=== PATIENT | male | born 1960 | race Caucasian/White ===

== ENCOUNTER 2018-05-19 06:24 | Observation (INO) ==
[2018-05-19] MEDS ORDERED: Bupivacaine/Epinephrine 0.5% Inj 50 ML Vial ONE (07:11)
[2018-05-19] MEDS ORDERED: fentaNYL Citrate Inj 100 MCG/2 ML Ampul ONE ×2 (08:18→12:12)
[2018-05-19] MEDS: ceFAZolin 2 GM Premix Inj 2 GM/50 ML PIGGYBACK IV.SIG ONE ×2 (09:20→18:23)
[2018-05-19] MEDS: Bupivacaine/Epinephrine 0.5% Inj 50 ML Vial ONE ×2 (10:52→18:22)
[2018-05-19] MEDS: Thrombin Topical Soln 5,000 UNIT Vial TOPICAL ONE ×2 (10:53→18:23)
[2018-05-19] MEDS ORDERED: Phenylephrine/NS 1000 MCG/10ML Syringe IV.PUSH ONE (12:00)
[2018-05-19] MEDS ORDERED: Glycopyrrolate Inj 1 MG/5 ML Syringe IV.PUSH ONE (12:00)
[2018-05-19] MEDS ORDERED: Neostigmine Inj 5 MG/5 ML Syringe IV.PUSH ONE (12:00)
[2018-05-19] MEDS ORDERED: Lidocaine PF 1% Inj 5 ML Syringe INFILTRATN ONE (12:00)
[2018-05-19] MEDS ORDERED: Morphine Inj 4 MG/ML Vial ONE (12:12)
[2018-05-19] MEDS ORDERED: Bisacodyl 10 MG Supp RECTAL PRN (12:12)
[2018-05-19] MEDS ORDERED: *morphine SULFATE 10 MG/ML PERIprocedure ONLY ONE ×2 (12:35→13:39)
--- NOTE | 2018-05-19 13:02 | XR ---
EXAM DATE: 05/19/2018 12:58 PM EDT AGE/SEX: 58 years / Male INDICATIONS: Herniated disk CLINICAL DATA: This is the patient's initial encounter. Patient reports that signs and symptoms have been present for 1 day and indicates a pain score of Nonresponsive. MEDICAL/SURGICAL HISTORY: . Herniated disk None. COMPARISON: No prior exams available for comparison. FINDINGS: Lateral intraoperative fluoroscopic views of the lower lumbar spine demonstrate localization probe pr ojecting posterior to the L4-5 intervertebral disc space on image 1 and posterior to the L3-4 articul ar facet joint on image 2. CONCLUSION: Localization as above. Electronically signed by: Stew Carrion MD 05/19/2018 1:01 PM EDT
--- NOTE | 2018-05-19 13:03 | P.OP ---
- Preoperative Diagnosis (1) Lumbar spinal stenosis - Postoperative Diagnosis (1) Lumbar spinal stenosis Date of procedure: 05/19/18 Procedure: Left L3-4, L4-5 hemilaminectomy, mesiofacetectomy, foraminotomy, microsurgical resection of the disk Surgeon: Torey Huff MD National Facilities Manager: Isabel Nguyen Pathology: none sent Operation and Findings: INDICATIONS FOR THE SURGICAL PROCEDURE Mr Tim is a 58 year-old male who presented with intractable mechanical back pain and clinical evidence of left L4 and L5 lower extremity radiculopathy. He was found to have significant lumbar spinal stenosis with significant mass effect on the neural structures which correlated with the clinical symptoms. The patient has failed maximum nonsurgical management including multiple modalities of conservative treatment as well as pain management interventions by an interventional pain specialist. A surgical decompression was indicated as a last resort. The [id number] details of the procedure, indications, alternatives, risks and potential complications were fully discussed with the patient. The patient fully understood. All the questions were answered. No guarantees were given. The patient voiced requesting the procedure and provided informed consents. The patient was offered the alternative of delaying the procedure and continuing with nonsurgical management. DETAILS OF THE SURGICAL PROCEDURE After the induction of general anesthesia, endotracheal intubation was performed. A Hedrick catheter, bilateral ALETHA hose and sequential compression devices were placed and kept throughout the procedure. The patient was positioned prone on a Benito table over a Joao frame. All pressure points were carefully padded with eggcrate mattress. The eyes were tapped shut after ointment was applied by the anesthesiologist to prevent corneal abrasion. A Marilia hugger was placed over the exposed lower body to maintain control of the core body temperature. The lower lumbar region was prepped and draped in the usual sterile fashion. A spinal needle was placed for localization and an x- ray performed with a C-arm. A skin incision was made in the midline over the spinous processes L3, L4, L5 with a #10 blade. Small subcutaneous bleeders were controlled with a bipolar and the dissection was carried out through the lumbar fascia exposing the spinous processes. A subperiostial dissection was performed with a Leslie elevator and a Bovie over the L3, L4, L5 spinous process lamina and facets. A microdiscectomy self-retaining retractor was placed on the incision and an x- ray was obtained with an instrument placed underneath the lamina of L4. At this point in the procedure the operating microscope was draped in the usual sterile fashion and brought to the field. The rest of the surgical procedure was performed using microsurgical dissection technique with exception of the closure. Once the level was confirmed, a decompressive laminectomy was performed at L3-4 , and L4-5 on the left side using the TPS drill with an 4mm drill bit. A medial facetectomy was performed and the superior free border of the ligamentum flavum was dissected with a ligament dissector and removed with a thin footplate 2 mm Kerrison. The medial facetectomy was done and the L4, and L5 nerve root were identified and followed towards its exit in the foramen. Epidural veins located laterally to the dural sac were coagulated with a bipolar and incised with microscissors. Gentle medial retraction of the dural sac allowed inspection of the disc space. The patient had severe facet arthropathy with hypertrhopy of the joint facets and ligamentum flavum resulting in mass effect over the dural sac and nerve roots. In addition, there was a broad-based disc protusions at L3- L4, and L4- L5, contributing to the stenosis. The annulus fibrosus of the disc L3-4, and L4-5 were coagulated with the bipolar and incised with an 11 blade. The protuding discs were carefully dissected from the surrounding tissue and removed with pituitary forceps. Then , a microdiscectomy was carried out in the standard fashion using straight and up-biting pituitary forceps. A good decompression of the dural sac and nerve root was achieved. The exit of the nerve root was inspected for residual disc fragments and hemostasis was secured with the bipolar. The incision was irrigated with a large amount of saline solution. A Valsalva maneuver failed to show any cerebrospinal fluid leak or bleeding. The decompression was assessed again and found to be satisfactory. Vancomycin powder was applied to the wound to prevent infection The incision was then closed in layers. The fascia was closed with 0 Vicryl sutures in an interrupted fashion. The superficial fascia was closed with 0 Vicryl sutures. The fascia was infiltrated with 0.5% Marcaine with epinephrine 1:100,000 dilution. The subcutaneous tissue was irrigated then closed with 0 Vicryl and 3 -0 Vicryl. The skin was closed with 4-0 running subcuticular Vicryl. A sterile dressing was applied. At the end of the procedure, the sponge, needle and instrument counts were all correct. Estimated blood loss was less than 100cc. No blood transfusion was given. No intraoperative complications occurred. The patient received prophylactic antibiotics. The patient was then extubated and transferred to the recovery room in stable condition.
[2018-05-19] MEDS ORDERED: Dextrose 50% in Water 50 ML Vial IV.PUSH PRN ×2 (13:05→13:07)
[2018-05-19] MEDS ORDERED: INSULIN DEGLUDEC SQ SCH (14:15)
[2018-05-19] MEDS ORDERED: Insulin NovoLOG Aspart Correctional Sugar Inj SQ ONE (14:51)
[2018-05-19] MEDS: ceFAZolin 2 GM Premix Inj 2 GM/50 ML PIGGYBACK IV.SIG SCH (16:50)
--- NOTE | 2018-05-19 17:58 | ECG ---
Date Performed: 05/19/2018 Time Performed: 07:13:58 PTAGE: 58 years EKG: Sinus rhythm NORMAL ECG Since the PREVIOUS TRACING , no significant change noted PREVIOUS TRACIN10/05/2014 10.27.30 DOCTOR: Rohan Abraham Interpretating Date/Time 05/19/2018 17:56:56
[2018-05-19] MEDS: Insulin NovoLOG Aspart Correctional Sugar Inj SQ SCH (18:00)
[2018-05-19] MEDS: Senna/Docusate Sodium 8.6/50 MG Tablet PO SCH (20:36)
[2018-05-20] MEDS: ceFAZolin 2 GM Premix Inj 2 GM/50 ML PIGGYBACK IV.SIG SCH ×2 (00:50→09:06)
[2018-05-20] MEDS: Insulin NovoLOG Aspart Correctional Sugar Inj SQ SCH ×4 (00:51→13:47)
[2018-05-20] MEDS ORDERED: amLODIPine 10 MG Tablet PO SCH (09:00)
[2018-05-20] MEDS ORDERED: Sertraline 100 MG Tablet PO SCH (09:00)
[2018-05-20] MEDS ORDERED: JARDIANCE 25 MG PO SCH (09:00)
[2018-05-20] MEDS ORDERED: Pantoprazole Sodium 20 MG DR Tablet PO SCH (09:00)
[2018-05-20] MEDS ORDERED: VALSARTAN 80 MG PO SCH (09:00)
[2018-05-20] MEDS ORDERED: PT OWN MED: TRADJENTA (LINAGLIPTIN) 5MG PO DAILY PO SCH (09:00)
[2018-05-20] MEDS: Senna/Docusate Sodium 8.6/50 MG Tablet PO SCH (09:01)
--- NOTE | 2018-05-20 09:57 | P.DS ---
Date of admission: 05/19/18 12:12 Primary care physician: Nathalia Cordon MD Brief History from admission: Mr Tim is a 58 year-old male who presented with intractable mechanical back pain and clinical evidence of left L4 and L5 lower extremity radiculopathy. He was found to have significant lumbar spinal stenosis with significant mass effect on the neural structures which correlated with the clinical symptoms. The patient has failed maximum nonsurgical management including multiple modalities of conservative treatment as well as pain management interventions by an interventional pain specialist. A surgical decompression was indicated as a last resort. DS: Medications - Discharge Medications Prescriptions: hydrocodone-acetaminophen 1 tab PO Q4H PRN #15 tab PRN Reason: Pain DS: Summary Hospital Course: Mr. Tim underwent a Left L3-4, L4-5 hemilaminectomy, mesiofacetectomy, foraminotomy, microsurgical resection of the disk on 05/19/18 for Lumbar spinal stenosis. His surgery went well without complications. He will be discharged home in stable conditions. - Time Spent with Patient Total time spent providing and/or coordinating discharge services: - Quality: VTE Deep Vein Thrombosis/Pulmonary Embolism Present on Admission: No Exam Vital signs: Vital Signs 05/19/18 12:06 05/19/18 12:15 05/19/18 12:30 Temperature 98.0 F Pulse Rate 82 78 72 Respiratory Rate 16 16 16 Blood Pressure 134/70 139/75 130/70 Pulse Oximetry 97 98 95 05/19/18 12:45 05/19/18 13:00 05/19/18 14:00 Temperature Pulse Rate 72 74 68 Respiratory Rate 16 16 16 Blood Pressure 119/63 124/66 116/60 Pulse Oximetry 95 95 97 05/19/18 15:00 05/19/18 16:00 05/19/18 18:00 Temperature Pulse Rate 70 70 68 Respiratory Rate 16 16 16 Blood Pressure 104/59 L 108/60 121/70 Pulse Oximetry 98 97 97 05/19/18 20:00 05/20/18 00:00 05/20/18 02:30 Temperature 97.3 F L 98.7 F Pulse Rate 21 L 66 Respiratory Rate 21 20 15 Blood Pressure 117/75 108/65 Pulse Oximetry 98 96 05/20/18 04:00 05/20/18 08:00 Temperature 97.9 F 98.7 F Pulse Rate 78 67 Respiratory Rate 19 16 Blood Pressure 141/93 H 146/80 H Pulse Oximetry 93 L 96 Intake & Output 05/19/18 05/20/18 05/20/18 18:59 06:59 18:59 Intake Total 2500 / 2500 950 / 950 Output Total 250 / 250 Balance 2250 / 2250 950 / 950 Weight 88 kg 88 kg Intake: IV 100 / 100 50 / 50 Ancef 2 GM Premix Inj 2 gm In 100 / 100 50 / 50 50 ml @ 100 mls/hr IV.SIG Q8H FRANKY Rx#:[id number] Oral 900 / 900 Anesthesia Amount 2400 / 2400 Output: Estimated Blood Loss 100 / 100 Urine Amount (Catheter) 150 / 150 Indwelling Urethral Catheter 150 / 150 Other: # Voids 3 Date of Last Bowel Movement 05/19/18 Weight On Admission 88 kg Results Procedures completed during hospitalization: Left L3-4, L4-5 hemilaminectomy, mesiofacetectomy, foraminotomy, microsurgical resection of the disk Labs on day of discharge: Labs from last 24 hours 05/20/18 05/20/18 05/19/18 08:15 06:03 23:24 POC Glucose 165 H 162 H 139 H Nasal Screen MRSA (PCR) 05/19/18 05/19/18 05/19/18 17:51 14:54 12:13 POC Glucose 210 H 208 H 139 H Nasal Screen MRSA (PCR) 05/19/18 07:00 POC Glucose Nasal Screen MRSA (PCR) Not detected - Impressions ITS Impressions Lumbar Spine X-Ray 05/19/18 00:00 CONCLUSION: Localization as above. Discharge Plan - Discharge Disposition Patient Disposition: 01 Discharge Home - Discharge Condition Condition: Good - Discharge Order Discharge Orders: Discharge Order (Routine); Ordered 05/20/18 Ordered By: Jenae Griffiths - Physicians Team Primary Care Provider: Nathalia Cordon Attending Provider: Torey Huff - Rxs /Orders / Referrals /Forms Prescriptions: New hydrocodone-acetaminophen 10-325 mg Tablet 1 tab PO Q4H PRN (Reason: Pain) Qty: 15 RF: 0 Continue amlodipine 10 mg Tablet 10 mg PO DAILY empagliflozin [Jardiance] 25 mg Tablet 25 mg PO DAILY insulin aspart U-100 [Novolog Flexpen U-100 Insulin] 100 unit/mL Insulin Pen 7 unit SUB-Q TID insulin degludec [Tresiba FlexTouch U-100] 100 unit/mL (3 mL) Insulin Pen 36 unit SUB-Q DAILY linagliptin [Tradjenta] 5 mg Tablet 5 mg PO DAILY omeprazole 20 mg Capsule,Delayed Release(Dr/Ec) 20 mg PO DAILY sertraline 100 mg Tablet 200 mg PO DAILY valsartan 80 mg Tablet 80 mg PO DAILY Referrals: Nathalia Cordon MD [Primary Care Provider] - See Instructions - Discharge Instructions Patient Printed Instructions: Laminectomy (DC)
[2018-05-20 12:13] VITALS: BP 152/74; PULSE 71; RESP 18; TEMP 98.6; O2SAT 95
== END 2018-05-20 14:14 | disposition home or self-care (01) ==
LOC: HSDI 06:24 → N06 06:24 → HSDC 06:24 → N06 18:39
PROVIDERS: ADMIT Neurological Surgery; ATTEND Neurological Surgery

== ENCOUNTER 2018-06-06 18:14 | Inpatient (IN) ==
[2018-06-06] MEDS ORDERED: Sod Chloride 0.9% Inj 2,000 ML IV.SIG ONE (18:57)
[2018-06-06] MEDS ORDERED: Sod Chloride 0.9% Inj 1,000 ML IV.SIG ONE (18:57)
[2018-06-06 19:23] LABS: VBG Base Excess -26.7 mmol/L (-2-2); VBG Blood Gas Oxygen Content 14.8 Vol % (9.0-17.0); VBG PCO2 18 mmHG (44-48); VBG PH 6.91 (7.360-7.400); VBG PO2 46 mmHG (35-40)
[2018-06-06] MEDS ORDERED: Potassium Chlor 40 mEq Premix 40 MEQ/100 ML PIGGYBACK IV.SIG PRN ×2 (19:32)
[2018-06-06] MEDS ORDERED: Potassium Chlor 20 mEq Premix 20 MEQ/100 ML PIGGYBACK IV.SIG PRN ×3 (19:32)
[2018-06-06 19:45] LABS: Baso % (Auto) 0.3 % (0.0-2.0); Hematocrit 48.8 % (39.0-51.0); Hemoglobin 15.2 gm/dL (13.0-17.0); Lymph # (Auto) 0.3 th/mm3 (1.0-4.8); Lymph % (Auto) 2.4 % (9.0-44.0); Mean Corpuscular HGB Conc 31.2 % (32.0-36.0); Mean Corpuscular Hemoglobin 32.9 pg (27.0-34.0); Mean Corpuscular Volume 105.4 fL (80.0-100.0); Mono # (Auto) 0.6 th/mm3 (0.0-0.9); Mono % (Auto) 4.2 % (0.0-8.0); Neut # (Auto) 12.7 th/mm3 (1.8-7.7); Neut % (Auto) 93.1 % (16.0-70.0); Platelet Count 230 th/mm3 (150-450); Red Blood Count 4.63 mil/mm3 (4.50-5.90); Red Cell Distribution Width 14.6 % (11.6-17.2); White Blood Count 13.7 th/mm3 (4.0-11.0)
[2018-06-06 20:36] LABS: Lymphocytes 1 % (9-44); Metamyelocytes 1 % (0-1); Monocytes 5 % (0-8); Myelocytes 2 % (0-0)
[2018-06-06 20:37] LABS: Platelet Estimate Normal (Normal); Platelet Morphology Normal (Normal); Toxic Vacuolation Present
[2018-06-06] MEDS: Sod Chloride 0.9% Inj 1,000 ML IV.CONT SCH (20:53)
[2018-06-06] MEDS: Insulin Regular (For Infusion) 100 UNIT in Sodium Chlor 0.9% Inj 99 ML IV.CONT PRN (20:53)
[2018-06-06 20:55] LABS: Alkaline Phosphatase 197 U/L (45-117); Beta Hydroxybutyric Acid 12.93 mmol/L (0.00-0.39); Creatine Kinase 655 U/L (39-308); Total Protein 7.4 g/dL (6.4-8.2)
[2018-06-06 20:57] LABS: Alanine Aminotransferase 47 U/L (12-78); Albumin 3.4 g/dL (3.4-5.0); Anion Gap 29 meq/L (5-15); Aspartate Aminotransferase 48 U/L (15-37); Blood Urea Nitrogen 65 mg/dL (7-18); Calcium 8.8 mg/dL (8.5-10.1); Chloride 83 meq/L (98-107)
[2018-06-06 20:58] LABS: Glomerular Filtration Rate 30 mL/min (>89)
[2018-06-06 21:08] LABS: Glucose,Random 526 mg/dL (74-106); Sodium 117 meq/L (136-145)
--- NOTE | 2018-06-06 21:14 | P.HPCC ---
History of Present Illness Primary Care Physician: Nathalia Cordon MD Chief Complaint: Altered mental status History of Present Illness: 58-year-old male with a medical history significant for diabetes mellitus who recently underwent decompression surgery for lumbar spine on 05/19 and was subsequently discharged on 05/[address] Huff. He underwent a follow-up as outpatient with Dr. Huff's office on 06/05. He reportedly had stopped taking his insulin 2 days back and he developed worsening mental status since yesterday and was brought to the ER by his today where he was noted to be confused and disoriented and appeared dehydrated. His fingerstick glucose was 500s, ABG done in the ER revealed severe metabolic acidosis. BMP was still pending when I evaluated the patient. He had received IV insulin and was to be started on an insulin drip at the time of my evaluation. He had also received 2 L normal saline bolus and was getting his third liter IV fluid. Patient was awake and alert however could not tell me the date month or year. He could not tell me that he was in the hospital though he was following commands appropriately. He was slightly tachypneic however did not appear to be in any acute distress. ER and diagnosed patient with diabetic ketoacidosis earlier and has instituted DKA protocol. Inpatient Certification: I certify that the inpatient services were ordered in accordance with Medicare regulations governing the order. This includes certification that hospital inpatient services are reasonable and necessary and in the case of services not specified as inpatient-only under 42 CFR 419.22(n), that they are appropriately provided as inpatient services in accordance to with the 2-midnight benchmark under 43 CFR 412.3(e) Estimated Total Length of Stay (Days): 5 Plans for Post Hospital Care: Not yet determined Review of Systems All other systems reviewed negative except as stated in HPI, unobtainable due to mental status PMFSH - History History Provided By: Patient, Family Member - Medical History Medical History: Medical History (Last Reviewed 06/06/18 @ 19:03 by [email or web address]) Back pain Diabetes GERD (gastroesophageal reflux disease) Hypertension Tear of biceps muscle - Surgical History Surgical History: Surgical History (Last Updated 06/06/18 @ 19:03 by [email or web address]) Previous back surgery History of tonsillectomy and adenoidectomy History of total replacement of right hip Hx of cataract surgery - Tobacco History Second Hand Smoke Exposure: No Tobacco Use In Past 30 Days: No Smoking Status: Former smoker - Alcohol History How Often Do You Have a Drink Containing Alcohol: 4 or more times a week - Substance Use History Substance History: No History of Abuse - Travel History Recent Travel in the [place] Within the Last 8 Weeks: No Recent Travel Out of the Country Within the Last 8 Weeks: No - Immunization History Tetanus Immunization: Unsure Hx Influenza Vaccine This Season: No Medications and Allergies Active Medications: Active Medications Potassium Chloride (Kcl 20 Meq Premix Inj) 20 meq in 100 mls @ 100 mls/hr IV.SIG Q1H PRN PRN Reason: for K+ 4.5 to 5 Potassium Chloride (Kcl 20 Meq Premix Inj) 20 meq in 100 mls @ 50 mls/hr IV.SIG Q2H PRN PRN Reason: for K+ 4.5 to 5 Potassium Chloride (Kcl 20 Meq Premix Inj) 20 meq in 100 mls @ 100 mls/hr IV.SIG Q1H PRN PRN Reason: for K+ 3.5 to 4.4 Potassium Chloride (Kcl 20 Meq Premix Inj) 20 meq in 100 mls @ 50 mls/hr IV.SIG Q2H PRN PRN Reason: for Initial K+ ONLY < 3.5 Potassium Chloride (Kcl 40 Meq Premix Inj) 40 meq in 100 mls @ 100 mls/hr IV.SIG Q1H PRN PRN Reason: for Initial K+ ONLY < 3.5 Potassium Chloride (Kcl 20 Meq Premix Inj) 20 meq in 100 mls @ 50 mls/hr IV.SIG Q2H PRN PRN Reason: for Subsequent K+ < 3.5 Potassium Chloride (Kcl 40 Meq Premix Inj) 40 meq in 100 mls @ 50 mls/hr IV.SIG Q2H PRN PRN Reason: for Subsequent K+ < 3.5 Sodium Phosphate 15 mmol/ (Sodium Chloride) 105 mls @ 25 mls/hr IV.SIG UNSCH PRN PRN Reason: for Phosphate Level < 1.0 Dextrose/Sodium Chloride (D5w/Normal Saline Inj) 1,000 mls @ 200 mls/hr IV.CONT .Q5H FRANKY Potassium Chloride (Kcl 20 Meq Premix Inj) 20 meq in 100 mls @ 50 mls/hr IV.SIG Q2H PRN PRN Reason: for K+ 3.5 to 4.4 Sodium Chloride (Ns Inj) 1,000 mls @ 250 mls/hr IV.CONT .Q4H FRANKY Insulin Human Regular 100 unit (/ Sodium Chloride) 100 mls @ 10 mls/hr IV.CONT TITRATE PRN; Protocol PRN Reason: See protocol Sodium Bicarbonate (Sodium Bicarbonate 8.4% Inj) 100 meq IV.PUSH UNSCH PRN PRN Reason: for pH less than 6.9 Sodium Bicarbonate (Sodium Bicarbonate 8.4% Inj) 50 meq IV.PUSH UNSCH PRN PRN Reason: for pH 6.9 to 7.0 Last Admin: 06/06/18 20:27 Dose: 50 meq Allergies Allergy/AdvReac Type Severity Reaction Status Date / Time metformin Allergy Severe Abdominal Verified 05/19/18 07:07 Pain prednisone Allergy Severe Rash Verified 05/19/18 07:07 diclofenac Allergy Intermediate Swelling Verified 05/19/18 07:07 lisinopril Allergy Mild DRY COUGH Verified 05/19/18 07:07 Home Medications Medication Instructions Recorded Confirmed Type amlodipine 10 mg PO DAILY 05/18/18 05/19/18 History empagliflozin [Jardiance] 25 mg PO DAILY 05/18/18 05/19/18 History insulin aspart U-100 [Novolog 7 unit SUB-Q TID 05/18/18 05/19/18 History Flexpen U-100 Insulin] insulin degludec [Tresiba 36 unit SUB-Q DAILY 05/18/18 05/19/18 History FlexTouch U-100] linagliptin [Tradjenta] 5 mg PO DAILY 05/18/18 05/19/18 History omeprazole 20 mg PO DAILY 05/18/18 05/19/18 History sertraline 200 mg PO DAILY 05/18/18 05/19/18 History valsartan 80 mg PO DAILY 05/18/18 05/19/18 History Results - Labs CBC & Chem 7: 06/06/18 19:30 06/06/18 19:30 Labs: Short CBC 06/06/18 Range/Units 19:30 WBC 13.7 H (4.0-11.0) th/mm3 Hgb 15.2 (13.0-17.0) gm/dL Hct 48.8 (39.0-51.0) % Plt Count 230 (150-450) th/mm3 Exam Vital signs: Vital Signs 06/06/18 18:19 06/06/18 18:57 06/06/18 18:58 Temperature 98.7 F Pulse Rate 76 78 Respiratory Rate 42 H 28 H Blood Pressure 120/61 137/72 Pulse Oximetry 95 99 100 06/06/18 19:59 Temperature Pulse Rate 87 Respiratory Rate 22 Blood Pressure 136/66 Pulse Oximetry 100 Intake & Output 06/06/18 06/06/18 06/07/18 06:59 18:59 06:59 Weight 97.522 kg Narrative: HEENT/Neuro: No pallor or icterus, tongue dry, JANUARY, Awake alert, disoriented/ confused, nonfocal grossly, moving all 4 extremities Neck: No JVD Chest/pulmonary: CTA bilaterally Cardiovascular: S1-S2 regular no gallop or murmur GI/abdomen: Soft, nontender, bowel sounds present Extremities: Warm bilaterally, no edema Caprini VTE Risk Assessment Caprini VTE Risk Assessment: Moderate/High Risk (score >= 2) Caprini Risk Assessment Model: Point Value = 1 Point Value = 2 Point Value = 3 Point Value = 5 Age 41-60 Minor surgery BMI > 25 kg/m2 Swollen legs Varicose veins or History of unexplained or recurrent spontaneous Oral contraceptives or hormone replacement Sepsis (< 1 month) Serious lung disease, including pneumonia (< 1 month) Abnormal pulmonary function Acute myocardial infarction Congestive heart failure (< 1 month) History of inflammatory bowel disease Medical patient at bed rest Age 61-74 Arthroscopic surgery Major open surgery (> 45 min) Laparoscopic surgery (> 45 min) Malignancy Confined to bed (> 72 hours) Immobilizing plaster cast Central venous access Age >= 75 History of VTE Family history of VTE Factor V Leiden Prothrombin [id number] Lupus anticoagulant Anticardiolipin antibodies Elevated serum homocysteine Heparin-induced thrombocytopenia Other congenital or acquired thrombophilia Stroke (< 1 month) Elective arthroplasty Hip, pelvis, or leg fracture Acute spinal cord injury (< 1 month) Prophylaxis Regimen: Total Risk Factor Score Risk Level Prophylaxis Regimen 0-1 Low Early ambulation 2 Moderate Order ONE of the following: *Sequential Compression Device (SCD) *Heparin 5000 units SQ BID 3-4 Higher Order ONE of the following medications: *Heparin 5000 units SQ TID *Enoxaparin/Lovenox 40 mg SQ daily (WT < 150 kg, CrCl > 30 mL/min) *Enoxaparin/Lovenox 30 mg SQ daily (WT < 150 kg, CrCl > 10-29 mL/min) *Enoxaparin/Lovenox 30 mg SQ BID (WT < 150 kg, CrCl > 30 mL/min) AND/OR *Sequential Compression Device (SCD) 5 or more Highest Order ONE of the following medications: *Heparin 5000 units SQ TID (Preferred with Epidurals) *Enoxaparin/Lovenox 40 mg SQ daily (WT < 150 kg, CrCl > 30 mL/min) *Enoxaparin/Lovenox 30 mg SQ daily (WT < 150 kg, CrCl > 10-29 mL/min) *Enoxaparin/Lovenox 30 mg SQ BID (WT < 150 kg, CrCl > 30 mL/min) AND *Sequential Compression Device (SCD) Assessment and Plan - Assessment and Plan Plan: 58-year-old male with: Encephalopathy Dehydration Uncontrolled diabetes mellitus Metabolic acidosis most likely DKA (chemistries pending) Recent back surgery Plan: Neuro: Follow neuro status. Avoid sedatives and narcotics. Most likely altered mental status secondary to DKA. Will obtain head CT without contrast. Cardiovascular: IV hydration, watch for hypotension. Will use labetalol as needed for hypertension. Resume p.o. antihypertensives in a.m if no hypotension. Pulmonary: Supplemental O2 as needed. Chest x-ray appears clear with no obvious infiltrates. Bronchodilators as needed. GI/liver: N.p.o. for now. Zofran as needed for nausea vomiting. Renal/: IV hydration, strict intake output, monitor and replete electrolytes, follow BUN creatinine. Chemistries still pending at the time of my evaluation. ID: No antibiotics indicated at this time. Endocrine: DKA protocol started in the ER. Still awaiting BMP. Heme: Follow CBC Prophylaxis: PPI/SCDs. Subcu Lovenox starting tomorrow. Condition critical Time spent on critical care excluding procedures 50 minutes
[2018-06-06] MEDS ORDERED: Bisacodyl 10 MG Supp RECTAL PRN (21:15)
[2018-06-06 21:17] LABS: CKMB Percent 3.4 % (0.0-4.0)
[2018-06-06] MEDS ORDERED: Dextrose 50% in Water 50 ML Vial IV.PUSH ONE (21:21)
--- NOTE | 2018-06-06 21:33 | ED ---
HPI General Chief Complaint: Altered Mental Status Stated Complaint: medical Time Seen by Provider: 06/06/18 18:40 Source: patient and family Mode of arrival: wheelchair Limitations: altered mental status History of Present Illness HPI narrative: 58-year-old male the presents to the ED for evaluation of altered mental status. Patient has a history of diabetes and takes insulin. Per significant other patient stopped taking his insulin about 2 days ago possibly. Patient has been becoming more altered since yesterday. Before this patient was normal. Patient did had a surgery about 2 weeks ago for his lower back by Dr. Huff. He has been doing well postop. Patient was actually seen yesterday by the office of Dr. Huff for postop check and her family member they did not find him to be somewhat altered. Unclear as to what happened. Patient denies any chest pain. He does state being somewhat short of breath. He denies any urinary or bowel movement issues. Most of the history is obtained through the significant other as patient himself cannot give much history. Patient does appear to be altered and confused and is hard to get a history from him. She does appear to smell of acetone. Related Data Home Medications Medication Instructions Recorded Confirmed amlodipine 10 mg PO DAILY 05/18/18 05/19/18 empagliflozin [Jardiance] 25 mg PO DAILY 05/18/18 05/19/18 insulin aspart U-100 [Novolog 7 unit SUB-Q TID 05/18/18 05/19/18 Flexpen U-100 Insulin] insulin degludec [Tresiba 36 unit SUB-Q DAILY 05/18/18 05/19/18 FlexTouch U-100] linagliptin [Tradjenta] 5 mg PO DAILY 05/18/18 05/19/18 omeprazole 20 mg PO DAILY 05/18/18 05/19/18 sertraline 200 mg PO DAILY 05/18/18 05/19/18 valsartan 80 mg PO DAILY 05/18/18 05/19/18 Previous Rx's Medication Instructions Recorded hydrocodone-acetaminophen 1 tab PO Q4H PRN #15 tab 05/19/18 Allergies Allergy/AdvReac Type Severity Reaction Status Date / Time metformin Allergy Severe Abdominal Verified 05/19/18 07:07 Pain prednisone Allergy Severe Rash Verified 05/19/18 07:07 diclofenac Allergy Intermediate Swelling Verified 05/19/18 07:07 lisinopril Allergy Mild DRY COUGH Verified 05/19/18 07:07 Review of Systems ROS: all other systems reviewed are negative [facility] Medical History Medical History Back pain (Acute) Diabetes (Acute) GERD (gastroesophageal reflux disease) (Acute) Hypertension (Acute) Tear of biceps muscle (Acute) Surgical History Surgical History Previous back surgery (Acute) History of tonsillectomy and adenoidectomy (Acute) History of total replacement of right hip (Acute) Hx of cataract surgery (Acute) Social History Social History Substance History: Active Abuse Second Hand Smoke Exposure: No Smoking Status: Former smoker How Often Do You Have a Drink Containing Alcohol: 4 or more times a week Recent Travel in [facility] within the Last 8 Weeks: No Recent Out of Country Travel within the Last 8 Weeks: No Immunization History Tetanus Immunization: Unsure Hx Influenza Vaccine This Season: No Exam Narrative Exam Narrative: GENERAL: Altered and somewhat diaphoretic SKIN: Focused skin assessment warm/dry. HEAD: Atraumatic. Normocephalic. EYES: Pupils equal and round. No scleral icterus. No injection or drainage. ENT: No nasal bleeding or discharge. Mucous membranes pink and moist. Tongue is midline. No uvula deviation. NECK: Trachea midline. No JVD. CARDIOVASCULAR: Regular rate and rhythm. No murmur appreciated. RESPIRATORY: No accessory muscle use. Clear to auscultation. Breath sounds equal bilaterally. GASTROINTESTINAL: Abdomen soft, non-tender, nondistended. Hepatic and splenic margins not palpable. MUSCULOSKELETAL: No obvious deformities. No clubbing. No cyanosis. No edema. Full range of motion of the upper and lower extremities bilaterally. 2+ pulses bilaterally. NEUROLOGICAL: Awake and alert. No obvious cranial nerve deficits. Motor grossly within normal limits. Normal speech. PSYCHIATRIC: Altered mood and affect; insight and judgment minimal Course Reevaluation(s) Reevaluation #1: patient discussed with environmental construction engineer, Dr Silva; patient was seen at the bedside by the environmental construction engineer; once metabolic panel resulted -- environmental construction engineer notified --aware patient had received bolus regular insulin 10 u IV 3 liters bolus NS and insulin infusion started with bgm 431 from 503 -- metabolic panel: sodium 117,potassium 6.0, bicarb <5, ag 29, glucose 526, and bun/cr: 65/2.26 --environmental construction engineer requested in the ED the patient receive additional bolus of regular insulin 10 U IV and 1 amp D50 IV prior to leaving the ED; had already received 1 amp sodium bicarb upon resulting venous pH of 6.9 per protocol. Initial Documented Vital Signs Temperature 98.7 F 06/06/18 18:19 Pulse Rate 76 06/06/18 18:19 Respiratory Rate 42 H 06/06/18 18:19 Blood Pressure 120/61 06/06/18 18:19 Pulse Oximetry 95 06/06/18 18:19 Last Documented Vital Signs Temperature 98.7 F 06/06/18 18:19 Pulse Rate 87 06/06/18 19:59 Respiratory Rate 22 06/06/18 19:59 Blood Pressure 136/66 06/06/18 19:59 Pulse Oximetry 100 06/06/18 19:59 Critical Care Time Critical Care Time: Yes Total Critical Care Time: 35 Attestation: Aggregate critical care time was 35 minutes. Time to perform other separately billable procedures was not included in the critical care time. My time did not include minutes spent treating any other patients simultaneously or on activities that did not directly contribute to the patient's treatment. The services I provided to this patient were to treat and/or prevent clinically significant deterioration that could result in: Arrhythmia, cardiac arrest, I provided critical care services requiring my management, as noted below: Chart data review, documentation time, medication orders and management, vital sign assessments/reviewing monitor data, ordering and reviewing lab tests, ordering and interpreting/reviewing x-rays and diagnostic studies, care of the patient and discussion of the patient with the admitting physicians. Medical Decision Making VIRIDIANA Attestation VIRIDIANA supervised visit: Yes Attestation: I, Dr. Liu, have reviewed the advance practice practitioner's documentation and am in agreement, met with the patient face to face, made the diagnosis, and the medical decision making was done by me. *My assessment and Findings: 58-year-old male with known diabetes insulin- dependent presents to the emergency department in the care of family for altered mentation and rapid breathing. Patient is 2 weeks status post low back surgery by his neurosurgeon Dr. Huff and was seen in the office doing well yesterday and then since last evening family has noted change in patient's mentation and respiratory rate. Blood sugar was noted to be elevated. Patient was brought to the emergency room for further evaluation. Upon patient's arrival patient mildly agitated and altered with blood sugar over 500 in triage with rapid respiratory rate concerning for DKA. Patient was seen in the identified to have hyperglycemia started on IV fluid infusion and regular insulin administration 10 units IV weight based. In view of patient's history and presentation a venous pH was obtained which was identified to be 6.9 consistent with patient being in marked DKA protocol was initiated and environmental construction engineer called. On physical exam patient noted to have mild tachypnea with normal blood pressure and heart rate oral mucosa dry heart sounds clear lung sounds clear to auscultation lower extremities without swelling or Homans. MDM Narrative Medical decision making narrative: 58-year-old male the presents to the ED for evaluation of possible DKA. Patient was properly examined and was found to have signs and symptoms consistent appears to be DKA. Patient does smell somewhat of acetone. Patient's blood sugar was found to be in triage at 500. Labs and imaging were ordered. My attending was made aware of findings. Fluids were started. Patient was started on 2 L and given another one for a top of 3. Patient was given IV insulin and DKA protocols were ordered. Venous blood gas did show what appears to be acidosis. My attending recommends speaking with environmental construction engineer. [employer] Dr. Silva was made aware of findings and agrees to admit the patient. Once blood work and DKA protocol to be continued. Labs and imaging were done and did show what appears to be acute kidney failure with elevated potassium. My attending was made aware of findings and spoke with Dr. Silva who wanted additional medications to be given. This was ordered by her. Case was discussed with the family member who agrees to admission. Medical Screen Exam Complete: Yes Emergency Medical Condition: Yes Differential Diagnosis Differential Diagnosis: DKA versus severe DKA versus acidosis versus the hydration versus kidney failure Medical Records Medical records reviewed: Yes I reviewed the patient's medical records. Lab Data Lab results reviewed: Yes I reviewed the patient's lab results. Lab results narrative: Venous study showed acidosis. acetone elevated. Result diagrams: 06/06/18 19:30 08/18/18 19:30 Lab Results 06/06/18 06/06/18 06/06/18 Range/Units 19:02 19:30 19:30 WBC 13.7 H (4.0-11.0) th/mm3 RBC 4.63 (4.50-5.90) mil/mm3 Hgb 15.2 (13.0-17.0) gm/dL Hct 48.8 (39.0-51.0) % MCV 105.4 H (80.0-100.0) fL MCH 32.9 (27.0-34.0) pg MCHC 31.2 L (32.0-36.0) % RDW 14.6 (11.6-17.2) % Plt Count 230 (150-450) th/mm3 MPV 9.0 (7.0-11.0) fL Prelim Diff (Auto) Slide review pending Neut % (Auto) 93.1 H (16.0-70.0) % Lymph % (Auto) 2.4 L (9.0-44.0) % [place] % (Auto) 4.2 (0.0-8.0) % Eos % (Auto) 0.0 (0.0-4.0) % Baso % (Auto) 0.3 (0.0-2.0) % Neut # (Auto) 12.7 H (1.8-7.7) th/mm3 Lymph # (Auto) 0.3 L (1.0-4.8) th/mm3 [place] # (Auto) 0.6 (0.0-0.9) th/mm3 Eos # (Auto) 0.0 (0.0-0.4) th/mm3 Baso # (Auto) 0.0 (0.0-0.2) th/mm3 WBC Differential Manual diff final Seg Neuts % (Manual) 85 H (16-70) % Band Neuts % (Manual) 6 (0-6) % Lymphocytes % (Manual) 1 L (9-44) % Monocytes % (Manual) 5 (0-8) % Metamyelocytes % (Man) 1 (0-1) % Myelocytes % (Man) 2 H (0-0) % Abs Neuts (Manual) 12.9 H (1.8-7.7) th/mm3 Differential Comment . Toxic Vacuolation Present H (None) Platelet Estimate Normal (Normal) Platelet Morphology Normal (Normal) APTT 45.8 H (24.3-30.1) sec Puncture Site Iv Patient Temperature 98.6 VBG pH 6.91 L* (7.360-7.400) VBG pCO2 18 L* (44-48) mmHG VBG pO2 46 H (35-40) mmHG VBG HCO3 3 L* (22-26) mmol/L VBG O2 Saturation 75 (70-76) % VBG O2 Content 14.8 (9.0-17.0) Vol % VBG Base Excess -26.7 L (-2-2) mmol/L VBG Carboxyhemoglobin 1.0 (0-4) % VBG Methemoglobin 1.3 (0-2) % Hemoglobin 14.2 (12.0-16.0) G/DL O2 Delivery Device Nasal cannula Liter Flow 2.00 L/M Critical Value Yes Sodium (136-145) meq/L Potassium (3.5-5.1) meq/L Chloride (98-107) meq/L Carbon Dioxide (21.0-32.0) meq/L Anion Gap (5-15) meq/L BUN (7-18) mg/dL Creatinine (0.60-1.30) mg/dL Estimated GFR (>89) mL/min POC Glucose (68-110) mg/dl Random Glucose (74-106) mg/dL Lactic Acid (0.4-2.0) mmol/L Calcium (8.5-10.1) mg/dL Prot Corrected Calcium Total Bilirubin (0.2-1.0) mg/dL AST (15-37) U/L ALT (12-78) U/L Alkaline Phosphatase (45-117) U/L Total Creatine Kinase (39-308) U/L CK-MB (CK-2) (0.5-3.6) ng/mL CK-MB (CK-2) % (0.0-4.0) % Troponin I (0.02-0.05) ng/mL Total Protein (6.4-8.2) g/dL Albumin (3.4-5.0) g/dL Beta-Hydroxybutyric Acd (0.00-0.39) mmol/L TSH (0.358-3.740) uIU/mL 06/06/18 06/06/18 06/06/18 Range/Units 19:30 19:35 19:50 WBC (4.0-11.0) th/mm3 RBC (4.50-5.90) mil/mm3 Hgb (13.0-17.0) gm/dL Hct (39.0-51.0) % MCV (80.0-100.0) fL MCH (27.0-34.0) pg MCHC (32.0-36.0) % RDW (11.6-17.2) % Plt Count (150-450) th/mm3 MPV (7.0-11.0) fL Prelim Diff (Auto) Neut % (Auto) (16.0-70.0) % Lymph % (Auto) (9.0-44.0) % [place] % (Auto) (0.0-8.0) % Eos % (Auto) (0.0-4.0) % Baso % (Auto) (0.0-2.0) % Neut # (Auto) (1.8-7.7) th/mm3 Lymph # (Auto) (1.0-4.8) th/mm3 [place] # (Auto) (0.0-0.9) th/mm3 Eos # (Auto) (0.0-0.4) th/mm3 Baso # (Auto) (0.0-0.2) th/mm3 WBC Differential Seg Neuts % (Manual) (16-70) % Band Neuts % (Manual) (0-6) % Lymphocytes % (Manual) (9-44) % Monocytes % (Manual) (0-8) % Metamyelocytes % (Man) (0-1) % Myelocytes % (Man) (0-0) % Abs Neuts (Manual) (1.8-7.7) th/mm3 Differential Comment Toxic Vacuolation (None) Platelet Estimate (Normal) Platelet Morphology (Normal) APTT (24.3-30.1) sec Puncture Site Patient Temperature VBG pH (7.360-7.400) VBG pCO2 (44-48) mmHG VBG pO2 (35-40) mmHG VBG HCO3 (22-26) mmol/L VBG O2 Saturation (70-76) % VBG O2 Content (9.0-17.0) Vol % VBG Base Excess (-2-2) mmol/L VBG Carboxyhemoglobin (0-4) % VBG Methemoglobin (0-2) % Hemoglobin (12.0-16.0) G/DL O2 Delivery Device Liter Flow L/M Critical Value Sodium 117 L* (136-145) meq/L Potassium 6.0 H (3.5-5.1) meq/L Chloride 83 L (98-107) meq/L Carbon Dioxide Less than 5.0 L (21.0-32.0) meq/L Anion Gap 29 H (5-15) meq/L BUN 65 H (7-18) mg/dL Creatinine 2.26 H (0.60-1.30) mg/dL Estimated GFR 30 L (>89) mL/min POC Glucose 503 H* (68-110) mg/dl Random Glucose 526 H* (74-106) mg/dL Lactic Acid 1.5 (0.4-2.0) mmol/L Calcium 8.8 (8.5-10.1) mg/dL Prot Corrected Calcium Total Bilirubin 0.4 (0.2-1.0) mg/dL AST 48 H (15-37) U/L ALT 47 (12-78) U/L Alkaline Phosphatase 197 H (45-117) U/L Total Creatine Kinase 655 H (39-308) U/L CK-MB (CK-2) 22.0 H (0.5-3.6) ng/mL CK-MB (CK-2) % 3.4 (0.0-4.0) % Troponin I Less than 0.02 L (0.02-0.05) ng/mL Total Protein 7.4 (6.4-8.2) g/dL Albumin 3.4 (3.4-5.0) g/dL Beta-Hydroxybutyric Acd 12.93 H (0.00-0.39) mmol/L TSH 2.070 (0.358-3.740) uIU/mL 06/06/18 06/06/18 06/06/18 Range/Units 20:45 20:51 21:32 WBC (4.0-11.0) th/mm3 RBC (4.50-5.90) mil/mm3 Hgb (13.0-17.0) gm/dL Hct (39.0-51.0) % MCV (80.0-100.0) fL MCH (27.0-34.0) pg MCHC (32.0-36.0) % RDW (11.6-17.2) % Plt Count (150-450) th/mm3 MPV (7.0-11.0) fL Prelim Diff (Auto) Neut % (Auto) (16.0-70.0) % Lymph % (Auto) (9.0-44.0) % [place] % (Auto) (0.0-8.0) % Eos % (Auto) (0.0-4.0) % Baso % (Auto) (0.0-2.0) % Neut # (Auto) (1.8-7.7) th/mm3 Lymph # (Auto) (1.0-4.8) th/mm3 [place] # (Auto) (0.0-0.9) th/mm3 Eos # (Auto) (0.0-0.4) th/mm3 Baso # (Auto) (0.0-0.2) th/mm3 WBC Differential Seg Neuts % (Manual) (16-70) % Band Neuts % (Manual) (0-6) % Lymphocytes % (Manual) (9-44) % Monocytes % (Manual) (0-8) % Metamyelocytes % (Man) (0-1) % Myelocytes % (Man) (0-0) % Abs Neuts (Manual) (1.8-7.7) th/mm3 Differential Comment Toxic Vacuolation (None) Platelet Estimate (Normal) Platelet Morphology (Normal) APTT (24.3-30.1) sec Puncture Site Patient Temperature VBG pH (7.360-7.400) VBG pCO2 (44-48) mmHG VBG pO2 (35-40) mmHG VBG HCO3 (22-26) mmol/L VBG O2 Saturation (70-76) % VBG O2 Content (9.0-17.0) Vol % VBG Base Excess (-2-2) mmol/L VBG Carboxyhemoglobin (0-4) % VBG Methemoglobin (0-2) % Hemoglobin (12.0-16.0) G/DL O2 Delivery Device Liter Flow L/M Critical Value Sodium Cancelled (136-145) meq/L Potassium Cancelled (3.5-5.1) meq/L Chloride Cancelled (98-107) meq/L Carbon Dioxide Cancelled (21.0-32.0) meq/L Anion Gap Cancelled (5-15) meq/L BUN Cancelled (7-18) mg/dL Creatinine Cancelled (0.60-1.30) mg/dL Estimated GFR Cancelled (>89) mL/min POC Glucose 452 H* 455 H* (68-110) mg/dl Random Glucose Cancelled (74-106) mg/dL Lactic Acid (0.4-2.0) mmol/L Calcium Cancelled (8.5-10.1) mg/dL Prot Corrected Calcium Cancelled Total Bilirubin Cancelled (0.2-1.0) mg/dL AST Cancelled (15-37) U/L ALT Cancelled (12-78) U/L Alkaline Phosphatase Cancelled (45-117) U/L Total Creatine Kinase (39-308) U/L CK-MB (CK-2) (0.5-3.6) ng/mL CK-MB (CK-2) % (0.0-4.0) % Troponin I (0.02-0.05) ng/mL Total Protein Cancelled (6.4-8.2) g/dL Albumin Cancelled (3.4-5.0) g/dL Beta-Hydroxybutyric Acd (0.00-0.39) mmol/L TSH (0.358-3.740) uIU/mL 06/06/18 Range/Units 22:34 WBC (4.0-11.0) th/mm3 RBC (4.50-5.90) mil/mm3 Hgb (13.0-17.0) gm/dL Hct (39.0-51.0) % MCV (80.0-100.0) fL MCH (27.0-34.0) pg MCHC (32.0-36.0) % RDW (11.6-17.2) % Plt Count (150-450) th/mm3 MPV (7.0-11.0) fL Prelim Diff (Auto) Neut % (Auto) (16.0-70.0) % Lymph % (Auto) (9.0-44.0) % [place] % (Auto) (0.0-8.0) % Eos % (Auto) (0.0-4.0) % Baso % (Auto) (0.0-2.0) % Neut # (Auto) (1.8-7.7) th/mm3 Lymph # (Auto) (1.0-4.8) th/mm3 [place] # (Auto) (0.0-0.9) th/mm3 Eos # (Auto) (0.0-0.4) th/mm3 Baso # (Auto) (0.0-0.2) th/mm3 WBC Differential Seg Neuts % (Manual) (16-70) % Band Neuts % (Manual) (0-6) % Lymphocytes % (Manual) (9-44) % Monocytes % (Manual) (0-8) % Metamyelocytes % (Man) (0-1) % Myelocytes % (Man) (0-0) % Abs Neuts (Manual) (1.8-7.7) th/mm3 Differential Comment Toxic Vacuolation (None) Platelet Estimate (Normal) Platelet Morphology (Normal) APTT (24.3-30.1) sec Puncture Site Patient Temperature VBG pH (7.360-7.400) VBG pCO2 (44-48) mmHG VBG pO2 (35-40) mmHG VBG HCO3 (22-26) mmol/L VBG O2 Saturation (70-76) % VBG O2 Content (9.0-17.0) Vol % VBG Base Excess (-2-2) mmol/L VBG Carboxyhemoglobin (0-4) % VBG Methemoglobin (0-2) % Hemoglobin (12.0-16.0) G/DL O2 Delivery Device Liter Flow L/M Critical Value Sodium (136-145) meq/L Potassium (3.5-5.1) meq/L Chloride (98-107) meq/L Carbon Dioxide (21.0-32.0) meq/L Anion Gap (5-15) meq/L BUN (7-18) mg/dL Creatinine (0.60-1.30) mg/dL Estimated GFR (>89) mL/min POC Glucose 446 H (68-110) mg/dl Random Glucose (74-106) mg/dL Lactic Acid (0.4-2.0) mmol/L Calcium (8.5-10.1) mg/dL Prot Corrected Calcium Total Bilirubin (0.2-1.0) mg/dL AST (15-37) U/L ALT (12-78) U/L Alkaline Phosphatase (45-117) U/L Total Creatine Kinase (39-308) U/L CK-MB (CK-2) (0.5-3.6) ng/mL CK-MB (CK-2) % (0.0-4.0) % Troponin I (0.02-0.05) ng/mL Total Protein (6.4-8.2) g/dL Albumin (3.4-5.0) g/dL Beta-Hydroxybutyric Acd (0.00-0.39) mmol/L TSH (0.358-3.740) uIU/mL Imaging Data Radiologist's impression: Chest X-Ray 06/06/18 18:57 CONCLUSION: The lungs are clear. Head CT 06/06/18 18:57 CONCLUSION: 1. Negative noncontrast CT brain. . Discharge Plan Discharge Disposition Patient Disposition: 30 Still Patient Discharge Details Diagnosis: DKA (diabetic ketoacidoses), Altered mental status Physicians Team ED Provider: Amanda Liu ED Midlevel Provider: Uriel Abbasi Primary Care Provider: Nathalia Cordon Attending Provider: Craig Silva ED Status: Admitted Patient
--- NOTE | 2018-06-06 21:44 | XR ---
EXAM DATE: 06/06/2018 7:46 PM EDT AGE/SEX: 58 years / Male INDICATIONS: Shortness of breath. Confusion and not feeling well. CLINICAL DATA: This is the patient's initial encounter. Patient reports that signs and symptoms have been present for 3 days and indicates a pain score of 0/10. MEDICAL/SURGICAL HISTORY: None. . Back surgery. Hip replacement COMPARISON: No prior exams available for comparison. FINDINGS: A single AP view of the chest demonstrates the lungs to be symmetrically aerated without evidence of mass, infiltrate or effusion. The cardiomediastinal contours are unremarkable. Osseous structures a re intact. CONCLUSION: The lungs are clear. Electronically signed by: Ayaz Ibarra MD 06/06/2018 9:42 PM EDT
--- NOTE | 2018-06-06 22:15 | CT ---
EXAM DATE: 06/06/2018 10:07 PM EDT AGE/SEX: 58 years / Male INDICATIONS: Altered mental status; patient in DKA. CLINICAL DATA: This is the patient's initial encounter. Patient reports that signs and symptoms have been present for 1 day and indicates a pain score of Nonresponsive. MEDICAL/SURGICAL HISTORY: Diabetes. . Unable to obtain. RADIATION DOSE: 61.34 CTDI (mGy) COMPARISON: No prior exams available for comparison. TECHNIQUE: CT of the head without contrast. Using automated exposure control and adjustment of the mA and/or kV according to patient size, radiation dose was kept as low as reasonably achievable to ob tain optimal diagnostic quality images. DICOM format image data is available electronically for revi ew and comparison. FINDINGS: Cerebrum: The ventricles are normal for age. No evidence of midline shift, mass lesion, hemorrhage or acute infarction. No extraaxial fluid collections are seen. Posterior Fossa: The cerebellum and brainstem are intact. The 4th ventricle is midline. The cerebe llopontine angle is unremarkable. Extracranial: The visualized portion of the orbits is intact. Skull: The calvaria is intact. No evidence of skull fracture. CONCLUSION: 1. Negative noncontrast CT brain. . Electronically signed by: Ayaz Ibarra MD 06/06/2018 10:14 PM EDT
[2018-06-06 23:19] LABS: Calcium 7.6 mg/dL (8.5-10.1); Carbon Dioxide 6.4 meq/L (21.0-32.0); Potassium 4.3 meq/L (3.5-5.1)
[2018-06-07] MEDS: Sod Chloride 0.9% Inj 1,000 ML IV.CONT SCH ×5 (00:39→20:23)
[2018-06-07] MEDS: Potassium Chlor 20 mEq Premix 20 MEQ/100 ML PIGGYBACK IV.SIG PRN ×4 (00:40→20:23)
[2018-06-07 01:31] LABS: Amorphous Sediment,Urine Occasional /hpf; Bacteria,Urine Rare /hpf; Bilirubin,Urine Negative (Negative); Clarity,Urine Turbid (Clear); Color,Urine Yellow (Yellw/Straw); Glucose,Urine (UA) 500 or Greater mg/dL (Negative); Hyaline Casts,Urine 89 /lpf (0-3); Leukocyte Esterase,Urine Negative (Negative); Mucus,Urine Few /lpf (Occasional); Nitrite,Urine Negative (Negative); Specific Gravity,Urine 1.014 (1.002-1.035)
[2018-06-07] MEDS: Dextrose 5%/NaCl 0.9% Inj 1,000 ML IV.CONT SCH ×7 (02:12→22:25)
[2018-06-07] MEDS: Insulin Regular (For Infusion) 100 UNIT in Sodium Chlor 0.9% Inj 99 ML IV.CONT PRN (03:35)
[2018-06-07] MEDS ORDERED: Chlorhexidine Gluconate 2% 1 Pack (2 Cloths) TOPICAL SCH (04:00)
[2018-06-07] MEDS ORDERED: Chlorhexidine Gluconate 2% 1 Pack (2 Cloths) TOPICAL PRN (04:00)
[2018-06-07] MEDS: Pantoprazole Inj 40 MG Vial IV.PUSH SCH (08:00)
[2018-06-07 08:01] LABS: Calcium 8.1 mg/dL (8.5-10.1); Carbon Dioxide 8.6 meq/L (21.0-32.0); Magnesium 2.5 mg/dL (1.5-2.5); Phosphorus 0.8 mg/dL (2.5-4.9)
[2018-06-07] MEDS: Enoxaparin Inj 30 MG/0.3 ML Syringe SQ SCH (08:01)
[2018-06-07] MEDS: Senna/Docusate Sodium 8.6/50 MG Tablet PO SCH ×2 (08:01→22:25)
[2018-06-07 08:09] LABS: Beta Hydroxybutyric Acid 7.52 mmol/L (0.00-0.39)
[2018-06-07] MEDS ORDERED: Haloperidol Inj 5 MG/ML Ampul IV.PUSH PRN (10:38)
[2018-06-07] MEDS ORDERED: LORazepam 1 MG Tablet PO PRN (10:38)
[2018-06-07] MEDS: Sodium Phosphate Inj 15 MMOL in Sodium Chlor 0.9% Inj 100 ML IV.SIG PRN (10:41)
--- NOTE | 2018-06-07 10:56 | P.PNCC ---
Subjective Subjective Remarks/Hospital Course: 58-year-old male with a medical history significant for diabetes mellitus who recently underwent decompression surgery for lumbar spine on 05/19 and was subsequently discharged on 05/[address] Huff. He underwent a follow-up as outpatient with Dr. Huff's office on 06/05. He reportedly had stopped taking his insulin 2 days back and he developed worsening mental status since yesterday and was brought to the ER by his today where he was noted to be confused and disoriented and appeared dehydrated. His fingerstick glucose was 500s, ABG done in the ER revealed severe metabolic acidosis. BMP was still pending when I evaluated the patient. He had received IV insulin and was to be started on an insulin drip at the time of my evaluation. He had also received 2 L normal saline bolus and was getting his third liter IV fluid. Patient was awake and alert however could not tell me the date month or year. He could not tell me that he was in the hospital though he was following commands appropriately. He was slightly tachypneic however did not appear to be in any acute distress. ER and diagnosed patient with diabetic ketoacidosis earlier and has instituted DKA protocol. SUBJECTIVE: 06/07: Quite confused. Knows name and date of . No EtOH history. Site of L3/4 and L4/5 hemilaminectomy with erythema but no drainage. Phosphorus being replaced. Objective Vital Signs / I&O: Vital Signs 06/06/18 18:19 06/06/18 18:57 06/06/18 18:58 Temperature 98.7 F Pulse Rate 76 78 Respiratory Rate 42 H 28 H Blood Pressure 120/61 137/72 Pulse Oximetry 95 99 100 06/06/18 19:59 06/06/18 22:00 06/06/18 23:00 Temperature 92.4 F L Pulse Rate 87 80 79 Respiratory Rate 22 25 H Blood Pressure 136/66 110/63 Pulse Oximetry 100 97 06/07/18 00:00 06/07/18 01:00 06/07/18 02:00 Temperature 95.0 F L Pulse Rate 82 82 102 H Respiratory Rate 26 H Blood Pressure 143/85 H Pulse Oximetry 99 98 06/07/18 03:00 06/07/18 04:00 06/07/18 05:00 Temperature 99.4 F Pulse Rate 106 H 104 H 108 H Respiratory Rate 33 H Blood Pressure 162/76 H Pulse Oximetry 98 06/07/18 06:00 06/07/18 07:00 Temperature 99.0 F Pulse Rate 112 H 101 H Respiratory Rate 27 H Blood Pressure 163/71 H Pulse Oximetry 97 Intake & Output 06/06/18 06/07/18 06/07/18 18:59 06:59 18:59 Intake Total 1200 / 1200 1000 / 1000 Balance 1200 / 1200 1000 / 1000 Weight 97.522 kg 91.3 kg Intake: IV 1200 / 1200 1000 / 1000 D5W/Normal Saline Inj 1,000 ML 1000 / 1000 @ 200 mls/hr IV.CONT .Q5H FRANKY Rx#:[id number] NovoLIN R (IV Infusion) 100 100 / 100 UNIT In NS Inj 99 ML @ 10 UNITS /HR 10 mls/hr IV.CONT TITRATE PRN Rx#:[id number] NS Inj 1,000 ML @ 250 mls/hr IV 1000 / 1000 .CONT .Q4H FRANKY Rx#:[id number] KCl 20 mEq Premix Inj 20 meq In 100 / 100 100 ml @ 50 mls/hr IV.SIG Q2H PRN Rx#:[id number] Other: Weight On Admission 91.3 kg Result Diagrams: 06/06/18 19:30 06/07/18 06:53 Imaging: ITS Impressions Chest X-Ray 06/06/18 18:57 CONCLUSION: The lungs are clear. Head CT 06/06/18 18:57 CONCLUSION: 1. Negative noncontrast CT brain. . Objective Remarks: GENERAL: 58-year-old male quite confused resting in bed on nasal cannula SKIN: Warm and dry. HEAD: Atraumatic. Normocephalic. EYES: Pupils equal and round. No scleral icterus. No injection or drainage. ENT: No nasal bleeding or discharge. Mucous membranes pink and moist. NECK: Trachea midline. No JVD. CARDIOVASCULAR: Regular rate and rhythm. S1, S2 no S4. Without murmur RESPIRATORY: No accessory muscle use. Clear to auscultation. Breath sounds equal bilaterally. GASTROINTESTINAL: Abdomen soft, non-tender, slightly protuberant. Hypoactive bowel sounds appreciated MUSCULOSKELETAL: Extremities without clubbing, cyanosis, or edema. Incision site lumbar region approximately 6 cm with slight erythema surrounding. Not painful to palpation. No pus. NEUROLOGICAL: Awake and alert. No obvious cranial nerve deficits. Motor grossly within normal limits. Five out of 5 muscle strength in the arms and legs. Garbled speech. Assessment and Plan - Assessment and Plan Plan: Neuro/Psych: Acute toxic metabolic encephalopathy likely secondary to EtOH use Depression Brain 06/06 revealed no acute intracranial findings Home medication of hydrocodone/acetaminophen 10/325 1 tab every 4 hours as needed pain Okay to resume sertraline 100 mg daily for depression Acetaminophen 650 p.o. every 6 hours as needed fever CV: Hypertension Home medications are amlodipine 10 mg daily. Patient is also on valsartan 80 mg daily. This is held due to recall As needed labetalol, Nitropaste ordered Resp: Nasal cannula to maintain saturations greater than equal 92% Incentive spirometry every hour while awake Albuterol/ipratropium aerosols every 6 hours while awake with albuterol aerosols every 2 hours. Dyspnea GI: Currently n.p.o. status. Speech therapy for swallow evaluation Pantoprazole for GI prophylaxis. On omeprazole 20 mg daily at home. Docusate sodium/senna 1 tablet twice daily for bowel regimen : The catheter was replaced due to severe agitation and accurate I's and O's in a diabetic ketoacidosis patient Endo: DKA diabetes mellitus uncontrolled Currently on insulin drip which is on hold due to MBS at 150. Will start on D5 normal saline Holding insulin degludec since units daily and aspart U100 7 units 3 times daily and empglizapin 25 mg daily Patient is on linagliptin 5 mg daily? TSH 2. Renal: Heme: Macrocytosis ID: Monitor for signs of hematology infection. Blood cultures 2 06/06 no growth. UA negative MSK: 05/19 left L3/4 and L4/5 hemilaminectomy/mesial facetectomy/foraminotomy by Dr. Huff MRI lumbar spine rule out infectious/abscess FEN: Access -Utilize peripheral IV. Central line if indicated Prophylaxis- -GI -Pantoprazole - SCD/heparin subcu Level 3 follow-up 58-year-old male with: Encephalopathy Dehydration Uncontrolled diabetes mellitus Metabolic acidosis most likely DKA (chemistries pending) Recent back surgery Plan: Neuro: Follow neuro status. Avoid sedatives and narcotics. Most likely altered mental status secondary to DKA. Will obtain head CT without contrast. Cardiovascular: IV hydration, watch for hypotension. Will use labetalol as needed for hypertension. Resume p.o. antihypertensives in a.m if no hypotension. Pulmonary: Supplemental O2 as needed. Chest x-ray appears clear with no obvious infiltrates. Bronchodilators as needed. GI/liver: N.p.o. for now. Zofran as needed for nausea vomiting. Renal/: IV hydration, strict intake output, monitor and replete electrolytes, follow BUN creatinine. Chemistries still pending at the time of my evaluation. ID: No antibiotics indicated at this time. Endocrine: DKA protocol started in the ER. Still awaiting BMP. Heme: Follow CBC Prophylaxis: PPI/SCDs. Subcu Lovenox starting tomorrow. Condition critical Time spent on critical care excluding procedures 50 minutes
[2018-06-07] MEDS: Multivitamin Inj 10 ML, Thiamine Inj 100 MG, Folic Acid Inj 1 MG in Sodium Chlor 0.9% I... IV.SIG SCH (12:02)
[2018-06-07 12:59] LABS: Hemoglobin 13.2 gm/dL (13.0-17.0); Mean Corpuscular HGB Conc 33.9 % (32.0-36.0); Mean Corpuscular Hemoglobin 33.4 pg (27.0-34.0); Mean Corpuscular Volume 98.5 fL (80.0-100.0); Mean Platelet Volume 8.7 fL (7.0-11.0); Platelet Count 126 th/mm3 (150-450); Red Blood Count 3.95 mil/mm3 (4.50-5.90); White Blood Count 8.5 th/mm3 (4.0-11.0)
--- NOTE | 2018-06-07 13:12 | XR ---
EXAM DATE: 06/07/2018 1:05 PM EDT AGE/SEX: 58 years / Male INDICATIONS: MRI clearance, concern for foreign body in abdomen. CLINICAL DATA: This is the patient's initial encounter. Patient reports that signs and symptoms have been present for 1 day and indicates a pain score of Nonresponsive. MEDICAL/SURGICAL HISTORY: Non-responsive. . Hip replacement, right. COMPARISON: [facility], CT ABDOMEN AND PELVIS W/O CONTRAST, 02/13/2017. . FINDINGS: 2 AP views of the abdomen demonstrates no concerning metallic radiopaque foreign body. There is a pu nctate density overlying the left upper quadrant is of uncertain etiology but likely not significant. There is nonobstructive bowel gas pattern and no organomegaly is present. Right total hip arthroplas ty hardware is present. EKG lines overlie the patient and pulse oximeter lead is on the patient's rig ht index finger. CONCLUSION: No concerning radiopaque foreign body is present that would preclude MRI. Electronically signed by: Gerardo Russo MD 06/07/2018 1:11 PM EDT
[2018-06-07 13:28] LABS: Lymphocytes 2 % (9-44); Monocytes 5 % (0-8); Platelet Morphology Normal (Normal)
[2018-06-07 13:29] LABS: RBC Morphology Normal (Normal)
--- NOTE | 2018-06-07 14:22 | ECG ---
Date Performed: 06/06/2018 Time Performed: 19:00:37 PTAGE: 58 years EKG: Sinus rhythm NORMAL ECG Since PREVIOUS TRACING , no significant change noted PREVIOUS TRACIN05/19/2018 07.13 DOCTOR: Gurjit Vega Interpretating Date/Time 06/07/2018 14:21:20
[2018-06-07 15:03] LABS: Albumin 2.7 g/dL (3.4-5.0); Beta Hydroxybutyric Acid 3.51 mmol/L (0.00-0.39); Calcium 8.1 mg/dL (8.5-10.1); Carbon Dioxide 12.6 meq/L (21.0-32.0); Chol/HDL Ratio 5.93 Ratio; HDL Cholesterol 40.3 mg/dL (40.0-60.0); Potassium 3.6 meq/L (3.5-5.1); Total Protein 5.9 g/dL (6.4-8.2)
[2018-06-07 16:13] LABS: Calcium 7.9 mg/dL (8.5-10.1); Carbon Dioxide 12.8 meq/L (21.0-32.0); Magnesium 2.6 mg/dL (1.5-2.5); Phosphorus 1.5 mg/dL (2.5-4.9); Potassium 3.6 meq/L (3.5-5.1)
[2018-06-07] MEDS: Labetalol HCl Inj 100 MG/20 ML Vial IV.PUSH PRN ×2 (18:10→22:59)
[2018-06-08] MEDS: Labetalol HCl Inj 100 MG/20 ML Vial IV.PUSH PRN ×2 (01:03→06:53)
[2018-06-08] MEDS: Insulin Regular (For Infusion) 100 UNIT in Sodium Chlor 0.9% Inj 99 ML IV.CONT PRN (01:03)
[2018-06-08] MEDS: niCARdipine Inj 25 MG in Sodium Chlor 0.9% Inj 240 ML IV.CONT PRN ×3 (02:16→06:51)
[2018-06-08 04:54] LABS: Hemoglobin 14.3 gm/dL (13.0-17.0); Mean Corpuscular HGB Conc 33.9 % (32.0-36.0); Mean Corpuscular Hemoglobin 32.7 pg (27.0-34.0); Mean Corpuscular Volume 96.3 fL (80.0-100.0); Mean Platelet Volume 8.9 fL (7.0-11.0); Platelet Count 100 th/mm3 (150-450); Red Blood Count 4.36 mil/mm3 (4.50-5.90); Red Cell Distribution Width 14.2 % (11.6-17.2); White Blood Count 3.3 th/mm3 (4.0-11.0)
[2018-06-08 05:07] LABS: Beta Hydroxybutyric Acid 0.35 mmol/L (0.00-0.39); Calcium 8.5 mg/dL (8.5-10.1); Carbon Dioxide 19.1 meq/L (21.0-32.0); Magnesium 2.4 mg/dL (1.5-2.5); Phosphorus 0.5 mg/dL (2.5-4.9)
[2018-06-08] MEDS: Dextrose 5%/NaCl 0.9% Inj 1,000 ML IV.CONT SCH ×4 (05:11→22:08)
[2018-06-08] MEDS: Potassium Chlor 20 mEq Premix 20 MEQ/100 ML PIGGYBACK IV.SIG PRN ×5 (06:11→23:16)
[2018-06-08] MEDS: Sodium Phosphate Inj 15 MMOL in Sodium Chlor 0.9% Inj 100 ML IV.SIG PRN ×2 (06:11→13:53)
[2018-06-08] MEDS: Senna/Docusate Sodium 8.6/50 MG Tablet PO SCH ×2 (08:59→21:25)
[2018-06-08] MEDS: Sertraline 100 MG Tablet PO SCH (08:59)
[2018-06-08] MEDS: amLODIPine 10 MG Tablet PO SCH (08:59)
[2018-06-08] MEDS ORDERED: VALSARTAN 80 MG PO SCH (09:00)
[2018-06-08 09:01] LABS: ABG Base Excess -7.9 mmol/L (-2-2); ABG PCO2 20 mmHg (38-42); ABG PO2 66 mmHg (61-120)
[2018-06-08] MEDS ORDERED: Vancomycin Inj 1,750 MG in Sodium Chlor 0.9% Inj 500 ML IV.SIG STA (09:05)
[2018-06-08] MEDS ORDERED: Vancomycin Consult Pharmacy OTHER ONE (09:05)
[2018-06-08] MEDS ORDERED: Midazolam Inj 5 MG/ML 1 ML Vial IV.PUSH STA (09:07)
[2018-06-08] MEDS ORDERED: Midazolam Inj 5 MG/ML 1 ML Vial ONE (09:15)
[2018-06-08] MEDS: Midazolam 50 MG/50 ML Inj 50 MG/50 ML BAG IV.CONT PRN ×4 (10:00→23:15)
--- NOTE | 2018-06-08 10:52 | XR ---
EXAM DATE: 06/08/2018 10:44 AM EDT AGE/SEX: 58 years / Male INDICATIONS: Post intubation CLINICAL DATA: This is the patient's initial encounter. Patient reports that signs and symptoms have been present for 4 - 6 days and indicates a pain score of Nonresponsive. MEDICAL/SURGICAL HISTORY: None. . back surgery, hip replacement. COMPARISON: C, CHEST 1V SINGLE AP, 06/06/2018. . FINDINGS: ETT approximately 2.5 cm above the leticia. NGT in the stomach. Lungs are hypoaerated which accentuate interstitial markings. There is subtle left lung base airspace disease. Cardiomediastinal contours a re within normal limits. Bony thorax is intact. CONCLUSION: 1. ETT in good position. NGT in the stomach. 2. Low lung volumes with minimal left lung base atelectasis. Electronically signed by: Tobi Story MD 06/08/2018 10:51 AM EDT
[2018-06-08] MEDS ORDERED: Gadobutrol PF 10 MMOL/10 ML Vial (for RAD) IV.SIG ONE (11:54)
--- NOTE | 2018-06-08 12:13 | MR ---
EXAM DATE: 06/08/2018 12:03 PM EDT AGE/SEX: 58 years / Male INDICATIONS: Abscess. CLINICAL DATA: This is the patient's initial encounter. Patient reports that signs and symptoms have been present for 2 days and indicates a pain score of Nonresponsive. MEDICAL/SURGICAL HISTORY: Diabetes mellitus type II. Hypertension. Gastroesophageal reflux di sease. Fusion, lumbar. Tonsillectomy. Right hip replacement. COMPARISON: [facility], MR CERVICAL SPINE W/O CONTRAST, 10/23/2017. . TECHNIQUE: Multiplanar, multisequence MRI examination of the cervical spine was performed without an d with 9 ml Gadavist (gadobutrol) contrast as a single exam dose. FINDINGS: There is an NG tube in place. There does appear to be increased signal seen in the posterior nasophar ynx, oropharynx and hypopharynx and prevertebral regions. A focal fluid collection is not seen. Vertebrae: Normal vertebral body height. Homogeneous marrow signal. Alignment: Normal. Cord: Normal configuration and signal. Post Fossa: The cerebellar tonsils are normal in position. Post Contrast: No abnormal areas of enhancement are seen. C2-C3: The thecal sac has a normal configuration. There is no evidence of disc herniation or spinal canal stenosis. The neural foramina are patent bilaterally. There is left facet hypertrophy. C3-C4: The thecal sac has a normal configuration. There is no evidence of disc herniation or spinal canal stenosis. The neural foramina are patent bilaterally. There is bilateral facet hypertrophy. C4-C5: The thecal sac has a normal configuration. There is no evidence of disc herniation or spinal canal stenosis. The neural foramina are patent bilaterally. There is facet hypertrophy being worse on the left. C5-C6: The disc demonstrates decreased height. There is mild diffuse disc bulge and osteophytic ridg ing. There is mild narrowing of the thecal sac. There is a thin layer CSF seen around the cord. There is uncovertebral and facet hypertrophy leading to bilateral neural foraminal narrowing.. C6-C7: There is minimal disc bulge without significant stenosis. There is uncovertebral hypertrophy. There is narrowing of the neural foramina bilaterally. C7-T1: No epidural impressions seen. CONCLUSION: 1. Degenerative change at the C5-C6 and C6-C7 levels as described above. 2. Increased signal suggesting edema in the posterior soft tissues of the nasopharynx, oropharynx an d hypopharynx without focal fluid collection. Electronically signed by: Gerardo Smith MD 06/08/2018 12:12 PM EDT
--- NOTE | 2018-06-08 12:13 | MR ---
EXAM DATE: 06/08/2018 11:58 AM EDT AGE/SEX: 58 years / Male INDICATIONS: Altered mental status. CLINICAL DATA: This is the patient's initial encounter. Patient reports that signs and symptoms have been present for 2 days and indicates a pain score of Nonresponsive. MEDICAL/SURGICAL HISTORY: Hypertension. Diabetes mellitus type II. Fusion, lumbar. Tonsillect josselin. Right hip replacement. COMPARISON: [facility] [place], CT HEAD W/O CONTRAST, 06/06/2018. . TECHNIQUE: Multiplanar, multisequence examination of the brain was performed without and with 9 ml Ga davist (gadobutrol) contrast as a single exam dose. FINDINGS: There is mild thickening and enhancement of the dura, more pronounced in the left frontotemporal nehemias on and the falx than elsewhere. There is no nodular character to the pleural thickening and no signif icant abnormal leptomeningeal contrast enhancement is identified. The brain is elsewhere symmetric and unremarkable. No evidence of parenchymal mass or hemorrhage. Not olga to suggest acute infarction. The brainstem and posterior fossa structures are normal. Ventricles are symmetric and normal. The extracranial structures are benign in intact. CONCLUSION: 1. Mild degree of dural thickening and enhancement consistent with pachymeningitis, nonspecific. 2. No acute or focal parenchymal brain abnormalities. Electronically signed by: Gerardo Guerrero MD 06/08/2018 12:12 PM EDT
--- NOTE | 2018-06-08 12:15 | MR ---
EXAM DATE: 06/08/2018 12:04 PM EDT AGE/SEX: 58 years / Male INDICATIONS: Abscess. CLINICAL DATA: This is the patient's initial encounter. Patient reports that signs and symptoms have been present for 2 days and indicates a pain score of Nonresponsive. MEDICAL/SURGICAL HISTORY: Diabetes mellitus type II. Hypertension. Gastroesophageal reflux di sease. Fusion, lumbar. Tonsillectomy. Right hip replacement. COMPARISON: No prior exams available for comparison. TECHNIQUE: Multiplanar, multisequence MRI of the thoracic spine was performed without and with 9 ml Gadavist (gadobutrol) contrast as a single exam dose. FINDINGS: There are small bilateral pleural effusions. Vertebrae: Normal vertebral body height. Homogeneous marrow signal. Alignment: Normal. Cord: Normal position and configuration. Post Contrast: No abnormal areas of enhancement are seen in the cord, dural or paraspinal regions. T1-T2: The thecal sac has a normal diameter. No evidence of disc bulge or protrusion. T2-T3: The thecal sac has a normal diameter. No evidence of disc bulge or protrusion. T3-T4: The thecal sac has a normal diameter. No evidence of disc bulge or protrusion. T4-T5: The thecal sac has a normal diameter. No evidence of disc bulge or protrusion. T5-T6: The thecal sac has a normal diameter. No evidence of disc bulge or protrusion. T6-T7: The thecal sac has a normal diameter. No evidence of disc bulge or protrusion. T7-T8: The thecal sac has a normal diameter. No evidence of disc bulge or protrusion. T8-T9: The thecal sac has a normal diameter. No evidence of disc bulge or protrusion. T9-T10: The thecal sac has a normal diameter. No evidence of disc bulge or protrusion. T10-T11: The thecal sac has a normal diameter. No evidence of disc bulge or protrusion. T11-T12: The thecal sac has a normal diameter. No evidence of disc bulge or protrusion. T12-L1: The thecal sac has a normal diameter. No evidence of disc bulge or protrusion. CONCLUSION: Negative thoracic spine MRI examination. Electronically signed by: Gerardo Smith MD 06/08/2018 12:14 PM EDT
[2018-06-08] MEDS: Acetaminophen 325 MG Tablet PO PRN (13:30)
[2018-06-08 13:42] LABS: ABG Base Excess -8.5 mmol/L (-2-2); ABG PCO2 23 mmHg (38-42); ABG PO2 483 mmHg (61-120)
[2018-06-08] MEDS: Multivitamin Inj 10 ML, Thiamine Inj 100 MG, Folic Acid Inj 1 MG in Sodium Chlor 0.9% I... IV.SIG SCH (13:51)
[2018-06-08] MEDS: Enoxaparin Inj 30 MG/0.3 ML Syringe SQ SCH (13:56)
[2018-06-08] MEDS: Pantoprazole Inj 40 MG Vial IV.PUSH SCH (13:56)
[2018-06-08 14:49] LABS: Hemoglobin A1c 9.8 % (4.3-6.0)
--- NOTE | 2018-06-08 15:09 | MR ---
EXAM DATE: 06/08/2018 12:07 PM EDT AGE/SEX: 58 years / Male INDICATIONS: Abscess. CLINICAL DATA: This is the patient's initial encounter. Patient reports that signs and symptoms have been present for 2 days and indicates a pain score of Nonresponsive. MEDICAL/SURGICAL HISTORY: Hypertension. Diabetes mellitus type II. Gastroesophageal reflux di sease. Fusion, lumbar. Tonsillectomy. Right hip replacement. COMPARISON: [facility], MR LUMBAR SPINE W/O CONTRAST, 03/30/2018. . TECHNIQUE: Multiplanar, multisequence MRI examination of the lumbar spine was performed without and with 9 ml Gadavist (gadobutrol) contrast as a single exam dose. FINDINGS: There has been interval left-sided L4-5 laminotomy with discectomy.. There is serpiginous fluid signa l tracking from the left epidural space through the laminotomy site and out nearly to the skin surfac e along the operative approach. The surrounding soft tissues are notable for moderate edema signal an d enhancement. There is moderate hemicircumferential epidural enhancement. There is no significant ca nal compromise. The remainder of the lumbar spine is stable and nonacute in appearance. CONCLUSION: Minimal left sided epidural fluid and minimal fluid along the operative tract in the left paramedian back at the L4-5 level with moderate surrounding soft tissue edema and enhancement. Electronically signed by: Gerardo Guerrero MD 06/08/2018 3:08 PM EDT
[2018-06-08 17:09] LABS: Calcium 8.2 mg/dL (8.5-10.1); Carbon Dioxide 17.2 meq/L (21.0-32.0)
[2018-06-08 17:11] LABS: Beta Hydroxybutyric Acid 0.25 mmol/L (0.00-0.39); Phosphorus 0.5 mg/dL (2.5-4.9)
--- NOTE | 2018-06-08 17:11 | P.CONNS ---
History of Present Illness Service: Neurosurgery Consult date: 06/08/18 Reason for Consult: Possible wound infection Primary Care Provider: Nathalia Cordon MD Family Provider: Nathalia Cordon MD Chief Complaint: possible wound infection History of Present Illness: 58 yo M s/p Lt L4-[address] Huff admitted to MICU for DKA and sepsis. Patient was last seen by the neurosurgery service on 06/05 and noted to not have any issues with good healing wound. Patient then presented confused to Ed, noted to have glucose of 500 and septic. Patient currently intubated 2/ 2 respiratory failure and on pressors. at bedside does not that patient without any drainage from incision and has been healing well PMFSH - History History Provided By: Patient - Medical History Medical History: Medical History (Last Reviewed 06/08/18 @ 08:54 by Margaret Ramirez, [employer]) Back pain Diabetes GERD (gastroesophageal reflux disease) Hypertension Tear of biceps muscle - Surgical History Surgical History: Surgical History (Last Reviewed 06/07/18 @ 11:46 by Michelle Haro) Previous back surgery History of tonsillectomy and adenoidectomy History of total replacement of right hip Hx of cataract surgery - Tobacco History Second Hand Smoke Exposure: No Tobacco Use In Past 30 Days: No Smoking Status: Former smoker - Alcohol History How Often Do You Have a Drink Containing Alcohol: 4 or more times a week - Substance Use History Substance History: Active Abuse - Travel History Recent Travel in the [place] Within the Last 8 Weeks: No Recent Travel Out of the Country Within the Last 8 Weeks: No - Immunization History Tetanus Immunization: Unsure Hx Influenza Vaccine This Season: No Medications and Allergies Active Medications: Active Medications Acetaminophen (Tylenol) 650 mg PO Q6H PRN PRN Reason: PAIN 1-10 AND/OR FEVER >101F Al Hydroxide/Mg Hydroxide (Milk Of Magnesia Liq) 30 ml PO Q12H PRN PRN Reason: Mild Constipation Albuterol (Albuterol Neb (Prn)) 2.5 mg NEB Q2HR NEB PRN PRN Reason: DYSPNEA Albuterol (Duoneb Neb ([facility])) 1 ampul NEB Q6HR WHILE AWAKE NEB [facility] Last Admin: 06/08/18 13:23 Dose: 1 ampul Amlodipine Besylate (Norvasc) 10 mg PO DAILY [facility] Last Admin: 06/08/18 08:59 Dose: Not Given Bisacodyl (Dulcolax Supp) 10 mg RECTAL DAILY PRN PRN Reason: SEVERE CONSITIPATION Chlorhexidine Gluconate (Chlorhexidine 2% Cloth) 3 pack TOPICAL DAILY@0400 PRN PRN Reason: Extra cloth needed Stop: 06/12/18 03:59 Chlorhexidine Gluconate (Peridex 0.12% Oral Kit) 15 ml OROPHARYNG BID@0800, 2000 [facility] Enoxaparin Sodium (Lovenox Inj) 30 mg SQ Q24H [facility] Last Admin: 06/08/18 13:56 Dose: 30 mg Flumazenil (Romazecon Inj) 0.2 mg IV.PUSH Q1M PRN PRN Reason: OVERSEDATION Haloperidol Lactate (Haldol Inj) 1 mg IV.PUSH Q15M PRN PRN Reason: for severe agitation Potassium Chloride (Kcl 20 Meq Premix Inj) 20 meq in 100 mls @ 100 mls/hr IV.SIG Q1H PRN PRN Reason: for K+ 4.5 to 5 Potassium Chloride (Kcl 40 Meq Premix Inj) 40 meq in 100 mls @ 100 mls/hr IV.SIG Q1H PRN PRN Reason: for Initial K+ ONLY < 3.5 Potassium Chloride (Kcl 20 Meq Premix Inj) 20 meq in 100 mls @ 50 mls/hr IV.SIG Q2H PRN PRN Reason: for Subsequent K+ < 3.5 Last Admin: 06/08/18 14:00 Dose: 50 mls/hr Potassium Chloride (Kcl 40 Meq Premix Inj) 40 meq in 100 mls @ 50 mls/hr IV.SIG Q2H PRN PRN Reason: for Subsequent K+ < 3.5 Sodium Phosphate 15 mmol/ (Sodium Chloride) 105 mls @ 25 mls/hr IV.SIG UNSCH PRN PRN Reason: for Phosphate Level < 1.0 Last Admin: 06/08/18 13:53 Dose: 25 mls/hr Potassium Chloride (Kcl 20 Meq Premix Inj) 20 meq in 100 mls @ 50 mls/hr IV.SIG Q2H PRN PRN Reason: for K+ 3.5 to 4.4 Last Admin: 06/07/18 20:23 Dose: 50 mls/hr Sodium Chloride (Ns Inj) 1,000 mls @ 250 mls/hr IV.CONT .Q4H [facility] Last Admin: 06/07/18 20:23 Dose: 250 mls/hr Insulin Human Regular 100 unit (/ Sodium Chloride) 100 mls @ 10 mls/hr IV.CONT TITRATE PRN; Protocol PRN Reason: See protocol Last Admin: 06/08/18 01:03 Dose: 10.5 units/hr, 10.5 mls/hr Multivitamins 10 ml/ Thiamine HCl 100 mg/ Folic Acid 1 mg/Sodium Chloride 511.2 mls @ 125 mls/hr IV.SIG Q24H [facility] Stop: 06/09/18 15:06 Last Admin: 06/08/18 13:51 Dose: 125 mls/hr Dextrose/Sodium Chloride (D5w/Normal Saline Inj) 1,000 mls @ 200 mls/hr IV.CONT .Q5H [facility] Last Admin: 06/08/18 05:11 Dose: 200 mls/hr Nicardipine HCl 25 mg/ Sodium (Chloride) 250 mls @ 50 mls/hr IV.CONT TITRATE PRN; Protocol PRN Reason: Per Protocol Last Titration: 06/08/18 09:04 Dose: 10 mg/hr, 100 mls/hr Cefepime HCl 2,000 mg/ Sodium (Chloride) 100 mls @ 200 mls/hr IV.SIG Q8H [facility] Last Admin: 06/08/18 17:01 Dose: 200 mls/hr Metronidazole/Sodium Chloride (Flagyl 500 Mg Inj) 100 mls @ 100 mls/hr IV.SIG Q6H [facility] Last Admin: 06/08/18 17:00 Dose: 100 mls/hr Midazolam HCl (Versed Inj) 50 mg in 50 mls @ 2 mls/hr IV.CONT TITRATE PRN; Protocol PRN Reason: Per Protocol Last Admin: 06/08/18 14:04 Dose: 2 mg/hr, 2 mls/hr Sodium Chloride (Ns Inj) 1,000 mls @ 100 mls/hr IV.CONT .Q10H [facility] Labetalol HCl (Trandate Inj) 10 mg IV.PUSH Q1H PRN PRN Reason: Sbp>160, Dbp>90, Hr>65 Last Admin: 06/08/18 06:53 Dose: 10 mg Lactulose (Lactulose Liq) 30 ml PO DAILY PRN PRN Reason: SEVERE CONSITIPATION Lorazepam (Ativan) 1 mg PO Q4H PRN PRN Reason: for CIWA 8-10 Lorazepam (Ativan) 2 mg PO Q2H PRN PRN Reason: for CIWA 11-14 Last Admin: 06/07/18 12:45 Dose: 2 mg Lorazepam (Ativan Inj) 2 mg IV.PUSH Q2H PRN PRN Reason: for CIWA 11-14 Last Admin: 06/08/18 13:57 Dose: 2 mg Lorazepam (Ativan Inj) 2 mg IV.PUSH Q1H PRN PRN Reason: for CIWA 15-20 Last Admin: 06/08/18 01:35 Dose: 2 mg Lorazepam (Ativan Inj) 2 mg IV.PUSH Q15M PRN PRN Reason: for CIWA > 20 Lorazepam (Ativan Inj) 1 mg IV.PUSH Q4H PRN PRN Reason: for CIWA 8-10 Last Admin: 06/07/18 12:37 Dose: 1 mg Nitroglycerin (Nitro-Bid 2% Oint) 2 inch TOPICAL Q6HR PRN PRN Reason: SBP>160, DBP>90 Ondansetron HCl (Zofran Inj) 4 mg IV.PUSH Q6H PRN PRN Reason: NAUSEA OR VOMITING Pantoprazole Sodium (Protonix Inj) 40 mg IV.PUSH DAILY [facility] Last Admin: 06/08/18 13:56 Dose: 40 mg Senna/Docusate Sodium (Tania-Colace) 1 tab PO BID [facility] Last Admin: 06/08/18 08:59 Dose: Not Given Sennosides (Senokot) 17.2 mg PO Q12H PRN PRN Reason: Moderate Constipation Sertraline HCl (Zoloft) 200 mg PO DAILY [facility] Last Admin: 06/08/18 08:59 Dose: Not Given Sodium Bicarbonate (Sodium Bicarbonate 8.4% Inj) 100 meq IV.PUSH UNSCH PRN PRN Reason: for pH less than 6.9 Sodium Bicarbonate (Sodium Bicarbonate 8.4% Inj) 50 meq IV.PUSH UNSCH PRN PRN Reason: for pH 6.9 to 7.0 Sodium Chloride (Ns Flush) 2 ml IV.FLUSH BID [facility] Last Admin: 06/08/18 13:57 Dose: 2 ml Sodium Chloride (Ns Flush) 2 ml IV.FLUSH PRN PRN PRN Reason: FLUSH AFTER USING IV ACCESS Allergies Allergy/AdvReac Type Severity Reaction Status Date / Time metformin Allergy Severe Abdominal Verified 05/19/18 07:07 Pain prednisone Allergy Severe Rash Verified 05/19/18 07:07 diclofenac Allergy Intermediate Swelling Verified 05/19/18 07:07 lisinopril Allergy Mild DRY COUGH Verified 05/19/18 07:07 Home Medications Medication Instructions Recorded Confirmed Type amlodipine 10 mg PO DAILY 05/18/18 05/19/18 History empagliflozin [Jardiance] 25 mg PO DAILY 05/18/18 05/19/18 History insulin aspart U-100 [Novolog 7 unit SUB-Q TID 05/18/18 05/19/18 History Flexpen U-100 Insulin] insulin degludec [Tresiba 36 unit SUB-Q DAILY 05/18/18 05/19/18 History FlexTouch U-100] linagliptin [Tradjenta] 5 mg PO DAILY 05/18/18 05/19/18 History omeprazole 20 mg PO DAILY 05/18/18 05/19/18 History sertraline 200 mg PO DAILY 05/18/18 05/19/18 History valsartan 80 mg PO DAILY 05/18/18 05/19/18 History Exam Vital signs: Vital Signs 06/07/18 18:00 06/07/18 19:00 06/07/18 20:00 Temperature 99.7 F H 100 F H 100 F H Pulse Rate 103 H 93 H 93 H Respiratory Rate 28 H 28 H 28 H Blood Pressure 194/89 H 174/79 H 174/79 H Pulse Oximetry 95 97 97 06/07/18 20:06 06/07/18 22:00 06/08/18 00:00 Temperature 100.5 F H Pulse Rate 93 H 97 H 90 Respiratory Rate 24 28 H Blood Pressure 174/77 H Pulse Oximetry 96 96 06/08/18 02:00 06/08/18 04:00 06/08/18 06:00 Temperature 103.2 F H 101.9 F H Pulse Rate 89 99 H 109 H Respiratory Rate 25 H Blood Pressure 180/78 H Pulse Oximetry 94 L 06/08/18 08:00 06/08/18 08:08 06/08/18 09:00 Temperature 101 F H Pulse Rate 103 H 103 H 107 H Respiratory Rate 30 H Blood Pressure 159/74 H Pulse Oximetry 95 06/08/18 12:37 06/08/18 13:21 06/08/18 16:04 Temperature Pulse Rate 104 H Respiratory Rate 22 23 Blood Pressure Pulse Oximetry 100 100 99 Intake & Output 06/07/18 06/08/18 06/08/18 18:59 06:59 18:59 Intake Total 2716.2 / 2716.2 1600 / 1600 455 / 455 Balance 2716.2 / 2716.2 1600 / 1600 455 / 455 Intake: IV 2716.2 / 2716.2 1600 / 1600 455 / 455 D5W/Normal Saline Inj 1,000 ML 2000 / 2000 1000 / 1000 @ 200 mls/hr IV.CONT .Q5H [facility] Rx#:[id number] NovoLIN R (IV Infusion) 100 100 / 100 UNIT In NS Inj 99 ML @ 10 UNITS /HR 10 mls/hr IV.CONT TITRATE PRN Rx#:[id number] Versed Inj 50 mg In 50 ml @ 2 50 / 50 MG/HR 2 mls/hr IV.CONT TITRATE PRN Rx#:[id number] Cardene Inj 25 MG In NS Inj 240 500 / 500 ML @ 5 MG/HR 50 mls/hr IV.CONT TITRATE PRN Rx#:[id number] Maxipime Inj 2,000 MG In NS Inj 100 / 100 100 ML @ 200 mls/hr IV.SIG Q8H [facility] Rx#:[id number] MVI-12 Inj 10 ML Thiamine Inj 511.2 / 511.2 100 MG Folvite Inj 1 MG In NS Inj 500 ML @ 125 mls/hr IV.SIG Q24H [facility] Rx#:[id number] KCl 20 mEq Premix Inj 20 meq In 100 / 100 200 / 200 100 ml @ 50 mls/hr IV.SIG Q2H PRN Rx#:[id number] Sodium Phosphate Inj 15 MMOL In 105 / 105 105 / 105 NS Inj 100 ML @ 25 mls/hr IV. SIG UNSCH PRN Rx#:[id number] Other: Date of Last Bowel Movement 06/08/18 06/08/18 Narrative: E2 PERRL intubated does not follow commands localizes in the UEs w/ds in the lower extremities appears to have full, symmetrical strength Incision: without erythema or discharge. closed, area of granulation tissue over wound Results - Laboratory Findings CBC and BMP: 06/08/18 03:50 06/08/18 03:50 Abnormal lab findings: Abnormal Labs 06/06/18 06/06/18 06/06/18 19:02 19:30 19:30 WBC 13.7 H RBC MCV 105.4 H MCHC 31.2 L Plt Count Neut % (Auto) 93.1 H Lymph % (Auto) 2.4 L Neut # (Auto) 12.7 H Lymph # (Auto) 0.3 L Seg Neuts % (Manual) 85 H Lymphocytes % (Manual) 1 L Myelocytes % (Man) 2 H Abs Neuts (Manual) 12.9 H Toxic Vacuolation Present H Platelet Estimate APTT 45.8 H ABG pH ABG pCO2 ABG pO2 ABG HCO3 ABG O2 Content ABG Base Excess VBG pH 6.91 L* VBG pCO2 18 L* VBG pO2 46 H VBG HCO3 3 L* VBG Base Excess -26.7 L Sodium Potassium Chloride Carbon Dioxide Anion Gap BUN Creatinine Estimated GFR POC Glucose Random Glucose Hemoglobin A1c Calcium Phosphorus Magnesium AST Alkaline Phosphatase Total Creatine Kinase CK-MB (CK-2) Troponin I Total Protein Albumin Triglycerides Cholesterol LDL Cholesterol, Calc Lipase Beta-Hydroxybutyric Acd Urine Clarity Urine Protein Urine Occult Blood Urine WBC Urine WBC Clumps Amorphous Sediment Urine Bacteria Urine Mucus 06/06/18 06/06/18 06/06/18 19:30 19:35 20:51 WBC RBC MCV MCHC Plt Count Neut % (Auto) Lymph % (Auto) Neut # (Auto) Lymph # (Auto) Seg Neuts % (Manual) Lymphocytes % (Manual) Myelocytes % (Man) Abs Neuts (Manual) Toxic Vacuolation Platelet Estimate APTT ABG pH ABG pCO2 ABG pO2 ABG HCO3 ABG O2 Content ABG Base Excess VBG pH VBG pCO2 VBG pO2 VBG HCO3 VBG Base Excess Sodium 117 L* Potassium 6.0 H Chloride 83 L Carbon Dioxide Less than 5.0 L Anion Gap 29 H BUN 65 H Creatinine 2.26 H Estimated GFR 30 L POC Glucose 503 H* 452 H* Random Glucose 526 H* Hemoglobin A1c Calcium Phosphorus Magnesium AST 48 H Alkaline Phosphatase 197 H Total Creatine Kinase 655 H CK-MB (CK-2) 22.0 H Troponin I Less than 0.02 L Total Protein Albumin Triglycerides Cholesterol LDL Cholesterol, Calc Lipase Beta-Hydroxybutyric Acd 12.93 H Urine Clarity Urine Protein Urine Occult Blood Urine WBC Urine WBC Clumps Amorphous Sediment Urine Bacteria Urine Mucus 06/06/18 06/06/18 06/06/18 21:32 22:30 22:34 WBC RBC MCV MCHC Plt Count Neut % (Auto) Lymph % (Auto) Neut # (Auto) Lymph # (Auto) Seg Neuts % (Manual) Lymphocytes % (Manual) Myelocytes % (Man) Abs Neuts (Manual) Toxic Vacuolation Platelet Estimate APTT ABG pH ABG pCO2 ABG pO2 ABG HCO3 ABG O2 Content ABG Base Excess VBG pH VBG pCO2 VBG pO2 VBG HCO3 VBG Base Excess Sodium 125 L Potassium Chloride 94 L D Carbon Dioxide 6.4 L Anion Gap 25 H BUN 62 H Creatinine 1.87 H Estimated GFR 37 L POC Glucose 455 H* 446 H Random Glucose 429 H Hemoglobin A1c Calcium 7.6 L D Phosphorus Magnesium AST Alkaline Phosphatase Total Creatine Kinase CK-MB (CK-2) Troponin I Total Protein Albumin Triglycerides Cholesterol LDL Cholesterol, Calc Lipase Beta-Hydroxybutyric Acd Urine Clarity Urine Protein Urine Occult Blood Urine WBC Urine WBC Clumps Amorphous Sediment Urine Bacteria Urine Mucus 06/06/18 06/06/18 06/07/18 23:41 23:50 00:36 WBC RBC MCV MCHC Plt Count Neut % (Auto) Lymph % (Auto) Neut # (Auto) Lymph # (Auto) Seg Neuts % (Manual) Lymphocytes % (Manual) Myelocytes % (Man) Abs Neuts (Manual) Toxic Vacuolation Platelet Estimate APTT ABG pH ABG pCO2 ABG pO2 ABG HCO3 ABG O2 Content ABG Base Excess VBG pH VBG pCO2 VBG pO2 VBG HCO3 VBG Base Excess Sodium Potassium Chloride Carbon Dioxide Anion Gap BUN Creatinine Estimated GFR POC Glucose 394 H 348 H Random Glucose Hemoglobin A1c Calcium Phosphorus Magnesium AST Alkaline Phosphatase Total Creatine Kinase CK-MB (CK-2) Troponin I Total Protein Albumin Triglycerides Cholesterol LDL Cholesterol, Calc Lipase Beta-Hydroxybutyric Acd Urine Clarity Turbid H Urine Protein 100 H Urine Occult Blood Large H Urine WBC 13 H Urine WBC Clumps Few H Amorphous Sediment Occasional H Urine Bacteria Rare H Urine Mucus Few H 06/07/18 06/07/18 06/07/18 01:26 02:11 03:33 WBC RBC MCV MCHC Plt Count Neut % (Auto) Lymph % (Auto) Neut # (Auto) Lymph # (Auto) Seg Neuts % (Manual) Lymphocytes % (Manual) Myelocytes % (Man) Abs Neuts (Manual) Toxic Vacuolation Platelet Estimate APTT ABG pH ABG pCO2 ABG pO2 ABG HCO3 ABG O2 Content ABG Base Excess VBG pH VBG pCO2 VBG pO2 VBG HCO3 VBG Base Excess Sodium Potassium Chloride Carbon Dioxide Anion Gap BUN Creatinine Estimated GFR POC Glucose 252 H 182 H 164 H Random Glucose Hemoglobin A1c Calcium Phosphorus Magnesium AST Alkaline Phosphatase Total Creatine Kinase CK-MB (CK-2) Troponin I Total Protein Albumin Triglycerides Cholesterol LDL Cholesterol, Calc Lipase Beta-Hydroxybutyric Acd Urine Clarity Urine Protein Urine Occult Blood Urine WBC Urine WBC Clumps Amorphous Sediment Urine Bacteria Urine Mucus 06/07/18 06/07/18 06/07/18 04:20 04:44 05:42 WBC RBC MCV MCHC Plt Count Neut % (Auto) Lymph % (Auto) Neut # (Auto) Lymph # (Auto) Seg Neuts % (Manual) Lymphocytes % (Manual) Myelocytes % (Man) Abs Neuts (Manual) Toxic Vacuolation Platelet Estimate APTT ABG pH ABG pCO2 ABG pO2 ABG HCO3 ABG O2 Content ABG Base Excess VBG pH VBG pCO2 VBG pO2 VBG HCO3 VBG Base Excess Sodium Potassium Chloride Carbon Dioxide Anion Gap BUN Creatinine Estimated GFR POC Glucose 142 H 140 H 147 H Random Glucose Hemoglobin A1c Calcium Phosphorus Magnesium AST Alkaline Phosphatase Total Creatine Kinase CK-MB (CK-2) Troponin I Total Protein Albumin Triglycerides Cholesterol LDL Cholesterol, Calc Lipase Beta-Hydroxybutyric Acd Urine Clarity Urine Protein Urine Occult Blood Urine WBC Urine WBC Clumps Amorphous Sediment Urine Bacteria Urine Mucus 06/07/18 06/07/18 06/07/18 06:08 06:43 06:53 WBC RBC MCV MCHC Plt Count Neut % (Auto) Lymph % (Auto) Neut # (Auto) Lymph # (Auto) Seg Neuts % (Manual) Lymphocytes % (Manual) Myelocytes % (Man) Abs Neuts (Manual) Toxic Vacuolation Platelet Estimate APTT ABG pH ABG pCO2 ABG pO2 ABG HCO3 ABG O2 Content ABG Base Excess VBG pH VBG pCO2 VBG pO2 VBG HCO3 VBG Base Excess Sodium 133 L Potassium Chloride Carbon Dioxide 8.6 L Anion Gap 19 H BUN 57 H Creatinine 1.55 H Estimated GFR 46 L POC Glucose 177 H 181 H Random Glucose 186 H D Hemoglobin A1c Calcium 8.1 L Phosphorus 0.8 L Magnesium AST Alkaline Phosphatase Total Creatine Kinase CK-MB (CK-2) Troponin I Total Protein Albumin Triglycerides Cholesterol LDL Cholesterol, Calc Lipase Beta-Hydroxybutyric Acd 7.52 H D Urine Clarity Urine Protein Urine Occult Blood Urine WBC Urine WBC Clumps Amorphous Sediment Urine Bacteria Urine Mucus 06/07/18 06/07/18 06/07/18 07:58 08:47 09:31 WBC RBC MCV MCHC Plt Count Neut % (Auto) Lymph % (Auto) Neut # (Auto) Lymph # (Auto) Seg Neuts % (Manual) Lymphocytes % (Manual) Myelocytes % (Man) Abs Neuts (Manual) Toxic Vacuolation Platelet Estimate APTT ABG pH ABG pCO2 ABG pO2 ABG HCO3 ABG O2 Content ABG Base Excess VBG pH VBG pCO2 VBG pO2 VBG HCO3 VBG Base Excess Sodium Potassium Chloride Carbon Dioxide Anion Gap BUN Creatinine Estimated GFR POC Glucose 243 H 148 H 118 H Random Glucose Hemoglobin A1c Calcium Phosphorus Magnesium AST Alkaline Phosphatase Total Creatine Kinase CK-MB (CK-2) Troponin I Total Protein Albumin Triglycerides Cholesterol LDL Cholesterol, Calc Lipase Beta-Hydroxybutyric Acd Urine Clarity Urine Protein Urine Occult Blood Urine WBC Urine WBC Clumps Amorphous Sediment Urine Bacteria Urine Mucus 06/07/18 06/07/18 06/07/18 10:00 10:34 10:59 WBC RBC MCV MCHC Plt Count Neut % (Auto) Lymph % (Auto) Neut # (Auto) Lymph # (Auto) Seg Neuts % (Manual) Lymphocytes % (Manual) Myelocytes % (Man) Abs Neuts (Manual) Toxic Vacuolation Platelet Estimate APTT ABG pH ABG pCO2 ABG pO2 ABG HCO3 ABG O2 Content ABG Base Excess VBG pH VBG pCO2 VBG pO2 VBG HCO3 VBG Base Excess Sodium Potassium Chloride Carbon Dioxide Anion Gap BUN Creatinine Estimated GFR POC Glucose 113 H 145 H 165 H Random Glucose Hemoglobin A1c Calcium Phosphorus Magnesium AST Alkaline Phosphatase Total Creatine Kinase CK-MB (CK-2) Troponin I Total Protein Albumin Triglycerides Cholesterol LDL Cholesterol, Calc Lipase Beta-Hydroxybutyric Acd Urine Clarity Urine Protein Urine Occult Blood Urine WBC Urine WBC Clumps Amorphous Sediment Urine Bacteria Urine Mucus 06/07/18 06/07/18 06/07/18 12:05 12:06 13:16 WBC RBC 3.95 L MCV MCHC Plt Count 126 L D Neut % (Auto) Lymph % (Auto) Neut # (Auto) Lymph # (Auto) Seg Neuts % (Manual) 90 H Lymphocytes % (Manual) 2 L Myelocytes % (Man) Abs Neuts (Manual) 7.9 H Toxic Vacuolation Platelet Estimate Low L APTT ABG pH ABG pCO2 ABG pO2 ABG HCO3 ABG O2 Content ABG Base Excess VBG pH VBG pCO2 VBG pO2 VBG HCO3 VBG Base Excess Sodium Potassium Chloride 110 H Carbon Dioxide 12.6 L Anion Gap 16 H BUN 46 H Creatinine Estimated GFR 56 L POC Glucose 163 H Random Glucose 142 H Hemoglobin A1c Calcium 8.1 L Phosphorus Magnesium AST 47 H Alkaline Phosphatase 132 H Total Creatine Kinase CK-MB (CK-2) Troponin I Total Protein 5.9 L D Albumin 2.7 L D Triglycerides 202 H Cholesterol 239 H LDL Cholesterol, Calc 158 H Lipase 550 H Beta-Hydroxybutyric Acd 3.51 H D Urine Clarity Urine Protein Urine Occult Blood Urine WBC Urine WBC Clumps Amorphous Sediment Urine Bacteria Urine Mucus 06/07/18 06/07/18 06/07/18 13:16 13:50 14:34 WBC RBC MCV MCHC Plt Count Neut % (Auto) Lymph % (Auto) Neut # (Auto) Lymph # (Auto) Seg Neuts % (Manual) Lymphocytes % (Manual) Myelocytes % (Man) Abs Neuts (Manual) Toxic Vacuolation Platelet Estimate APTT ABG pH ABG pCO2 ABG pO2 ABG HCO3 ABG O2 Content ABG Base Excess VBG pH VBG pCO2 VBG pO2 VBG HCO3 VBG Base Excess Sodium Potassium Chloride Carbon Dioxide Anion Gap BUN Creatinine Estimated GFR POC Glucose 142 H 139 H Random Glucose Hemoglobin A1c 9.8 H Calcium Phosphorus Magnesium AST Alkaline Phosphatase Total Creatine Kinase CK-MB (CK-2) Troponin I Total Protein Albumin Triglycerides Cholesterol LDL Cholesterol, Calc Lipase Beta-Hydroxybutyric Acd Urine Clarity Urine Protein Urine Occult Blood Urine WBC Urine WBC Clumps Amorphous Sediment Urine Bacteria Urine Mucus 06/07/18 06/07/18 06/07/18 15:00 15:35 16:00 WBC RBC MCV MCHC Plt Count Neut % (Auto) Lymph % (Auto) Neut # (Auto) Lymph # (Auto) Seg Neuts % (Manual) Lymphocytes % (Manual) Myelocytes % (Man) Abs Neuts (Manual) Toxic Vacuolation Platelet Estimate APTT ABG pH ABG pCO2 ABG pO2 ABG HCO3 ABG O2 Content ABG Base Excess VBG pH VBG pCO2 VBG pO2 VBG HCO3 VBG Base Excess Sodium Potassium Chloride 111 H Carbon Dioxide 12.8 L Anion Gap BUN 44 H Creatinine Estimated GFR 59 L POC Glucose 164 H 194 H Random Glucose 193 H Hemoglobin A1c Calcium 7.9 L Phosphorus 1.5 L Magnesium 2.6 H AST Alkaline Phosphatase Total Creatine Kinase CK-MB (CK-2) Troponin I Total Protein Albumin Triglycerides Cholesterol LDL Cholesterol, Calc Lipase Beta-Hydroxybutyric Acd Urine Clarity Urine Protein Urine Occult Blood Urine WBC Urine WBC Clumps Amorphous Sediment Urine Bacteria Urine Mucus 06/07/18 06/07/18 06/07/18 17:05 18:09 19:13 WBC RBC MCV MCHC Plt Count Neut % (Auto) Lymph % (Auto) Neut # (Auto) Lymph # (Auto) Seg Neuts % (Manual) Lymphocytes % (Manual) Myelocytes % (Man) Abs Neuts (Manual) Toxic Vacuolation Platelet Estimate APTT ABG pH ABG pCO2 ABG pO2 ABG HCO3 ABG O2 Content ABG Base Excess VBG pH VBG pCO2 VBG pO2 VBG HCO3 VBG Base Excess Sodium Potassium Chloride Carbon Dioxide Anion Gap BUN Creatinine Estimated GFR POC Glucose 248 H 249 H 261 H Random Glucose Hemoglobin A1c Calcium Phosphorus Magnesium AST Alkaline Phosphatase Total Creatine Kinase CK-MB (CK-2) Troponin I Total Protein Albumin Triglycerides Cholesterol LDL Cholesterol, Calc Lipase Beta-Hydroxybutyric Acd Urine Clarity Urine Protein Urine Occult Blood Urine WBC Urine WBC Clumps Amorphous Sediment Urine Bacteria Urine Mucus 06/07/18 06/07/18 06/07/18 20:17 21:05 22:20 WBC RBC MCV MCHC Plt Count Neut % (Auto) Lymph % (Auto) Neut # (Auto) Lymph # (Auto) Seg Neuts % (Manual) Lymphocytes % (Manual) Myelocytes % (Man) Abs Neuts (Manual) Toxic Vacuolation Platelet Estimate APTT ABG pH ABG pCO2 ABG pO2 ABG HCO3 ABG O2 Content ABG Base Excess VBG pH VBG pCO2 VBG pO2 VBG HCO3 VBG Base Excess Sodium Potassium Chloride Carbon Dioxide Anion Gap BUN Creatinine Estimated GFR POC Glucose 291 H 224 H 228 H Random Glucose Hemoglobin A1c Calcium Phosphorus Magnesium AST Alkaline Phosphatase Total Creatine Kinase CK-MB (CK-2) Troponin I Total Protein Albumin Triglycerides Cholesterol LDL Cholesterol, Calc Lipase Beta-Hydroxybutyric Acd Urine Clarity Urine Protein Urine Occult Blood Urine WBC Urine WBC Clumps Amorphous Sediment Urine Bacteria Urine Mucus 06/07/18 06/07/18 06/08/18 22:57 23:43 01:09 WBC RBC MCV MCHC Plt Count Neut % (Auto) Lymph % (Auto) Neut # (Auto) Lymph # (Auto) Seg Neuts % (Manual) Lymphocytes % (Manual) Myelocytes % (Man) Abs Neuts (Manual) Toxic Vacuolation Platelet Estimate APTT ABG pH ABG pCO2 ABG pO2 ABG HCO3 ABG O2 Content ABG Base Excess VBG pH VBG pCO2 VBG pO2 VBG HCO3 VBG Base Excess Sodium Potassium Chloride Carbon Dioxide Anion Gap BUN Creatinine Estimated GFR POC Glucose 213 H 214 H 195 H Random Glucose Hemoglobin A1c Calcium Phosphorus Magnesium AST Alkaline Phosphatase Total Creatine Kinase CK-MB (CK-2) Troponin I Total Protein Albumin Triglycerides Cholesterol LDL Cholesterol, Calc Lipase Beta-Hydroxybutyric Acd Urine Clarity Urine Protein Urine Occult Blood Urine WBC Urine WBC Clumps Amorphous Sediment Urine Bacteria Urine Mucus 06/08/18 06/08/18 06/08/18 01:56 02:53 03:48 WBC RBC MCV MCHC Plt Count Neut % (Auto) Lymph % (Auto) Neut # (Auto) Lymph # (Auto) Seg Neuts % (Manual) Lymphocytes % (Manual) Myelocytes % (Man) Abs Neuts (Manual) Toxic Vacuolation Platelet Estimate APTT ABG pH ABG pCO2 ABG pO2 ABG HCO3 ABG O2 Content ABG Base Excess VBG pH VBG pCO2 VBG pO2 VBG HCO3 VBG Base Excess Sodium Potassium Chloride Carbon Dioxide Anion Gap BUN Creatinine Estimated GFR POC Glucose 177 H 181 H 173 H Random Glucose Hemoglobin A1c Calcium Phosphorus Magnesium AST Alkaline Phosphatase Total Creatine Kinase CK-MB (CK-2) Troponin I Total Protein Albumin Triglycerides Cholesterol LDL Cholesterol, Calc Lipase Beta-Hydroxybutyric Acd Urine Clarity Urine Protein Urine Occult Blood Urine WBC Urine WBC Clumps Amorphous Sediment Urine Bacteria Urine Mucus 06/08/18 06/08/18 06/08/18 03:50 03:50 05:13 WBC 3.3 L D RBC 4.36 L MCV MCHC Plt Count 100 L Neut % (Auto) Lymph % (Auto) Neut # (Auto) Lymph # (Auto) Seg Neuts % (Manual) Lymphocytes % (Manual) Myelocytes % (Man) Abs Neuts (Manual) Toxic Vacuolation Platelet Estimate APTT ABG pH ABG pCO2 ABG pO2 ABG HCO3 ABG O2 Content ABG Base Excess VBG pH VBG pCO2 VBG pO2 VBG HCO3 VBG Base Excess Sodium Potassium 3.0 L Chloride 119 H D Carbon Dioxide 19.1 L Anion Gap BUN 28 H Creatinine Estimated GFR 74 L POC Glucose 166 H Random Glucose 173 H Hemoglobin A1c Calcium Phosphorus 0.5 L D Magnesium AST Alkaline Phosphatase Total Creatine Kinase CK-MB (CK-2) Troponin I Total Protein Albumin Triglycerides Cholesterol LDL Cholesterol, Calc Lipase Beta-Hydroxybutyric Acd Urine Clarity Urine Protein Urine Occult Blood Urine WBC Urine WBC Clumps Amorphous Sediment Urine Bacteria Urine Mucus 06/08/18 06/08/18 06/08/18 06:19 06:49 08:13 WBC RBC MCV MCHC Plt Count Neut % (Auto) Lymph % (Auto) Neut # (Auto) Lymph # (Auto) Seg Neuts % (Manual) Lymphocytes % (Manual) Myelocytes % (Man) Abs Neuts (Manual) Toxic Vacuolation Platelet Estimate APTT ABG pH ABG pCO2 ABG pO2 ABG HCO3 ABG O2 Content ABG Base Excess VBG pH VBG pCO2 VBG pO2 VBG HCO3 VBG Base Excess Sodium Potassium Chloride Carbon Dioxide Anion Gap BUN Creatinine Estimated GFR POC Glucose 235 H 250 H 248 H Random Glucose Hemoglobin A1c Calcium Phosphorus Magnesium AST Alkaline Phosphatase Total Creatine Kinase CK-MB (CK-2) Troponin I Total Protein Albumin Triglycerides Cholesterol LDL Cholesterol, Calc Lipase Beta-Hydroxybutyric Acd Urine Clarity Urine Protein Urine Occult Blood Urine WBC Urine WBC Clumps Amorphous Sediment Urine Bacteria Urine Mucus 06/08/18 06/08/18 06/08/18 08:27 10:02 13:18 WBC RBC MCV MCHC Plt Count Neut % (Auto) Lymph % (Auto) Neut # (Auto) Lymph # (Auto) Seg Neuts % (Manual) Lymphocytes % (Manual) Myelocytes % (Man) Abs Neuts (Manual) Toxic Vacuolation Platelet Estimate APTT ABG pH 7.48 H 7.43 H ABG pCO2 20 L* 23 L* ABG pO2 483 H ABG HCO3 15 L* 15 L* ABG O2 Content 20.9 H 21.1 H ABG Base Excess -7.9 L -8.5 L VBG pH VBG pCO2 VBG pO2 VBG HCO3 VBG Base Excess Sodium Potassium Chloride Carbon Dioxide Anion Gap BUN Creatinine Estimated GFR POC Glucose 173 H Random Glucose Hemoglobin A1c Calcium Phosphorus Magnesium AST Alkaline Phosphatase Total Creatine Kinase CK-MB (CK-2) Troponin I Total Protein Albumin Triglycerides Cholesterol LDL Cholesterol, Calc Lipase Beta-Hydroxybutyric Acd Urine Clarity Urine Protein Urine Occult Blood Urine WBC Urine WBC Clumps Amorphous Sediment Urine Bacteria Urine Mucus 06/08/18 06/08/18 06/08/18 13:31 14:19 15:09 WBC RBC MCV MCHC Plt Count Neut % (Auto) Lymph % (Auto) Neut # (Auto) Lymph # (Auto) Seg Neuts % (Manual) Lymphocytes % (Manual) Myelocytes % (Man) Abs Neuts (Manual) Toxic Vacuolation Platelet Estimate APTT ABG pH ABG pCO2 ABG pO2 ABG HCO3 ABG O2 Content ABG Base Excess VBG pH VBG pCO2 VBG pO2 VBG HCO3 VBG Base Excess Sodium Potassium Chloride Carbon Dioxide Anion Gap BUN Creatinine Estimated GFR POC Glucose 217 H 214 H 174 H Random Glucose Hemoglobin A1c Calcium Phosphorus Magnesium AST Alkaline Phosphatase Total Creatine Kinase CK-MB (CK-2) Troponin I Total Protein Albumin Triglycerides Cholesterol LDL Cholesterol, Calc Lipase Beta-Hydroxybutyric Acd Urine Clarity Urine Protein Urine Occult Blood Urine WBC Urine WBC Clumps Amorphous Sediment Urine Bacteria Urine Mucus 06/08/18 16:45 WBC RBC MCV MCHC Plt Count Neut % (Auto) Lymph % (Auto) Neut # (Auto) Lymph # (Auto) Seg Neuts % (Manual) Lymphocytes % (Manual) Myelocytes % (Man) Abs Neuts (Manual) Toxic Vacuolation Platelet Estimate APTT ABG pH ABG pCO2 ABG pO2 ABG HCO3 ABG O2 Content ABG Base Excess VBG pH VBG pCO2 VBG pO2 VBG HCO3 VBG Base Excess Sodium Potassium Chloride Carbon Dioxide Anion Gap BUN Creatinine Estimated GFR POC Glucose 131 H Random Glucose Hemoglobin A1c Calcium Phosphorus Magnesium AST Alkaline Phosphatase Total Creatine Kinase CK-MB (CK-2) Troponin I Total Protein Albumin Triglycerides Cholesterol LDL Cholesterol, Calc Lipase Beta-Hydroxybutyric Acd Urine Clarity Urine Protein Urine Occult Blood Urine WBC Urine WBC Clumps Amorphous Sediment Urine Bacteria Urine Mucus Assessment and Plan - Plan Imaging: MRI lumbar spine demonstrates post operative changes s/p left L4-5 laminectomy. Without any significant fluid collection. Surgical bed with some enhancement MRI brain: pachymeningeal enhancement A/P: 58 yo M s/p left L4-5 laminectomy admitted for sepsis and DKA. MRI lumbar spine does show some enhancement but without any significant fluid collection and wound appears mostly healed. Therefore, no surgical intervention at this time. -continue with medical management, will defer surgical intervention at this time -recommend aggressive wound care of back: frequent turns, no pressure on incision, daily cleaning -Dural thickening/enhancement could be suggestive of either meningitis but also can occur in the setting of CSF leak s/p surgery. Agree with obtaining CSF to r /o meningitis. Recommend needle placement away from the previous incision -will continue to follow
[2018-06-08 17:13] LABS: Potassium 2.6 meq/L (3.5-5.1)
--- NOTE | 2018-06-08 19:37 | P.PNCC ---
Subjective Subjective Remarks/Hospital Course: 58-year-old male with a medical history significant for diabetes mellitus who recently underwent decompression surgery for lumbar spine on 05/19 and was subsequently discharged on 05/[address] Huff. He underwent a follow-up as outpatient with Dr. Huff's office on 06/05. He reportedly had stopped taking his insulin 2 days back and he developed worsening mental status since yesterday and was brought to the ER by his today where he was noted to be confused and disoriented and appeared dehydrated. His fingerstick glucose was 500s, ABG done in the ER revealed severe metabolic acidosis. BMP was still pending when I evaluated the patient. He had received IV insulin and was to be started on an insulin drip at the time of my evaluation. He had also received 2 L normal saline bolus and was getting his third liter IV fluid. Patient was awake and alert however could not tell me the date month or year. He could not tell me that he was in the hospital though he was following commands appropriately. He was slightly tachypneic however did not appear to be in any acute distress. ER and diagnosed patient with diabetic ketoacidosis earlier and has instituted DKA protocol. SUBJECTIVE: 06/07: Quite confused. Knows name and date of . No EtOH history. Site of L3/4 and L4/5 hemilaminectomy with erythema but no drainage. Phosphorus being replaced. 06/08: obtunded this AM. febrile to 104F. leukopenic. lumbar incision has opened a bit at the skin edges. some erythema. ?mild fluctuance. no purulence noted. ABG demonstrates compensated metabolic acidosis, but no longer in DKA- now in severe sepsis and acidotic from tissue hypoperfusion. emergently intubated for rapidly declining mental status as well as worsening respiratory failure (see separate procedure note for details). emergent MRI brain/total spine demonstrates pachymeningitis of the brain, no evidence of spinal abscess. started on vanc/cefepime/flagyl. cultures sent. increased ivf given persistent acidosis. hyperglycemia remains an ongoing problem and remains on insulin drip. discussed with on-call neurosurgeon who will eval for Dr. Huff and make additional recommendations. Discussed with IR team and patient has just received prophylactic lovenox, but will plan on IR guided LP away from lumbar incisional site for CSF for culture and cell count. Objective Vital Signs / I&O: Vital Signs 06/07/18 20:00 06/07/18 20:06 06/07/18 22:00 Temperature 37.7 C H Pulse Rate 93 H 93 H 97 H Respiratory Rate 28 H 24 Blood Pressure 174/79 H Pulse Oximetry 97 96 06/08/18 00:00 06/08/18 02:00 06/08/18 04:00 Temperature 38.1 C H 39.6 C H Pulse Rate 90 89 99 H Respiratory Rate 28 H 25 H Blood Pressure 174/77 H 180/78 H Pulse Oximetry 96 94 L 06/08/18 06:00 06/08/18 08:00 06/08/18 08:08 Temperature 38.8 C H 38.3 C H Pulse Rate 109 H 103 H 103 H Respiratory Rate 30 H Blood Pressure 159/74 H Pulse Oximetry 95 06/08/18 09:00 06/08/18 12:37 06/08/18 13:21 Temperature Pulse Rate 107 H 104 H Respiratory Rate 22 Blood Pressure Pulse Oximetry 100 100 06/08/18 16:04 Temperature Pulse Rate Respiratory Rate 23 Blood Pressure Pulse Oximetry 99 Intake & Output 06/08/18 06/08/18 06/09/18 06:59 18:59 06:59 Intake Total 1600 / 1600 505 / 505 Balance 1600 / 1600 505 / 505 Intake: IV 1600 / 1600 505 / 505 D5W/Normal Saline Inj 1,000 ML 1000 / 1000 @ 200 mls/hr IV.CONT .Q5H [facility] Rx#:[id number] Versed Inj 50 mg In 50 ml @ 2 100 / 100 MG/HR 2 mls/hr IV.CONT TITRATE PRN Rx#:[id number] Cardene Inj 25 MG In NS Inj 240 500 / 500 ML @ 5 MG/HR 50 mls/hr IV.CONT TITRATE PRN Rx#:[id number] Maxipime Inj 2,000 MG In NS Inj 100 / 100 100 ML @ 200 mls/hr IV.SIG Q8H [facility] Rx#:[id number] KCl 20 mEq Premix Inj 20 meq In 100 / 100 200 / 200 100 ml @ 50 mls/hr IV.SIG Q2H [facility] Rx#:[id number] Sodium Phosphate Inj 15 MMOL In 105 / 105 NS Inj 100 ML @ 25 mls/hr IV. SIG UNSCH PRN Rx#:[id number] Other: Date of Last Bowel Movement 06/08/18 06/08/18 Result Diagrams: 06/08/18 03:50 06/08/18 16:00 Objective Remarks: GENERAL: 58-year-old male obtuned and in distress. SKIN: Warm and dry. HEAD: Atraumatic. Normocephalic. EYES: Pupils equal and round. No scleral icterus. No injection or drainage. ENT: No nasal bleeding or discharge. Mucous membranes pink and moist. NECK: Trachea midline. No JVD. CARDIOVASCULAR: tachycardic rate, regular rhythm. sinus. on nicardipine to keep sbp < 180. RESPIRATORY: tachypneic. in distress. labored. using accessory muscles. GASTROINTESTINAL: Abdomen soft, non-tender, slightly protuberant. MUSCULOSKELETAL: Extremities without clubbing, cyanosis, or edema. Incision site lumbar region approximately 6 cm with slight erythema surrounding. Not painful to palpation. No purulence. NEUROLOGICAL: obtunded. RASS -4. moves all extremities spontaneously. Assessment and Plan - Assessment and Plan Plan: Assessment: 58yM s/p recent lumbar laminectomy now with DKA and septic shock with new multiorgan failure and respiratory failure. now on life-support and critically ill. will continue broad spectrum abx to cover [employer]IST[employer] infection empirically. discussed with and patient does not use excessive etoh, and metabolic encephalopathy may have been secondary to FI[employer] ASSISTANT infection instead of etoh withdraw. Neuro/Psych: Acute metabolic encephalopathy Possible acute meningitis Depression CT Brain 06/06 revealed no acute intracranial findings Home medication of hydrocodone/acetaminophen 10/325 1 tab every 4 hours as needed pain Okay to resume sertraline 100 mg daily for depression Acetaminophen 650 p.o. every 6 hours as needed fever abx as below frequent neuro checks versed drip for goal RASS -2. avoid long-acting sedatives d/c CIWA protocol. CV: Hypertension Septic shock watch closely for hypotension acidosis is worsening suggestive of tissue hypoperfusion. will add additional ivf. Home medications are amlodipine 10 mg daily. Patient is also on valsartan 80 mg daily. This is held due to recall As needed labetalol, Nitropaste ordered on nicardipine to keep sbp < 180. may need norepinephrine as shock develops. Resp: Acute hypoxic and hypercarbic respiratory failure likely secondary to sepsis and worsening metabolic acidosis cannot rule out healthcare associated pneumonia at this time: f/u sputum culture broad spectrum abx vent bundle hob elevated nebs wean fio2 for goal spo2 > 90% no weaning of mechanical ventilation until neuro exam improves. GI: Currently n.p.o. status. place OG tube hold off on starting tube feeds in the setting of new shock. Pantoprazole for GI prophylaxis. On omeprazole 20 mg daily at home. Docusate sodium/senna 1 tablet twice daily for bowel regimen : The catheter was replaced due to severe agitation and accurate I's and O's in a diabetic ketoacidosis patient Endo: DKA diabetes mellitus uncontrolled continue insulin drip. although gap has closed, need to continue drip in the setting of worsening shock Heme: Macrocytosis ID: Septic Shock Possible Meningitis Vancomycin with pharmacy dosing Cefepime 2gm iv q8h flagyl 500mg iv q6h sputum, blood, urine cultures IR to obtain CSF (away from lumbar incisional region). currently holding this due to recent lovenox. MSK: 05/19 left L3/4 and L4/5 hemilaminectomy/mesial facetectomy/foraminotomy by Dr. Huff reconsult neurosurgery. FEN: Hypokalemia ICU electrolyte protocol Access -Utilize peripheral IV. Central line if indicated Prophylaxis- -GI -Pantoprazole - SCD/heparin subcu Critical care time: 55 minutes, exclusive of separately billable procedures.
--- NOTE | 2018-06-08 19:38 | P.PCN ---
Date of procedure: 06/08/18 Procedure: Endotracheal Intubation Diagnosis: Severe sepsis Indications: Severe sepsis with acute hypoxic hypercarbic respiratory failure Consent: Emergent Anesthesia: Versed 10 mg IV, rocuronium 100 mill grams IV Description of the Procedure: The patient was positioned in the sniffing position. Pre-oxygenation was performed using a [id number]. Anesthesia was induced via rapid sequence. A [place] #2 was used for laryngoscopy and a Grade I view was obtained. There were significant amount of tenacious secretions at and above the larynx and the hypopharynx. A 8.5 cuffed endotracheal tube was inserted atraumatically through the vocal cords. Confirmation of correct endotracheal tube placement was made by equal and bilateral breath sounds and colorimetric CO2 detection. The endotracheal tube was secured at 23.5 cm at the teeth. There were no immediate complications noted. The patient remained hemodynamically stable throughout the procedure. A chest x-ray has been ordered. I personally performed the procedure.
[2018-06-08] MEDS: Sod Chloride 0.9% Inj 1,000 ML IV.CONT SCH ×4 (22:05→22:08)
[2018-06-08] MEDS: Oral Hygiene Kit OROPHARYNG SCH ×2 (22:06→22:08)
[2018-06-08] MEDS: Chlorhexidine 0.12% Oral Kit 15 ML UDC OROPHARYNG SCH (22:07)
[2018-06-09] MEDS ORDERED: Sodium Phosphate Inj 30 MMOL in Sodium Chlor 0.9% Inj 250 ML IV.SIG PRN (00:35)
[2018-06-09] MEDS ORDERED: Potassium Phosphate 500 MG Soluble Tablet PO PRN ×2 (00:35)
[2018-06-09] MEDS ORDERED: Potassium Chloride 25 MEQ Effervescent Tablet PO PRN (00:35)
[2018-06-09] MEDS ORDERED: Magnesium Oxide 400 MG Tablet PO PRN (00:35)
[2018-06-09] MEDS ORDERED: Magnesium Sulfate Inj 4 GM in Sodium Chlor 0.9% Inj 92 ML IV.SIG PRN (00:35)
[2018-06-09] MEDS ORDERED: Potassium Chlor 20 mEq Premix 20 MEQ/100 ML PIGGYBACK IV.SIG PRN (00:35)
[2018-06-09] MEDS ORDERED: Magnesium Sulfate Inj 2 GM in Sodium Chlor 0.9% Inj 96 ML IV.SIG PRN (00:35)
[2018-06-09] MEDS ORDERED: Potassium Chlor 40 mEq Premix 40 MEQ/100 ML PIGGYBACK IV.SIG PRN (00:35)
[2018-06-09] MEDS: Acetaminophen 325 MG Tablet PO PRN ×2 (00:53→08:03)
[2018-06-09] MEDS: Potassium Chlor 20 mEq Premix 20 MEQ/100 ML PIGGYBACK IV.SIG PRN ×3 (01:45→08:30)
[2018-06-09] MEDS: Dextrose 5%/NaCl 0.9% Inj 1,000 ML IV.CONT SCH ×6 (01:56→23:13)
[2018-06-09] MEDS: Sod Chloride 0.9% Inj 1,000 ML IV.CONT SCH ×10 (01:57→23:13)
[2018-06-09] MEDS: Oral Hygiene Kit OROPHARYNG SCH ×5 (01:58→23:13)
[2018-06-09] MEDS: Potassium Phosphate Inj 30 MMOL in Sodium Chlor 0.9% Inj 250 ML IV.SIG PRN (04:21)
[2018-06-09] MEDS: Midazolam 50 MG/50 ML Inj 50 MG/50 ML BAG IV.CONT PRN ×4 (04:29→21:33)
[2018-06-09 05:42] LABS: Hematocrit 41.3 % (39.0-51.0); Mean Corpuscular HGB Conc 33.9 % (32.0-36.0); Mean Corpuscular Hemoglobin 32.7 pg (27.0-34.0); Mean Corpuscular Volume 96.6 fL (80.0-100.0); Platelet Count 119 th/mm3 (150-450); Red Blood Count 4.27 mil/mm3 (4.50-5.90); Red Cell Distribution Width 14.5 % (11.6-17.2); White Blood Count 6.9 th/mm3 (4.0-11.0)
[2018-06-09] MEDS: Labetalol HCl Inj 100 MG/20 ML Vial IV.PUSH PRN ×3 (05:45→21:31)
[2018-06-09 05:57] LABS: Calcium 8.2 mg/dL (8.5-10.1); Carbon Dioxide 17.7 meq/L (21.0-32.0); Phosphorus 0.4 mg/dL (2.5-4.9)
[2018-06-09 05:59] LABS: Potassium 2.7 meq/L (3.5-5.1)
[2018-06-09 06:08] LABS: Activated Partial Thrombo Time 30.8 sec (24.3-30.1); INR 1.1 Ratio; Prothrombin Time 10.9 sec (9.8-11.6)
[2018-06-09 07:08] LABS: Bacteria,Urine Rare /hpf; Bilirubin,Urine Negative (Negative); Clarity,Urine Clear (Clear); Color,Urine Yellow (Yellw/Straw); Glucose,Urine (UA) 500 or Greater mg/dL (Negative); Hyaline Casts,Urine 1 /lpf (0-3); Leukocyte Esterase,Urine Trace (Negative); Mucus,Urine Few /lpf (Occasional); Nitrite,Urine Negative (Negative)
[2018-06-09] MEDS: fentaNYL 10 mcg/mL Premix Drip 2,500 MCG/250 ML BAG IV.SIG PRN ×2 (07:59→16:34)
[2018-06-09] MEDS: amLODIPine 10 MG Tablet PO SCH (08:03)
[2018-06-09] MEDS: Sertraline 100 MG Tablet PO SCH (08:03)
[2018-06-09] MEDS: Chlorhexidine 0.12% Oral Kit 15 ML UDC OROPHARYNG SCH ×2 (08:04→21:32)
[2018-06-09] MEDS: Senna/Docusate Sodium 8.6/50 MG Tablet PO SCH ×2 (08:05→21:33)
[2018-06-09] MEDS: Pantoprazole Inj 40 MG Vial IV.PUSH SCH (08:05)
--- NOTE | 2018-06-09 10:19 | P.PNCC ---
Subjective Subjective Remarks/Hospital Course: 58-year-old male with a medical history significant for diabetes mellitus who recently underwent decompression surgery for lumbar spine on 05/19 and was subsequently discharged on 05/[address] Huff. He underwent a follow-up as outpatient with Dr. Huff's office on 06/05. He reportedly had stopped taking his insulin 2 days back and he developed worsening mental status since yesterday and was brought to the ER by his today where he was noted to be confused and disoriented and appeared dehydrated. His fingerstick glucose was 500s, ABG done in the ER revealed severe metabolic acidosis. BMP was still pending when I evaluated the patient. He had received IV insulin and was to be started on an insulin drip at the time of my evaluation. He had also received 2 L normal saline bolus and was getting his third liter IV fluid. Patient was awake and alert however could not tell me the date month or year. He could not tell me that he was in the hospital though he was following commands appropriately. He was slightly tachypneic however did not appear to be in any acute distress. ER and diagnosed patient with diabetic ketoacidosis earlier and has instituted DKA protocol. SUBJECTIVE: 06/07: Quite confused. Knows name and date of . No EtOH history. Site of L3/4 and L4/5 hemilaminectomy with erythema but no drainage. Phosphorus being replaced. 06/08: obtunded this AM. febrile to 104F. leukopenic. lumbar incision has opened a bit at the skin edges. some erythema. ?mild fluctuance. no purulence noted. ABG demonstrates compensated metabolic acidosis, but no longer in DKA- now in severe sepsis and acidotic from tissue hypoperfusion. emergently intubated for rapidly declining mental status as well as worsening respiratory failure (see separate procedure note for details). emergent MRI brain/total spine demonstrates pachymeningitis of the brain, no evidence of spinal abscess. started on vanc/cefepime/flagyl. cultures sent. increased ivf given persistent acidosis. hyperglycemia remains an ongoing problem and remains on insulin drip. discussed with on-call neurosurgeon who will eval for Dr. Huff and make additional recommendations. Discussed with IR team and patient has just received prophylactic lovenox, but will plan on IR guided LP away from lumbar incisional site for CSF for culture and cell count. 06/09: remains intubated and encephalopathic. remains febrile as well. wbc improving and leukopenia resolving. plan for LP today. electrolyte disturbances remain including severe hypokalemia and hypophosphatemia despite aggressive replacement: unable to replace K fast enough through PIV, and will require central venous access. cultures pending. Objective Vital Signs / I&O: Vital Signs 06/08/18 12:37 06/08/18 13:21 06/08/18 16:00 Temperature 38.7 C H Pulse Rate 104 H 98 H Respiratory Rate 22 22 Blood Pressure 131/69 Pulse Oximetry 100 100 06/08/18 16:04 06/08/18 19:50 06/08/18 19:57 Temperature Pulse Rate 92 H Respiratory Rate 23 23 23 Blood Pressure Pulse Oximetry 99 100 06/08/18 20:00 06/09/18 00:00 06/09/18 00:10 Temperature 37.8 C H 38.4 C H Pulse Rate 91 H 86 Respiratory Rate 22 Blood Pressure 147/78 H 141/78 H Pulse Oximetry 95 100 06/09/18 02:45 06/09/18 04:00 06/09/18 04:21 Temperature 38.1 C H Pulse Rate 81 Respiratory Rate 22 22 Blood Pressure 149/85 H Pulse Oximetry 100 100 06/09/18 08:00 06/09/18 08:13 06/09/18 08:14 Temperature 38.0 C H Pulse Rate 91 H 93 H Respiratory Rate 25 H 23 25 H Blood Pressure 186/97 H Pulse Oximetry 100 99 06/09/18 09:00 Temperature Pulse Rate 81 Respiratory Rate Blood Pressure Pulse Oximetry Intake & Output 06/08/18 06/09/18 06/09/18 18:59 06:59 18:59 Intake Total 1865 / 1865 3461.2 / 3461.2 1050 / 1050 Output Total 3500 / 3500 3700 / 3700 Balance -1635 / -1635 -238.8 / -238.8 1050 / 1050 Intake: IV 1805 / 1805 3411.2 / 3411.2 1050 / 1050 D5W/Normal Saline Inj 1,000 ML 1000 / 1000 1000 / 1000 1000 / 1000 @ 200 mls/hr IV.CONT .Q5H [facility] Rx#:[id number] Versed Inj 50 mg In 50 ml @ 2 100 / 100 100 / 100 50 / 50 MG/HR 2 mls/hr IV.CONT TITRATE PRN Rx#:[id number] NS Inj 1,000 ML @ 250 mls/hr IV 1000 / 1000 .CONT .Q4H [facility] Rx#:[id number] Maxipime Inj 2,000 MG In NS Inj 200 / 200 100 / 100 100 ML @ 200 mls/hr IV.SIG Q8H [facility] Rx#:[id number] MVI-12 Inj 10 ML Thiamine Inj 511.2 / 511.2 100 MG Folvite Inj 1 MG In NS Inj 500 ML @ 125 mls/hr IV.SIG Q24H [facility] Rx#:[id number] KCl 20 mEq Premix Inj 20 meq In 300 / 300 400 / 400 100 ml @ 50 mls/hr IV.SIG Q2H PRN Rx#:[id number] Sodium Phosphate Inj 15 MMOL In 105 / 105 100 / 100 NS Inj 100 ML @ 25 mls/hr IV. SIG UNSCH PRN Rx#:[id number] Flagyl 500 MG Inj 100 ML @ 100 100 / 100 200 / 200 mls/hr IV.SIG Q6H [facility] Rx#: [id number] Tube Irrigant 60 / 60 50 / 50 Output: Urine 1850 / 1850 Urine Amount (Catheter) 3500 / 3500 1850 / 1850 Indwelling Urethral Catheter 3500 / 3500 1850 / 1850 Other: Date of Last Bowel Movement 06/08/18 06/08/18 06/08/18 # Bowel Movements 1 3 Result Diagrams: 06/09/18 05:26 06/09/18 05:26 Objective Remarks: GENERAL: 58-year-old male intubated, sedated, encephalopathic SKIN: Warm and dry. HEAD: Atraumatic. Normocephalic. EYES: Pupils equal and round. No scleral icterus. No injection or drainage. ENT: No nasal bleeding or discharge. Mucous membranes pink and moist. NECK: Trachea midline. No JVD. CARDIOVASCULAR: tachycardic rate, regular rhythm. sinus. RESPIRATORY: PRVC, fio2 40%. peep 5. tachypneic. in distress. labored. using accessory muscles. GASTROINTESTINAL: Abdomen soft, non-tender, slightly protuberant. MUSCULOSKELETAL: Extremities without clubbing, cyanosis, or edema. Incision site lumbar region approximately 6 cm with slight erythema surrounding. Not painful to palpation. No purulence. NEUROLOGICAL: obtunded. RASS -4. moves all extremities spontaneously. Assessment and Plan - Assessment and Plan Plan: Assessment: 58yM s/p recent lumbar laminectomy now with DKA and septic shock with new multiorgan failure and respiratory failure. now on life-support and critically ill. will continue broad spectrum abx to cover [employer] GENER[employer] infection empirically. discussed with and patient does not use excessive etoh, and metabolic encephalopathy likely secondary to [employer] GENER[employer] infection instead of etoh withdraw. plan for LP today. aggressive electrolyte replacement. free water deficit developing, but do not want to add parenteral free water with active [employer] injury: will start enteral free water. Neuro/Psych: Acute metabolic encephalopathy Possible acute meningitis Depression CT Brain 06/06 revealed no acute intracranial findings Home medication of hydrocodone/acetaminophen 10/325 1 tab every 4 hours as needed pain Okay to resume sertraline 100 mg daily for depression Acetaminophen 650 p.o. every 6 hours as needed fever abx as below frequent neuro checks transition to propofol for goal RASS -2. add fentanyl drip. avoid long-acting sedatives d/c CIWA protocol. check EEG given persistent encephalopathy. CV: Hypertension Septic shock watch closely for hypotension acidosis is worsening suggestive of tissue hypoperfusion. continue ivf. repeat ABG. Home medications are amlodipine 10 mg daily. Patient is also on valsartan 80 mg daily. This is held due to recall As needed labetalol, Nitropaste ordered on nicardipine to keep sbp < 180. may need norepinephrine as shock develops. Resp: Acute hypoxic and hypercarbic respiratory failure likely secondary to sepsis and worsening metabolic acidosis cannot rule out healthcare associated pneumonia at this time: f/u sputum culture broad spectrum abx vent bundle hob elevated nebs wean fio2 for goal spo2 > 90% no weaning of mechanical ventilation until neuro exam improves. GI: start tube feeds. nutrition consult for goal. Pantoprazole for GI prophylaxis. On omeprazole 20 mg daily at home. Docusate sodium/senna 1 tablet twice daily for bowel regimen : The catheter was replaced due to severe agitation and accurate I's and O's in a diabetic ketoacidosis patient Endo: DKA diabetes mellitus uncontrolled continue insulin drip. although gap has closed, need to continue drip in the setting of worsening shock Heme: Macrocytosis ID: Septic Shock Possible Meningitis Vancomycin with pharmacy dosing Cefepime 2gm iv q8h flagyl 500mg iv q6h sputum, blood, urine cultures IR to obtain CSF (away from lumbar incisional region). plan for today. hold off on acyclovir at this time given clinical course more suggestive of acute bacterial [employer] GENER[employer] infection. MSK: 05/19 left L3/4 and L4/5 hemilaminectomy/mesial facetectomy/foraminotomy by Dr. Huff reconsult neurosurgery. FEN: severe persistent Hypokalemia severe hypophosphatemia Hypernatremia Hyperchloremia Acute combined anion-gap and [id number] metabolic acidosis Free water deficit ICU electrolyte protocol will be forced to place central line due to persistent hypokalemia despite maximum continuous rate of K replacement through piv. add enteral free water flushes 300mL po q4h check ABG trend electrolytes. Access - 06/09 left SC TLC - mcgrath Prophylaxis- -GI -Pantoprazole - SCD/heparin subcu Critical care time: 47 minutes, exclusive of separately billable procedures.
[2018-06-09 10:42] LABS: ABG Base Excess -7.8 mmol/L (-2-2); ABG PCO2 24 mmHg (38-42); ABG PO2 221 mmHG (61-120)
--- NOTE | 2018-06-09 10:42 | P.PCN ---
Date of procedure: 06/09/18 Procedure: Central Line Procedure Note Left subclavian 7 [place] 20 cm triple-lumen catheter Diagnosis: Severe sepsis Indications: Need for central pressure monitoring and aggressive high-dose electrolyte replacement Consent: Obtained from the family Anesthesia: Versed IV, 1% lidocaine locally Description of the Procedure: The patient was placed in the supine, mild- Trendelenburg position. The area was prepped and draped sterilely. A 19g needle was inserted under negative pressure aspiration and dark venous blood was obtained. A guidewire was inserted easily without resistance. A small incision was made using a #11 blade. Using a modified Seldinger technique, the dilator and 7 [place]ish, 20 cm catheter were advanced over the guidewire without resistance. All ports were aspirated and flushed, and had brisk blood return. The line was secured at the skin using a non-suture StatLock device. A Biopatch and Transparent sterile dressing were applied. There were no immediate complications noted. There was minimal EBL. The patient tolerated the procedure well. Ultrasound guidance was not used for this procedure A Chest x-ray has been ordered. I personally performed the procedure.
--- NOTE | 2018-06-09 10:58 | XR ---
EXAM DATE: 06/09/2018 10:41 AM EDT AGE/SEX: 58 years / Male INDICATIONS: Central line placement. CLINICAL DATA: This is the patient's subsequent encounter. Patient reports that signs and symptoms h ave been present for 4 - 6 days and indicates a pain score of Nonresponsive. MEDICAL/SURGICAL HISTORY: None. . Back surgery, hip replacement. COMPARISON: C, CHEST 1V SINGLE AP, 06/08/2018. . FINDINGS: Portable AP view of the chest demonstrates a normal-sized cardiac silhouette. ETT and nasogastric tub e remain present. Left subclavian central line is now present with distal tip in the superior vena ca va. Multiple EKG lines overlie the patient. Lungs are underinflated with subsegmental atelectasis in the lower lung zones. No pneumothorax is visualized. CONCLUSION: 1. Left subclavian central line distal tip in the superior vena cava. No pneumothorax is visualized. 2. Under inflation with bibasilar subsegmental atelectasis. Electronically signed by: Gerardo Russo MD 06/09/2018 10:56 AM EDT
[2018-06-09] MEDS: Multivitamin Inj 10 ML, Thiamine Inj 100 MG, Folic Acid Inj 1 MG in Sodium Chlor 0.9% I... IV.SIG SCH (11:57)
[2018-06-09] MEDS: Potassium Chlor 40 mEq Premix 40 MEQ/100 ML PIGGYBACK IV.SIG PRN (13:11)
--- NOTE | 2018-06-09 15:04 | P.DIET ---
Nutritional Evaluation Type of nutrition evaluation: initial Nutrition consult regarding: Tube Feeding Nutrition screening: [facility] (TFing) Objective - Diagnosis Acute DKA - Objective % IBW: 130 (IBW = 154#) Body Weight Used for Calculations: IBW (70 kg) Energy Needs - Lower Range (kCal/kg): 25 Energy Needs - Upper Range (kCal/kg): 30 Lower Limit kCal/kg (kCals): 1,750 Upper Limit kCal/kg (kCals): 2,100 Lower Limit Protein Factor (Grams per Kg): 1.0 Upper Limit Protein Factor (Grams per Kg): 1.5 Lower Protein Needs (Protein): 70 Upper Protein Needs (Protein): 105 Dietitian Reviewed in Medical Record: Curent medications, Labs, Medical history , Tube feeding Diet Order: NPO Objective Comments: 05/19 decompressive surgery for lumbar spine HgA1c 9.8 Assessment Assessment: Pt intubated and encephalopathic and needs TFing to meet needs. Current order is for Glucerna 1.5 @ 60 mls/hr goal with Nutrisource Fiber packet bid (6 gms soluble fiber). Agree with current TF order. This will meet needs by providing 2160 kcals, 119 gms protein and 1093 mls of free water. Recommendations: Glucerna 1.5 @ 60 mls/hr goal Nutrisource Fiber as ordered. Dietitian to Monitor: Lab values, Intake & Output, Weight change, Medical course
--- NOTE | 2018-06-09 16:19 | IR ---
EXAM DATE: 06/09/2018 4:09 PM EDT AGE/SEX: 58 years / Male INDICATIONS: Patient with altered mental status in need of lumbar puncture. CLINICAL DATA: This is the patient's initial encounter. Patient reports that signs and symptoms have been present for 1 week and indicates a pain score of Nonresponsive. MEDICAL/SURGICAL HISTORY: Diabetes. Gastroesophageal reflux disease. Hypertension. Back pain Tonsillectomy. Right hip replacement, Adenoidectomy, Decompression surgery for lumbar spine COMPARISON: [facility], MR CERVICAL SPINE W & W/O CON, 06/08/2018. . FLUORO TIME (min): 0.8 IMAGE SERIES: 1 ACCESS SITE: L5-S1 LUMBAR PUNCTURE TIME: 1550 hours FLUID: Total volume of 16 cc of clear fluid was removed. Fluid was sent to lab for ordered studies. . . PROCEDURE: 1. Fluoroscopic guided lumbar puncture. The risks, benefits and alternatives to the procedure were explained and verbal and written consent w as obtained. The site was prepped in sterile fashion. Full sterile technique was used, including ca p, mask, sterile gloves and gown and a large sterile sheet. Hand hygiene and 2% chlorhexidine and/or betadine/alcohol prep was utilized per protocol for cutaneous antisepsis. The skin and subcutaneous tissues were infiltrated with local anesthetic solution. With fluoroscopic guidance the lumbar thecal sac was punctured at the level above. Low lumbar punctur e was requested due to concerns for cellulitis and potential infected tract. The fluid described abov e was removed without difficulty. The patient tolerated the procedure well and there were no complications. CONCLUSION: 1. Uncomplicated fluoroscopically guided lumbar puncture. Electronically signed by: Tobi Story MD 06/09/2018 4:18 PM EDT
[2018-06-09 17:50] LABS: Lymphocytes, CSF 99 %; Neutrophils,CSF 1 %
[2018-06-09 17:55] LABS: RBC on Tube 4 50 /mm3
[2018-06-09] MEDS: NUTRISOURCE FIBER G-TUBE SCH (21:33)
[2018-06-09 23:38] LABS: Anion Gap 10 meq/L (5-15); Blood Urea Nitrogen 14 mg/dL (7-18); Calcium 7.9 mg/dL (8.5-10.1); Carbon Dioxide 18.9 meq/L (21.0-32.0); Chloride 130 meq/L (98-107); Glomerular Filtration Rate Greater Than 89 mL/min (>89); Glucose,Random 227 mg/dL (74-106); Phosphorus 0.6 mg/dL (2.5-4.9)
[2018-06-09 23:41] LABS: Sodium 159 meq/L (136-145)
[2018-06-10] MEDS: Dextrose 5%/NaCl 0.45% Inj 1,000 ML IV.CONT SCH ×2 (00:03→05:17)
[2018-06-10] MEDS: Potassium Phosphate Inj 30 MMOL in Sodium Chlor 0.9% Inj 250 ML IV.SIG PRN (00:52)
[2018-06-10] MEDS: Potassium Chlor 40 mEq Premix 40 MEQ/100 ML PIGGYBACK IV.SIG PRN (02:04)
[2018-06-10] MEDS: Midazolam 50 MG/50 ML Inj 50 MG/50 ML BAG IV.CONT PRN (02:07)
[2018-06-10] MEDS: Sod Chloride 0.9% Inj 1,000 ML IV.CONT SCH ×2 (03:08→07:11)
[2018-06-10] MEDS: Oral Hygiene Kit OROPHARYNG SCH ×3 (05:17→16:38)
[2018-06-10] MEDS: fentaNYL 10 mcg/mL Premix Drip 2,500 MCG/250 ML BAG IV.SIG PRN ×2 (05:51→20:49)
[2018-06-10] MEDS ORDERED: Dextrose 50% in Water 50 ML Vial IV.PUSH PRN (08:14)
--- NOTE | 2018-06-10 08:34 | P.PNCC ---
Subjective Subjective Remarks/Hospital Course: 58-year-old male with a medical history significant for diabetes mellitus who recently underwent decompression surgery for lumbar spine on 05/19 and was subsequently discharged on 05/[address] Hfuf. He underwent a follow-up as outpatient with Dr. Huff's office on 06/05. He reportedly had stopped taking his insulin 2 days back and he developed worsening mental status since yesterday and was brought to the ER by his today where he was noted to be confused and disoriented and appeared dehydrated. His fingerstick glucose was 500s, ABG done in the ER revealed severe metabolic acidosis. BMP was still pending when I evaluated the patient. He had received IV insulin and was to be started on an insulin drip at the time of my evaluation. He had also received 2 L normal saline bolus and was getting his third liter IV fluid. Patient was awake and alert however could not tell me the date month or year. He could not tell me that he was in the hospital though he was following commands appropriately. He was slightly tachypneic however did not appear to be in any acute distress. ER and diagnosed patient with diabetic ketoacidosis earlier and has instituted DKA protocol. SUBJECTIVE: 06/07: Quite confused. Knows name and date of . No EtOH history. Site of L3/4 and L4/5 hemilaminectomy with erythema but no drainage. Phosphorus being replaced. 06/08: obtunded this AM. febrile to 104F. leukopenic. lumbar incision has opened a bit at the skin edges. some erythema. ?mild fluctuance. no purulence noted. ABG demonstrates compensated metabolic acidosis, but no longer in DKA- now in severe sepsis and acidotic from tissue hypoperfusion. emergently intubated for rapidly declining mental status as well as worsening respiratory failure (see separate procedure note for details). emergent MRI brain/total spine demonstrates pachymeningitis of the brain, no evidence of spinal abscess. started on vanc/cefepime/flagyl. cultures sent. increased ivf given persistent acidosis. hyperglycemia remains an ongoing problem and remains on insulin drip. discussed with on-call neurosurgeon who will eval for Dr. Huff and make additional recommendations. Discussed with IR team and patient has just received prophylactic lovenox, but will plan on IR guided LP away from lumbar incisional site for CSF for culture and cell count. 06/09: remains intubated and encephalopathic. remains febrile as well. wbc improving and leukopenia resolving. plan for LP today. electrolyte disturbances remain including severe hypokalemia and hypophosphatemia despite aggressive replacement: unable to replace K fast enough through PIV, and will require central venous access. cultures pending. 06/10: remains intubated. LP done yesterday with borderline low glucose (125 when systemic ~250), elevated protein. cultures pending. sodium continues to rise despite enteral free water replacement. Objective Vital Signs / I&O: Vital Signs 06/09/18 09:00 06/09/18 10:00 06/09/18 11:44 Temperature Pulse Rate 81 73 Respiratory Rate 22 Blood Pressure Pulse Oximetry 100 06/09/18 12:00 06/09/18 13:26 06/09/18 14:00 Temperature 36.7 C Pulse Rate 69 64 Respiratory Rate 22 Blood Pressure 123/73 Pulse Oximetry 100 100 06/09/18 16:15 06/09/18 17:00 06/09/18 18:00 Temperature 36.4 C Pulse Rate 66 68 Respiratory Rate 22 22 Blood Pressure 139/78 Pulse Oximetry 100 100 06/09/18 20:00 06/09/18 20:25 06/09/18 20:27 Temperature 36.8 C Pulse Rate 74 75 Respiratory Rate 22 22 22 Blood Pressure 165/89 H Pulse Oximetry 100 100 06/09/18 22:00 06/09/18 23:06 06/10/18 00:00 Temperature 37.1 C Pulse Rate 65 64 Respiratory Rate 22 22 Blood Pressure 138/75 Pulse Oximetry 100 100 06/10/18 01:45 06/10/18 02:00 06/10/18 04:00 Temperature 37.1 C Pulse Rate 65 69 Respiratory Rate 22 22 Blood Pressure 150/86 H Pulse Oximetry 100 100 06/10/18 04:24 06/10/18 06:00 06/10/18 07:50 Temperature Pulse Rate 85 69 Respiratory Rate 22 22 Blood Pressure Pulse Oximetry 100 06/10/18 07:51 Temperature Pulse Rate Respiratory Rate 22 Blood Pressure Pulse Oximetry 100 Intake & Output 06/09/18 06/10/18 06/10/18 18:59 06:59 18:59 Intake Total 5021.2 / 5021.2 3811 / 3811 Output Total 2450 / 2450 2250 / 2250 Balance 2571.2 / 2571.2 1561 / 1561 Weight 88.8 kg Intake: IV 4721.2 / 4721.2 3111 / 3111 D5W/1/2 NS Inj 1,000 ML @ 200 1000 / 1000 mls/hr IV.CONT .Q5H FRANKY Rx#: [id number] D5W/Normal Saline Inj 1,000 ML 3000 / 3000 1261 / 1261 @ 200 mls/hr IV.CONT .Q5H FRANKY Rx#:[id number] Versed Inj 50 mg In 50 ml @ 2 100 / 100 100 / 100 MG/HR 2 mls/hr IV.CONT TITRATE PRN Rx#:[id number] Maxipime Inj 2,000 MG In NS Inj 200 / 200 100 / 100 100 ML @ 200 mls/hr IV.SIG Q8H FRANKY Rx#:[id number] MVI-12 Inj 10 ML Thiamine Inj 511.2 / 511.2 100 MG Folvite Inj 1 MG In NS Inj 500 ML @ 125 mls/hr IV.SIG Q24H FRANKY Rx#:[id number] KCl 20 mEq Premix Inj 20 meq In 100 / 100 100 ml @ 50 mls/hr IV.SIG Q2H PRN Rx#:[id number] KCl 40 mEq Premix Inj 40 meq In 100 / 100 100 / 100 100 ml @ 25 mls/hr IV.SIG UNSCH PRN Rx#:[id number] Potassium Phosphate Inj 30 MMOL 260 / 260 In NS Inj 250 ML @ 42 mls/hr IV.SIG UNSCH PRN Rx#:[id number] fentaNYL 10 mcg/mL Premix Drip 250 / 250 250 / 250 2,500 mcg In 250 ml @ 50 MCG/HR 5 mls/hr IV.SIG TITRATE PRN Rx #:[id number] Flagyl 500 MG Inj 100 ML @ 100 100 / 100 300 / 300 mls/hr IV.SIG Q6H FRANKY Rx#: [id number] Oral 300 / 300 Tube Feeding 100 / 100 Water Bolus Amount 600 / 600 Output: Urine Amount (Catheter) 2450 / 2450 2250 / 2250 Indwelling Urethral Catheter 2450 / 2450 2250 / 2250 Other: Date of Last Bowel Movement 06/09/18 06/09/18 # Bowel Movements 1 Result Diagrams: 06/09/18 05:26 06/09/18 22:33 Objective Remarks: GENERAL: 58-year-old male intubated, sedated, encephalopathic SKIN: Warm and dry. HEAD: Atraumatic. Normocephalic. EYES: Pupils equal and round. No scleral icterus. No injection or drainage. ENT: No nasal bleeding or discharge. Mucous membranes pink and moist. NECK: Trachea midline. No JVD. CARDIOVASCULAR: tachycardic rate, regular rhythm. sinus. RESPIRATORY: PRVC, fio2 40%. peep 5. equal chest rise. GASTROINTESTINAL: Abdomen soft, non-tender, slightly protuberant. MUSCULOSKELETAL: Extremities without clubbing, cyanosis, or edema. Incision site lumbar region approximately 6 cm with slight erythema surrounding. Not painful to palpation. No purulence. NEUROLOGICAL: obtunded. RASS -4. moves all extremities spontaneously. withdraws to pain Assessment and Plan - Assessment and Plan Plan: Assessment: 58yM s/p recent lumbar laminectomy now with DKA and septic shock with new multiorgan failure and respiratory failure. remains critically ill. continue broad spectrum abx and follow culture data. obtain EEG today given persistent encephalopathy. increase free water. continue electrolyte replacement. critically ill without significant improvements in overall clinical status in last 24h. Neuro/Psych: Acute metabolic encephalopathy Possible acute meningitis Depression CT Brain 06/06 revealed no acute intracranial findings Home medication of hydrocodone/acetaminophen 10/325 1 tab every 4 hours as needed pain Okay to resume sertraline 100 mg daily for depression Acetaminophen 650 p.o. every 6 hours as needed fever abx as below frequent neuro checks transition to propofol for goal RASS -2. fentanyl drip. avoid long-acting sedatives d/c CIWA protocol. check EEG given persistent encephalopathy. CV: Hypertension Septic shock- resolving. Home medications are amlodipine 10 mg daily. Patient is also on valsartan 80 mg daily. This is held due to recall As needed labetalol, Nitropaste ordered off nicardipine. Resp: Acute hypoxic and hypercarbic respiratory failure likely secondary to sepsis and worsening metabolic acidosis cannot rule out healthcare associated pneumonia at this time: f/u sputum culture broad spectrum abx vent bundle hob elevated nebs wean fio2 for goal spo2 > 90% no weaning of mechanical ventilation until neuro exam improves. GI: continue tube feeds nutrition consult for goal. Pantoprazole for GI prophylaxis. On omeprazole 20 mg daily at home. Docusate sodium/senna 1 tablet twice daily for bowel regimen : The catheter was replaced due to severe agitation and accurate I's and O's in a diabetic ketoacidosis patient Endo: DKA - resolved diabetes mellitus uncontrolled transition off insulin drip start levemir 10 units SQ daily q4h high dose SSI Heme: Macrocytosis ID: Septic Shock- resolving. Possible Meningitis Possible HCAP pneumonia Vancomycin with pharmacy dosing Cefepime 2gm iv q8h flagyl 500mg iv q6h sputum growing staph and GNRs, speciation to follow blood cultures 06/08 NGTD CSF culture 06/09 NGTD hold off on acyclovir at this time given clinical course more suggestive of acute bacterial HAND [employer] infection. MSK: 05/19 left L3/4 and L4/5 hemilaminectomy/mesial facetectomy/foraminotomy by Dr. Huff reconsulted neurosurgery: non-operative management at this time. FEN: severe persistent Hypokalemia severe hypophosphatemia Hypernatremia- worsening Hyperchloremia Acute [id number]-zwy metabolic acidosis Free water deficit ICU electrolyte protocol continue enteral free water flushes 300mL po q4h d/c NS mivf. start D5w + 40meq NaAcetate at 100cc/hr. trend electrolytes. Access - 06/09 left SC TLC - mcgrath Prophylaxis- -GI -Pantoprazole - SCD/heparin subcu Critical care time: 39 minutes, exclusive of separately billable procedures.
[2018-06-10] MEDS: Chlorhexidine 0.12% Oral Kit 15 ML UDC OROPHARYNG SCH ×2 (08:40→20:51)
[2018-06-10] MEDS: Senna/Docusate Sodium 8.6/50 MG Tablet PO SCH ×2 (08:41→20:46)
[2018-06-10] MEDS: Sertraline 100 MG Tablet PO SCH (08:41)
[2018-06-10] MEDS: amLODIPine 10 MG Tablet PO SCH (08:41)
[2018-06-10] MEDS: Pantoprazole Inj 40 MG Vial IV.PUSH SCH (08:42)
[2018-06-10] MEDS ORDERED: DEXTROSE 5% IV.CONT SCH ×2 (09:00)
[2018-06-10] MEDS ORDERED: WATER IV.CONT SCH ×2 (09:00)
[2018-06-10] MEDS ORDERED: SODIUM ACETATE IV.CONT SCH ×2 (09:00)
[2018-06-10] MEDS ORDERED: Insulin Detemir Inj 1,000 UNIT/10 ML Vial SQ SCH (09:00)
[2018-06-10 09:09] LABS: Hematocrit 35.1 % (39.0-51.0); Hemoglobin 11.9 gm/dL (13.0-17.0); Mean Corpuscular HGB Conc 33.8 % (32.0-36.0); Mean Corpuscular Hemoglobin 32.9 pg (27.0-34.0); Mean Corpuscular Volume 97.4 fL (80.0-100.0); Mean Platelet Volume 10.4 fL (7.0-11.0); Platelet Count 118 th/mm3 (150-450); Red Blood Count 3.61 mil/mm3 (4.50-5.90); Red Cell Distribution Width 14.8 % (11.6-17.2); White Blood Count 10.3 th/mm3 (4.0-11.0)
[2018-06-10 09:11] LABS: Baso % (Auto) 0.2 % (0.0-2.0); Eos # (Auto) 0.4 th/mm3 (0.0-0.4); Eos % (Auto) 3.3 % (0.0-4.0); Hematocrit 36.5 % (39.0-51.0); Hemoglobin 12.2 gm/dL (13.0-17.0); Lymph # (Auto) 0.9 th/mm3 (1.0-4.8); Lymph % (Auto) 8.4 % (9.0-44.0); Mean Corpuscular HGB Conc 33.3 % (32.0-36.0); Mean Corpuscular Hemoglobin 32.5 pg (27.0-34.0); Mean Corpuscular Volume 97.7 fL (80.0-100.0); Mean Platelet Volume 9.7 fL (7.0-11.0); Mono # (Auto) 0.7 th/mm3 (0.0-0.9); Mono % (Auto) 6.9 % (0.0-8.0); Neut # (Auto) 8.8 th/mm3 (1.8-7.7); Neut % (Auto) 81.2 % (16.0-70.0); Platelet Count 119 th/mm3 (150-450); Red Blood Count 3.74 mil/mm3 (4.50-5.90); Red Cell Distribution Width 14.5 % (11.6-17.2); White Blood Count 10.8 th/mm3 (4.0-11.0)
[2018-06-10] MEDS: NUTRISOURCE FIBER G-TUBE SCH (09:25)
[2018-06-10 11:53] LABS: Alanine Aminotransferase 21 U/L (12-78); Albumin 1.9 g/dL (3.4-5.0); Alkaline Phosphatase 101 U/L (45-117); Anion Gap 9 meq/L (5-15); Aspartate Aminotransferase 15 U/L (15-37); Blood Urea Nitrogen 14 mg/dL (7-18); Calcium 7.6 mg/dL (8.5-10.1); Carbon Dioxide 20.1 meq/L (21.0-32.0); Chloride 124 meq/L (98-107); Glomerular Filtration Rate Greater Than 89 mL/min (>89); Glucose,Random 231 mg/dL (74-106); Potassium 3.7 meq/L (3.5-5.1); Sodium 153 meq/L (136-145); Total Protein 5.1 g/dL (6.4-8.2)
[2018-06-10] MEDS: Insulin NovoLIN Regular Correctional Sugar Inj SQ SCH ×3 (12:35→20:54)
[2018-06-10] MEDS: SODIUM ACETATE IV.SIG SCH ×2 (20:46)
[2018-06-10] MEDS: DEXTROSE 5% IV.SIG SCH ×2 (20:46)
[2018-06-10] MEDS: WATER IV.SIG SCH ×2 (20:46)
--- NOTE | 2018-06-10 21:02 | MG ---
cc: Job Ellis MD EEG RECORD NUMBER: [id number] On fentanyl and Diprivan. 1-3 Hz generalized slowing with occasional theta activity occurring paroxysmally 20-60 microvolts. No significant driving with photic stimulation. Mild EEG variability reactivity. Single lead EKG showing sinus rhythm with premature contractions. INTERPRETATION: Moderate encephalopathy, which may be pharmacologically induced. No epileptic activity noted. Clinical correlation. Job Ellis MD MG/ct , 08:47 PM , 08:51 PM
[2018-06-10] MEDS: Propofol 1000 mg/100 ml Inj 1,000 MG/100 ML BOTTLE IV.CONT PRN (23:12)
[2018-06-11] MEDS: Propofol 1000 mg/100 ml Inj 1,000 MG/100 ML BOTTLE IV.CONT PRN (00:39)
[2018-06-11] MEDS: NUTRISOURCE FIBER G-TUBE SCH ×2 (00:40→08:54)
[2018-06-11] MEDS: Insulin NovoLIN Regular Correctional Sugar Inj SQ SCH ×5 (00:43→16:17)
[2018-06-11] MEDS: Oral Hygiene Kit OROPHARYNG SCH ×4 (04:22→16:17)
[2018-06-11 05:27] LABS: Hematocrit 35.6 % (39.0-51.0); Hemoglobin 12.2 gm/dL (13.0-17.0); Mean Corpuscular HGB Conc 34.2 % (32.0-36.0); Mean Corpuscular Hemoglobin 33.4 pg (27.0-34.0); Mean Corpuscular Volume 97.6 fL (80.0-100.0); Mean Platelet Volume 9.6 fL (7.0-11.0); Platelet Count 129 th/mm3 (150-450); Red Blood Count 3.65 mil/mm3 (4.50-5.90); Red Cell Distribution Width 15.2 % (11.6-17.2); White Blood Count 7.9 th/mm3 (4.0-11.0)
[2018-06-11 05:50] LABS: Anion Gap 8 meq/L (5-15); Blood Urea Nitrogen 15 mg/dL (7-18); Calcium 8.1 mg/dL (8.5-10.1); Chloride 116 meq/L (98-107); Glomerular Filtration Rate Greater Than 89 mL/min (>89); Glucose,Random 184 mg/dL (74-106); Phosphorus 2.3 mg/dL (2.5-4.9); Potassium 3.4 meq/L (3.5-5.1); Sodium 148 meq/L (136-145)
[2018-06-11] MEDS: WATER IV.SIG SCH ×2 (06:55)
[2018-06-11] MEDS: DEXTROSE 5% IV.SIG SCH ×2 (06:55)
[2018-06-11] MEDS: SODIUM ACETATE IV.SIG SCH ×2 (06:55)
[2018-06-11] MEDS: Sertraline 100 MG Tablet PO SCH (08:53)
[2018-06-11] MEDS: Insulin Detemir Inj 1,000 UNIT/10 ML Vial SQ SCH (08:53)
[2018-06-11] MEDS: Chlorhexidine 0.12% Oral Kit 15 ML UDC OROPHARYNG SCH (08:53)
[2018-06-11] MEDS: amLODIPine 10 MG Tablet PO SCH (08:53)
[2018-06-11] MEDS: Senna/Docusate Sodium 8.6/50 MG Tablet PO SCH (08:53)
[2018-06-11] MEDS: Pantoprazole Inj 40 MG Vial IV.PUSH SCH (08:54)
[2018-06-11] MEDS: Potassium Chlor 40 mEq Premix 40 MEQ/100 ML PIGGYBACK IV.SIG PRN (10:21)
[2018-06-11 13:45] LABS: ABG Base Excess -1.4 mmol/L (-2-2); ABG PCO2 34 mmHg (38-42); ABG PO2 77 mmHG (61-120)
[2018-06-11] MEDS: Labetalol HCl Inj 100 MG/20 ML Vial IV.PUSH PRN (17:22)
--- NOTE | 2018-06-11 19:38 | P.PNCC ---
Subjective Subjective Remarks/Hospital Course: 58-year-old male with a medical history significant for diabetes mellitus who recently underwent decompression surgery for lumbar spine on 05/19 and was subsequently discharged on 05/[address] Huff. He underwent a follow-up as outpatient with Dr. Huff's office on 06/05. He reportedly had stopped taking his insulin 2 days back and he developed worsening mental status since yesterday and was brought to the ER by his today where he was noted to be confused and disoriented and appeared dehydrated. His fingerstick glucose was 500s, ABG done in the ER revealed severe metabolic acidosis. BMP was still pending when I evaluated the patient. He had received IV insulin and was to be started on an insulin drip at the time of my evaluation. He had also received 2 L normal saline bolus and was getting his third liter IV fluid. Patient was awake and alert however could not tell me the date month or year. He could not tell me that he was in the hospital though he was following commands appropriately. He was slightly tachypneic however did not appear to be in any acute distress. ER and diagnosed patient with diabetic ketoacidosis earlier and has instituted DKA protocol. SUBJECTIVE: 06/07: Quite confused. Knows name and date of . No EtOH history. Site of L3/4 and L4/5 hemilaminectomy with erythema but no drainage. Phosphorus being replaced. 06/08: obtunded this AM. febrile to 104F. leukopenic. lumbar incision has opened a bit at the skin edges. some erythema. ?mild fluctuance. no purulence noted. ABG demonstrates compensated metabolic acidosis, but no longer in DKA- now in severe sepsis and acidotic from tissue hypoperfusion. emergently intubated for rapidly declining mental status as well as worsening respiratory failure (see separate procedure note for details). emergent MRI brain/total spine demonstrates pachymeningitis of the brain, no evidence of spinal abscess. started on vanc/cefepime/flagyl. cultures sent. increased ivf given persistent acidosis. hyperglycemia remains an ongoing problem and remains on insulin drip. discussed with on-call neurosurgeon who will eval for Dr. Huff and make additional recommendations. Discussed with IR team and patient has just received prophylactic lovenox, but will plan on IR guided LP away from lumbar incisional site for CSF for culture and cell count. 06/09: remains intubated and encephalopathic. remains febrile as well. wbc improving and leukopenia resolving. plan for LP today. electrolyte disturbances remain including severe hypokalemia and hypophosphatemia despite aggressive replacement: unable to replace K fast enough through PIV, and will require central venous access. cultures pending. 06/10: remains intubated. LP done yesterday with borderline low glucose (125 when systemic ~250), elevated protein. cultures pending. sodium continues to rise despite enteral free water replacement. 06/11: awake, alert. passed SBT. extubated. CSF cultures NGTD x 48h. Objective Vital Signs / I&O: Vital Signs 06/10/18 20:00 06/10/18 20:23 06/10/18 20:26 Temperature 36.5 C Pulse Rate 69 84 Respiratory Rate 18 18 18 Blood Pressure 142/83 H Pulse Oximetry 100 100 06/10/18 22:00 06/11/18 00:00 06/11/18 00:07 Temperature 36.7 C Pulse Rate 66 66 Respiratory Rate 18 18 Blood Pressure 130/79 Pulse Oximetry 100 100 06/11/18 02:00 06/11/18 04:00 06/11/18 04:27 Temperature 36.6 C Pulse Rate 72 62 Respiratory Rate 18 18 Blood Pressure 131/79 Pulse Oximetry 100 100 06/11/18 06:00 06/11/18 08:00 06/11/18 08:36 Temperature 37.2 C Pulse Rate 58 L 70 78 Respiratory Rate 18 18 Blood Pressure 174/98 H Pulse Oximetry 100 98 06/11/18 10:00 06/11/18 12:00 06/11/18 12:06 Temperature 36.7 C Pulse Rate 71 95 H Respiratory Rate 22 20 Blood Pressure 201/98 H Pulse Oximetry 98 100 06/11/18 13:00 06/11/18 13:10 06/11/18 14:00 Temperature Pulse Rate 105 H 97 H Respiratory Rate 17 Blood Pressure Pulse Oximetry 96 06/11/18 14:06 06/11/18 16:00 06/11/18 18:00 Temperature 36.7 C 36.9 C Pulse Rate 95 H 87 82 Respiratory Rate 22 24 Blood Pressure 201/98 H 166/93 H Pulse Oximetry 98 96 Intake & Output 06/11/18 06/11/18 06/12/18 06:59 18:59 06:59 Intake Total 2408 / 2408 1750 / 1750 Output Total 1300 / 1300 4050 / 4050 Balance 1108 / 1108 -2300 / -2300 Weight 91.5 kg Intake: IV 1210 / 1210 1180 / 1180 Diprivan 1000 mg/100 ml Inj 1, 100 / 100 80 / 80 000 mg In 100 ml @ 5 MCG/KG/MIN 2.664 mls/hr IV.CONT TITRATE PRN Rx#:[id number] Maxipime Inj 2,000 MG In NS Inj 300 / 300 100 ML @ 200 mls/hr IV.SIG Q8H FRANKY Rx#:[id number] KCl 40 mEq Premix Inj 40 meq In 100 / 100 100 ml @ 25 mls/hr IV.SIG UNSCH PRN Rx#:[id number] Potassium Phosphate Inj 30 MMOL 260 / 260 In NS Inj 250 ML @ 42 mls/hr IV.SIG UNSCH PRN Rx#:[id number] Sodium Acetate Inj 40 MEQ In 1010 / 1010 D5W Inj 1,000 ML @ 100 mls/hr IV.SIG .Q10H6M FRANKY Rx#:[id number] fentaNYL 10 mcg/mL Premix Drip 240 / 240 2,500 mcg In 250 ml @ 50 MCG/HR 5 mls/hr IV.SIG TITRATE PRN Rx #:[id number] Flagyl 500 MG Inj 100 ML @ 100 100 / 100 200 / 200 mls/hr IV.SIG Q6H FRANKY Rx#: [id number] Oral 270 / 270 Tube Feeding 298 / 298 Water Bolus Amount 900 / 900 300 / 300 Output: Urine Amount (Catheter) 1300 / 1300 4050 / 4050 Indwelling Urethral Catheter 1300 / 1300 4050 / 4050 Other: Date of Last Bowel Movement 06/09/18 06/11/18 # Bowel Movements 2 Result Diagrams: 06/11/18 04:47 06/11/18 04:47 Objective Remarks: GENERAL: 58-year-old male recently extubated, awake, follows commands. SKIN: Warm and dry. HEAD: Atraumatic. Normocephalic. EYES: Pupils equal and round. No scleral icterus. No injection or drainage. ENT: No nasal bleeding or discharge. Mucous membranes pink and moist. NECK: Trachea midline. No JVD. CARDIOVASCULAR: tachycardic rate, regular rhythm. sinus. RESPIRATORY: nc o2. equal chest rise. vigorous cough. GASTROINTESTINAL: Abdomen soft, non-tender, slightly protuberant. MUSCULOSKELETAL: Extremities without clubbing, cyanosis, or edema. Incision site lumbar region approximately 6 cm with slight erythema surrounding. Not painful to palpation. No purulence. NEUROLOGICAL: awake, RASS -1. follows commands. Assessment and Plan - Assessment and Plan Plan: Assessment: 58yM s/p recent lumbar laminectomy now with DKA and septic shock with new multiorgan failure and respiratory failure. clinically improving. will d/c vancomycin and flagyl and keep cefepime for now. Neuro/Psych: Acute metabolic encephalopathy Possible acute meningitis Depression CT Brain 06/06 revealed no acute intracranial findings Home medication of hydrocodone/acetaminophen 10/325 1 tab every 4 hours as needed pain Okay to resume sertraline 100 mg daily for depression Acetaminophen 650 p.o. every 6 hours as needed fever abx as below frequent neuro checks avoid long-acting sedatives EEG negative for seizures. CV: Hypertension Septic shock- resolved. Home medications are amlodipine 10 mg daily. Patient is also on valsartan 80 mg daily. This is held due to recall As needed labetalol, Nitropaste ordered off nicardipine. Resp: Acute hypoxic and hypercarbic respiratory failure- resolving. Healthcare associated aspiration pneumonia likely secondary to sepsis and worsening metabolic acidosis broad spectrum abx hob elevated nebs wean fio2 for goal spo2 > 90% pulm toilet GI: continue tube feeds nutrition consult for goal. swallow eval. Pantoprazole for GI prophylaxis. On omeprazole 20 mg daily at home. Docusate sodium/senna 1 tablet twice daily for bowel regimen : The catheter was replaced due to severe agitation and accurate I's and O's in a diabetic ketoacidosis patient Endo: DKA - resolved diabetes mellitus uncontrolled Levemir 20 units SQ daily q4h high dose SSI Heme: Macrocytosis ID: Septic Shock- resolved Possible Meningitis HCAP aspiration pneumonia d/c vanc and flagyl continue Cefepime 2gm iv q8h blood cultures 06/08 NGTD CSF culture 06/09 NGTD MSK: 05/19 left L3/4 and L4/5 hemilaminectomy/mesial facetectomy/foraminotomy by Dr. Huff reconsulted neurosurgery: non-operative management at this time. FEN: severe persistent Hypokalemia- resolving. severe hypophosphatemia- resolving. Hypernatremia- worsening Hyperchloremia Acute ceu-qtqzm-sdp metabolic acidosis Free water deficit ICU electrolyte protocol continue enteral free water flushes 300mL po q4h trend electrolytes. Access - 06/09 left SC TLC - mcgrath Prophylaxis- -GI -Pantoprazole - SCD/heparin subcu
[2018-06-12] MEDS: Insulin NovoLIN Regular Correctional Sugar Inj SQ SCH ×7 (00:42→20:50)
[2018-06-12] MEDS: Chlorhexidine 0.12% Oral Kit 15 ML UDC OROPHARYNG SCH ×3 (00:43→20:50)
[2018-06-12] MEDS: NUTRISOURCE FIBER G-TUBE SCH ×3 (00:44→20:50)
[2018-06-12] MEDS: Senna/Docusate Sodium 8.6/50 MG Tablet PO SCH ×3 (00:44→20:51)
[2018-06-12] MEDS ORDERED: SODIUM ACETATE IV.SIG SCH ×2 (02:00)
[2018-06-12] MEDS ORDERED: WATER IV.SIG SCH ×2 (02:00)
[2018-06-12] MEDS ORDERED: DEXTROSE 5% IV.SIG SCH ×2 (02:00)
[2018-06-12] MEDS: WATER IV.SIG SCH ×2 (05:01)
[2018-06-12] MEDS: SODIUM ACETATE IV.SIG SCH ×2 (05:01)
[2018-06-12] MEDS: DEXTROSE 5% IV.SIG SCH ×2 (05:01)
[2018-06-12] MEDS: Oral Hygiene Kit OROPHARYNG SCH ×4 (06:56→15:55)
[2018-06-12 07:41] LABS: Anion Gap 11 meq/L (5-15); Blood Urea Nitrogen 11 mg/dL (7-18); Calcium 8.1 mg/dL (8.5-10.1); Carbon Dioxide 26.7 meq/L (21.0-32.0); Chloride 106 meq/L (98-107); Glomerular Filtration Rate Greater Than 89 mL/min (>89); Glucose,Random 192 mg/dL (74-106); Phosphorus 3.6 mg/dL (2.5-4.9); Potassium 3.6 meq/L (3.5-5.1); Sodium 144 meq/L (136-145)
[2018-06-12 08:00] LABS: Hematocrit 39.5 % (39.0-51.0); Hemoglobin 13.7 gm/dL (13.0-17.0); Mean Corpuscular HGB Conc 34.6 % (32.0-36.0); Mean Corpuscular Hemoglobin 33.3 pg (27.0-34.0); Mean Corpuscular Volume 96.1 fL (80.0-100.0); Mean Platelet Volume 10.9 fL (7.0-11.0); Platelet Count 133 th/mm3 (150-450); Red Blood Count 4.11 mil/mm3 (4.50-5.90); Red Cell Distribution Width 14.9 % (11.6-17.2); White Blood Count 6.6 th/mm3 (4.0-11.0)
[2018-06-12] MEDS: Pantoprazole Inj 40 MG Vial IV.PUSH SCH (08:15)
[2018-06-12] MEDS: Sertraline 100 MG Tablet PO SCH (08:16)
[2018-06-12] MEDS: amLODIPine 10 MG Tablet PO SCH (08:16)
[2018-06-12] MEDS: Insulin Detemir Inj 1,000 UNIT/10 ML Vial SQ SCH (08:16)
--- NOTE | 2018-06-12 14:57 | P.PNCC ---
Subjective Subjective Remarks/Hospital Course: 58-year-old male with a medical history significant for diabetes mellitus who recently underwent decompression surgery for lumbar spine on 05/19 and was subsequently discharged on 05/[address] Huff. He underwent a follow-up as outpatient with Dr. Huff's office on 06/05. He reportedly had stopped taking his insulin 2 days back and he developed worsening mental status since yesterday and was brought to the ER by his today where he was noted to be confused and disoriented and appeared dehydrated. His fingerstick glucose was 500s, ABG done in the ER revealed severe metabolic acidosis. BMP was still pending when I evaluated the patient. He had received IV insulin and was to be started on an insulin drip at the time of my evaluation. He had also received 2 L normal saline bolus and was getting his third liter IV fluid. Patient was awake and alert however could not tell me the date month or year. He could not tell me that he was in the hospital though he was following commands appropriately. He was slightly tachypneic however did not appear to be in any acute distress. ER and diagnosed patient with diabetic ketoacidosis earlier and has instituted DKA protocol. SUBJECTIVE: 06/07: Quite confused. Knows name and date of . No EtOH history. Site of L3/4 and L4/5 hemilaminectomy with erythema but no drainage. Phosphorus being replaced. 06/08: obtunded this AM. febrile to 104F. leukopenic. lumbar incision has opened a bit at the skin edges. some erythema. ?mild fluctuance. no purulence noted. ABG demonstrates compensated metabolic acidosis, but no longer in DKA- now in severe sepsis and acidotic from tissue hypoperfusion. emergently intubated for rapidly declining mental status as well as worsening respiratory failure (see separate procedure note for details). emergent MRI brain/total spine demonstrates pachymeningitis of the brain, no evidence of spinal abscess. started on vanc/cefepime/flagyl. cultures sent. increased ivf given persistent acidosis. hyperglycemia remains an ongoing problem and remains on insulin drip. discussed with on-call neurosurgeon who will eval for Dr. Huff and make additional recommendations. Discussed with IR team and patient has just received prophylactic lovenox, but will plan on IR guided LP away from lumbar incisional site for CSF for culture and cell count. 06/09: remains intubated and encephalopathic. remains febrile as well. wbc improving and leukopenia resolving. plan for LP today. electrolyte disturbances remain including severe hypokalemia and hypophosphatemia despite aggressive replacement: unable to replace K fast enough through PIV, and will require central venous access. cultures pending. 06/10: remains intubated. LP done yesterday with borderline low glucose (125 when systemic ~250), elevated protein. cultures pending. sodium continues to rise despite enteral free water replacement. 06/11: awake, alert. passed SBT. extubated. CSF cultures NGTD x 48h. 06/12: clinically improving. stable. passed swallow eval. Objective Vital Signs / I&O: Vital Signs 06/11/18 16:00 06/11/18 18:00 06/11/18 20:00 Temperature 36.9 C 37.1 C Pulse Rate 87 82 101 H Respiratory Rate 24 22 Blood Pressure 166/93 H 159/86 H Pulse Oximetry 96 95 06/11/18 20:32 06/11/18 22:00 06/12/18 00:00 Temperature 36.4 C Pulse Rate 83 68 Respiratory Rate 19 Blood Pressure 160/88 H Pulse Oximetry 95 99 06/12/18 02:00 06/12/18 04:00 06/12/18 06:00 Temperature 36.2 C L Pulse Rate 75 74 69 Respiratory Rate 18 Blood Pressure 168/90 H Pulse Oximetry 97 06/12/18 08:05 06/12/18 10:00 06/12/18 10:01 Temperature 34.7 C L Pulse Rate 68 85 91 H Respiratory Rate 19 27 H 23 Blood Pressure 136/80 Pulse Oximetry 96 84 L 76 L 06/12/18 12:00 Temperature 36.9 C Pulse Rate 75 Respiratory Rate 21 Blood Pressure 146/77 H Pulse Oximetry 100 Intake & Output 06/11/18 06/12/18 06/12/18 18:59 06:59 18:59 Intake Total 1750 / 1750 1690 / 1690 Output Total 4050 / 4050 1850 / 1850 Balance -2300 / -2300 -160 / -160 Weight 87.9 kg Intake: IV 1180 / 1180 1210 / 1210 Diprivan 1000 mg/100 ml Inj 1, 80 / 80 000 mg In 100 ml @ 5 MCG/KG/MIN 2.664 mls/hr IV.CONT TITRATE PRN Rx#:[id number] Maxipime Inj 2,000 MG In NS Inj 300 / 300 200 / 200 100 ML @ 200 mls/hr IV.SIG Q8H [facility] Rx#:[id number] KCl 40 mEq Premix Inj 40 meq In 100 / 100 100 ml @ 25 mls/hr IV.SIG UNSCH PRN Rx#:[id number] Potassium Phosphate Inj 30 MMOL 260 / 260 In NS Inj 250 ML @ 42 mls/hr IV.SIG UNSCH PRN Rx#:[id number] Sodium Acetate Inj 40 MEQ In 1010 / 1010 D5W Inj 1,000 ML @ 50 mls/hr IV .SIG .[id number] [facility] Rx#:[id number] fentaNYL 10 mcg/mL Premix Drip 240 / 240 2,500 mcg In 250 ml @ 50 MCG/HR 5 mls/hr IV.SIG TITRATE PRN Rx #:[id number] Flagyl 500 MG Inj 100 ML @ 100 200 / 200 mls/hr IV.SIG Q6H [facility] Rx#: [id number] Oral 270 / 270 480 / 480 Water Bolus Amount 300 / 300 Output: Urine Amount (Catheter) 4050 / 4050 1850 / 1850 Indwelling Urethral Catheter 4050 / 4050 1850 / 1850 Other: Date of Last Bowel Movement 06/11/18 06/11/18 06/12/18 # Bowel Movements 2 Result Diagrams: 06/12/18 05:59 06/12/18 05:59 Objective Remarks: GENERAL: 58-year-old male awake, follows commands. SKIN: Warm and dry. HEAD: Atraumatic. Normocephalic. EYES: Pupils equal and round. No scleral icterus. No injection or drainage. ENT: No nasal bleeding or discharge. Mucous membranes pink and moist. NECK: Trachea midline. No JVD. CARDIOVASCULAR: tachycardic rate, regular rhythm. sinus. RESPIRATORY: nc o2. equal chest rise. vigorous cough. GASTROINTESTINAL: Abdomen soft, non-tender, slightly protuberant. MUSCULOSKELETAL: Extremities without clubbing, cyanosis, or edema. Incision site lumbar region approximately 6 cm with slight erythema surrounding. Not painful to palpation. No purulence. NEUROLOGICAL: awake, RASS 0. follows commands. Assessment and Plan - Assessment and Plan Plan: Assessment: 58yM s/p recent lumbar laminectomy with DKA and septic shock with new multiorgan failure and respiratory failure. clinically improving. de- escalate cefepime to rocephin 2gm iv q12h. Abx plan: patient needs to be covered empirically for meningitis for a 2-week course. will need total 2 week course of Rocephin IV q12h (anticipated stop date 06/22/2018) Neuro/Psych: Acute metabolic encephalopathy Probable acute meningitis Depression CT Brain 06/06 revealed no acute intracranial findings Home medication of hydrocodone/acetaminophen 10/325 1 tab every 4 hours as needed pain sertraline 100 mg daily for depression Acetaminophen 650 p.o. every 6 hours as needed fever abx as below frequent neuro checks avoid long-acting sedatives EEG negative for seizures. CV: Hypertension Septic shock- resolved. Home medications are amlodipine 10 mg daily. Patient is also on valsartan 80 mg daily. This is held due to recall As needed labetalol off nicardipine. Resp: Acute hypoxic and hypercarbic respiratory failure- resolved Healthcare associated aspiration pneumonia rocephin hob elevated nebs wean fio2 for goal spo2 > 90% pulm toilet GI: continue tube feeds nutrition consult for goal. swallow eval. Pantoprazole for GI prophylaxis. On omeprazole 20 mg daily at home. Docusate sodium/senna 1 tablet twice daily for bowel regimen : d/c mcgrath. Endo: DKA - resolved diabetes mellitus uncontrolled Levemir 20 units SQ daily q4h high dose SSI Heme: Macrocytosis ID: Septic Shock- resolved Probable Meningitis HCAP aspiration pneumonia d/c cefepime start rocephin 2gm iv q12h. will need 7 day course for aspiration pneumonia, but a total of 14 day course for meningitis coverage. anticipated stop date 2017. MSK: 05/19 left L3/4 and L4/5 hemilaminectomy/mesial facetectomy/foraminotomy by Dr. Huff reconsulted neurosurgery: non-operative management at this time. FEN: severe persistent Hypokalemia- resolved severe hypophosphatemia- resolved Hypernatremia- resolving Hyperchloremia- resolving. Acute [id number] metabolic acidosis- resolved Free water deficit- resolving. ICU electrolyte protocol encourage PO free water intake. trend electrolytes. Access - 06/09 left SC TLC: d/c today. - mcgrath: d/c today Prophylaxis- -GI -Pantoprazole - SCD/heparin subcu dispo: transfer to floor. consult hospitalist service.
[2018-06-12] MEDS: Heparin - SQ 10,000 UNITS/ML Vial SQ SCH ×2 (20:51→22:13)
[2018-06-12] MEDS: Acetaminophen 325 MG Tablet PO PRN (20:51)
[2018-06-13] MEDS: Insulin NovoLIN Regular Correctional Sugar Inj SQ SCH ×7 (05:16→23:46)
[2018-06-13] MEDS: Heparin - SQ 10,000 UNITS/ML Vial SQ SCH ×3 (05:16→22:51)
[2018-06-13] MEDS: Oral Hygiene Kit OROPHARYNG SCH ×5 (05:16→23:46)
[2018-06-13] MEDS: Acetaminophen 325 MG Tablet PO PRN (05:21)
[2018-06-13 07:23] LABS: Hematocrit 35.5 % (39.0-51.0); Hemoglobin 11.9 gm/dL (13.0-17.0); Mean Corpuscular HGB Conc 33.7 % (32.0-36.0); Mean Corpuscular Hemoglobin 32.4 pg (27.0-34.0); Mean Corpuscular Volume 96.2 fL (80.0-100.0); Mean Platelet Volume 9.4 fL (7.0-11.0); Platelet Count 183 th/mm3 (150-450); Red Blood Count 3.69 mil/mm3 (4.50-5.90); Red Cell Distribution Width 14.1 % (11.6-17.2); White Blood Count 7.7 th/mm3 (4.0-11.0)
[2018-06-13 07:56] LABS: Anion Gap 12 meq/L (5-15); Blood Urea Nitrogen 9 mg/dL (7-18); Calcium 8.1 mg/dL (8.5-10.1); Carbon Dioxide 25.8 meq/L (21.0-32.0); Chloride 104 meq/L (98-107); Glomerular Filtration Rate Greater Than 89 mL/min (>89); Glucose,Random 154 mg/dL (74-106); Phosphorus 3.2 mg/dL (2.5-4.9); Sodium 142 meq/L (136-145)
[2018-06-13 08:02] LABS: Potassium 2.9 meq/L (3.5-5.1)
--- NOTE | 2018-06-13 09:17 | P.PNIM ---
Subjective Interval history: Pt overall is feeling better today He complains of a continued dry cough, no sputum production Denies any post-nasal drip Tolerating some oral intake Physical Exam Vital signs: Vital Signs 06/12/18 10:00 06/12/18 10:01 06/12/18 12:00 Temperature 98.5 F Pulse Rate 85 91 H 75 Respiratory Rate 27 H 23 21 Blood Pressure 136/80 146/77 H Pulse Oximetry 84 L 76 L 100 06/12/18 16:00 06/12/18 20:00 06/13/18 00:00 Temperature 98.2 F 98.4 F 98.7 F Pulse Rate 74 57 L Respiratory Rate 20 20 Blood Pressure 156/83 H 155/79 H Pulse Oximetry 94 L 96 06/13/18 04:00 06/13/18 08:00 Temperature 98 F 97.1 F L Pulse Rate 76 100 H Respiratory Rate 18 16 Blood Pressure 146/85 H 112/65 Pulse Oximetry 94 L 97 Intake & Output 06/12/18 06/13/18 06/13/18 18:59 06:59 18:59 Intake Total 1120 / 1120 100 / 100 Output Total 1000 / 1000 1400 / 1400 Balance 120 / 120 -1300 / -1300 Weight 88.8 kg Intake: IV 300 / 300 100 / 100 Maxipime Inj 2,000 MG In NS Inj 200 / 200 100 ML @ 200 mls/hr IV.SIG Q8H [facility] Rx#:[id number] Rocephin Inj 2,000 MG In NS Inj 100 / 100 100 / 100 100 ML @ 200 mls/hr IV.SIG Q12H [facility] Rx#:[id number] Oral 820 / 820 Output: Urine 600 / 600 1400 / 1400 Urine Amount (Catheter) 400 / 400 Indwelling Urethral Catheter 400 / 400 Other: Date of Last Bowel Movement 06/12/18 # Bowel Movements 6 Narrative: General: NAD, AAOx3 Chest: CTA Cardiac: regular Abd: +BS, soft ND Ext: No edema - Urinary Catheter Management Indwelling Urethral Catheter Cath placed during this visit: yes, but has since been removed by the nurse Reason for continuing: Decision to DC catheter Insertion date: 06/06/18 Insertion time: 23:50 Removal date: 06/12/18 Removal time: 08:00 Results - Labs CBC & Chem 7: 06/14/18 04:17 06/14/18 04:17 Laboratory Results - last 24 hr 06/09/18 06/09/18 06/12/18 15:50 15:50 05:59 WBC 6.6 RBC 4.11 L Hgb 13.7 Hct 39.5 MCV 96.1 MCH 33.3 MCHC 34.6 RDW 14.9 Plt Count 133 L MPV 10.9 Sodium Potassium Chloride Carbon Dioxide Anion Gap BUN Creatinine Estimated GFR POC Glucose Random Glucose Calcium Phosphorus CSF VDRL Non-reactive CSF Cryptococcus Ag Not detected 06/12/18 06/12/18 06/12/18 11:40 16:22 19:49 WBC RBC Hgb Hct MCV MCH MCHC RDW Plt Count MPV Sodium Potassium Chloride Carbon Dioxide Anion Gap BUN Creatinine Estimated GFR POC Glucose 131 H 78 82 Random Glucose Calcium Phosphorus CSF VDRL CSF Cryptococcus Ag 06/13/18 06/13/18 06/13/18 00:45 01:19 01:52 WBC RBC Hgb Hct MCV MCH MCHC RDW Plt Count MPV Sodium Potassium Chloride Carbon Dioxide Anion Gap BUN Creatinine Estimated GFR POC Glucose 60 L 69 112 H Random Glucose Calcium Phosphorus CSF VDRL CSF Cryptococcus Ag 06/13/18 06/13/18 06/13/18 05:15 06:40 06:40 WBC 7.7 RBC 3.69 L Hgb 11.9 L Hct 35.5 L MCV 96.2 MCH 32.4 MCHC 33.7 RDW 14.1 Plt Count 183 D MPV 9.4 Sodium 142 Potassium 2.9 L* Chloride 104 Carbon Dioxide 25.8 Anion Gap 12 BUN 9 Creatinine 0.62 Estimated GFR Greater than 89 POC Glucose 142 H Random Glucose 154 H Calcium 8.1 L Phosphorus 3.2 CSF VDRL CSF Cryptococcus Ag 06/13/18 07:42 WBC RBC Hgb Hct MCV MCH MCHC RDW Plt Count MPV Sodium Potassium Chloride Carbon Dioxide Anion Gap BUN Creatinine Estimated GFR POC Glucose 147 H Random Glucose Calcium Phosphorus CSF VDRL CSF Cryptococcus Ag Microbiology 06/09/18 15:50 Lumbar Puncture Gram Stain - Final 06/09/18 15:50 Lumbar Puncture CSF Culture - Final No growth in 72 hours 06/08/18 15:40 Blood - Peripheral Aerobic Blood Culture - Preliminary No growth in 4 days 06/08/18 15:40 Blood - Peripheral Anaerobic Blood Culture - Preliminary No growth in 4 days 06/08/18 16:00 Blood - Peripheral Aerobic Blood Culture - Preliminary No growth in 4 days 06/08/18 16:00 Blood - Peripheral Anaerobic Blood Culture - Preliminary No growth in 4 days - Imaging Chest X-Ray 06/06/18 18:57 CONCLUSION: The lungs are clear. Head CT 08 18:57 CONCLUSION: 1. Negative noncontrast CT brain. . Abdomen X-Ray 06/07/18 00:00 CONCLUSION: No concerning radiopaque foreign body is present that would preclude MRI. Cervical Spine MRI 06/08/18 00:00 CONCLUSION: 1. Degenerative change at the C5-C6 and C6-C7 levels as described above. 2. Increased signal suggesting edema in the posterior soft tissues of the nasopharynx, oropharynx and hypopharynx without focal fluid collection. Head MRI 06/08/18 00:00 CONCLUSION: 1. Mild degree of dural thickening and enhancement consistent with pachymeningitis, nonspecific. 2. No acute or focal parenchymal brain abnormalities. Lumbar Spine MRI 06/08/18 00:00 CONCLUSION: Minimal left sided epidural fluid and minimal fluid along the operative tract in the left paramedian back at the L4-5 level with moderate surrounding soft tissue edema and enhancement. Thoracic Spine MRI 06/08/18 00:00 CONCLUSION: Negative thoracic spine MRI examination. Chest X-Ray 06/08/18 09:48 CONCLUSION: 1. ETT in good position. NGT in the stomach. 2. Low lung volumes with minimal left lung base atelectasis. Lumbar Puncture Fluoroscopy 06/09/18 00:00 CONCLUSION: 1. Uncomplicated fluoroscopically guided lumbar puncture. Chest X-Ray 06/09/18 09:40 CONCLUSION: 1. Left subclavian central line distal tip in the superior vena cava. No pneumothorax is visualized. 2. Under inflation with bibasilar subsegmental atelectasis. Assessment and Plan - Assessment (1) Aspiration pneumonia Code(s): J69.0 - Pneumonitis due to inhalation of food and vomit Status: Acute (2) Acute metabolic encephalopathy Code(s): G93.41 - Metabolic encephalopathy Status: Acute Plan: Acute metabolic encephalopathy, improving. Probable acute meningitis - Pt is a 58 y/o male with diabetes mellitus who recently underwent decompression surgery of the lumbar spine, left L3/4 and L4/5 hemilaminectomy/ mesial facetectomy/foraminotomy by Dr. Huff on 05/19, and was subsequently discharged on 05/[address] Huff. He was seen in follow-up as outpatient with Dr. Huff on 06/05. He developed worsening mental status on 06/06/18 and was brought to the ER where he was noted to be confused and disoriented and appeared dehydrated. His fingerstick glucose was 500s, ABG done in the ER revealed severe metabolic acidosis. He was admitted to ICU and was started on an insulin drip and IVF. - CT Brain (06/06) revealed no acute intracranial findings - Pt developed fevers on 06/07 which went as high as 103 degrees on 06/08. Pt was felt to be in severe sepsis and acidotic from tissue hypoperfusion and was emergently intubated on 06/08/18 for rapidly declining mental status and worsening respiratory failure. - MRI Brain (06/08/18) --> Mild degree of dural thickening and enhancement consistent with pachymeningitis, nonspecific. No acute or focal parenchymal brain abnormalities - MRI Lumbar spine (06/08/18) --> Minimal left sided epidural fluid and minimal fluid along the operative tract in the left paramedian back at the L4-5 level with moderate surrounding soft tissue edema and enhancement. - MRI of the cervical and thoracic spine were negative for abscess - Pt was started on Vanc/Cefepime/Flagyl on 06/08. - Blood cultures (06/06) with NGTD - Blood cultures (06/08) with NGTD - Pt was seen by on-call Neurosurgeon, Dr. Ba Aviles, on 06/08. He felt that no surgical intervention was felt to be necessary regarding the previous lumbar spine surgery as there was no significant fluid collection noted on MRI. He also noted that the dural thickening/enhancement noted on MRI could be suggestive of either meningitis but also can occur in the setting of CSF leak s/ p surgery. - Lumbar puncture was performed on 06/08 with culture being negative. CSF Glucose was 126, CSF lactic acid 3.2, CSF total protein 61.0, CSF VDRL negative , CSF cryptococcus Ag not detected, CSF Herpes I DNA and II DNA negative - EEG (06/10/18) negative for seizures. - Pt was able to be extubated on 06/11/18 - His antibiotics were de-escalated to Rocephin 2gm iv q12h on 06/12/18 and recommended to continue this through 06/22/18 to cover empirically for meningitis with a 2-week course. - Cont. [place] 10/325 Q4H as needed pain - DVT prophylaxis with Heparin 5000units SQ Q8H Hypertension - Pt was resumed on home medication, Amlodipine 10 mg daily. - Patient is also on valsartan 80 mg daily but this is held due to recall - PRN Clonidine Acute hypoxic and hypercarbic respiratory failure- resolved Healthcare associated aspiration pneumonia - Sputum culture (06/08) --> Staph aureus, Klebsiella pneumoniae, and Beta strep not group A - Pt is on Rocephin - Albuterol nebs PRN - Wean supplemental O2 for goal spo2 > 90% - Pulm toilet DKA - resolved Diabetes mellitus, uncontrolled, Hgb A1C 9.8% on 06/07 - Levemir 20 units SQ daily - NovoLog SSI - Accu checks Severe recurrent hypokalemia - Replace and monitor labs The exam, history, and the medical decision-making described in the above note were completed with the assistance of the mid-level provider. I reviewed and agree with the findings presented. I attest that I had a [id number] encounter with the patient on the same day, and personally performed and documented my assessment and findings in the medical record. dka resolved. being treated for aspiration pna and possible meningitis through . plan for picc and possible dc on Friday pt fell today. rib xray pending. ice for rodriguez hematoma. (3) HTN (hypertension) Code(s): I10 - Essential (primary) hypertension Status: Acute (4) Diabetes mellitus Code(s): E11.9 - Type 2 diabetes mellitus without complications Status: Acute (5) DKA (diabetic ketoacidoses) Code(s): E13.10 - Other specified diabetes mellitus with ketoacidosis without coma Status: Acute (6) Altered mental status Code(s): R41.82 - Altered mental status, unspecified Status: Acute (5) DKA (diabetic ketoacidoses) Qualifiers: Diabetes mellitus type: type 1 Diabetes mellitus complication detail: without coma Qualified Code(s): E10.10 - Type 1 diabetes mellitus with ketoacidosis without coma (6) Altered mental status Qualifiers: Altered mental status type: unspecified Qualified Code(s): R41.82 - Altered mental status, unspecified
[2018-06-13] MEDS: Insulin Detemir Inj 1,000 UNIT/10 ML Vial SQ SCH (09:23)
[2018-06-13] MEDS: Chlorhexidine 0.12% Oral Kit 15 ML UDC OROPHARYNG SCH ×2 (09:23→20:48)
[2018-06-13] MEDS: Senna/Docusate Sodium 8.6/50 MG Tablet PO SCH ×2 (09:24→20:49)
[2018-06-13] MEDS: Pantoprazole Inj 40 MG Vial IV.PUSH SCH (09:24)
[2018-06-13] MEDS: Sertraline 100 MG Tablet PO SCH (09:24)
[2018-06-13] MEDS: NUTRISOURCE FIBER G-TUBE SCH ×2 (09:25→20:48)
[2018-06-13] MEDS: amLODIPine 10 MG Tablet PO SCH (09:25)
[2018-06-13] MEDS ORDERED: Potassium Chloride 10 MEQ ER Capsule PO ONE (09:42)
[2018-06-13] MEDS: Benzonatate 100 MG Capsule PO PRN ×2 (13:04→20:49)
[2018-06-13] MEDS: Potassium Chloride 10 MEQ ER Capsule PO SCH ×2 (14:23→17:03)
--- NOTE | 2018-06-13 15:48 | XR ---
EXAM DATE: 06/13/2018 3:36 PM EDT AGE/SEX: 58 years / Male INDICATIONS: Right lower rib pain, post fall 2 days ago. CLINICAL DATA: This is the patient's initial encounter. Patient reports that signs and symptoms have been present for 4 - 6 days and indicates a pain score of 6/10. MEDICAL/SURGICAL HISTORY: Diabetes. Hypertension. Gastroesophageal reflux disease. Tonsillect josselin. COMPARISON: [facility] [place], CHEST 1V SINGLE AP, 06/09/2018. [facility] [place], CHEST 1V SINGLE AP, 06/08/2018. . FINDINGS: 5 views of the right ribs demonstrate a minimally displaced lateral ninth rib fracture. No other rib fracture is seen. No pneumothorax is identified. There is patchy opacity in the lungs bilaterally whi ch may represent atelectasis given the expiratory technique. CONCLUSION: Minimally displaced right lateral ninth rib fracture. No pneumothorax is visualized. Electronically signed by: Gerardo Russo MD 06/13/2018 3:46 PM EDT
[2018-06-14] MEDS: Heparin - SQ 10,000 UNITS/ML Vial SQ SCH ×3 (05:05→21:43)
[2018-06-14] MEDS: Oral Hygiene Kit OROPHARYNG SCH ×3 (05:06→17:07)
[2018-06-14] MEDS: Insulin NovoLIN Regular Correctional Sugar Inj SQ SCH ×2 (05:06→09:12)
[2018-06-14 05:18] LABS: Hematocrit 33.3 % (39.0-51.0); Hemoglobin 11.4 gm/dL (13.0-17.0); Mean Corpuscular HGB Conc 34.3 % (32.0-36.0); Mean Corpuscular Hemoglobin 32.7 pg (27.0-34.0); Mean Corpuscular Volume 95.3 fL (80.0-100.0); Mean Platelet Volume 9.3 fL (7.0-11.0); Platelet Count 222 th/mm3 (150-450); Red Cell Distribution Width 13.8 % (11.6-17.2); White Blood Count 5.9 th/mm3 (4.0-11.0)
[2018-06-14 06:27] LABS: Anion Gap 11 meq/L (5-15); Blood Urea Nitrogen 5 mg/dL (7-18); Chloride 106 meq/L (98-107); Glomerular Filtration Rate Greater Than 89 mL/min (>89); Glucose,Random 117 mg/dL (74-106); Sodium 144 meq/L (136-145)
[2018-06-14] MEDS: Pantoprazole Inj 40 MG Vial IV.PUSH SCH (09:12)
[2018-06-14] MEDS: Senna/Docusate Sodium 8.6/50 MG Tablet PO SCH ×2 (09:13→20:49)
[2018-06-14] MEDS: amLODIPine 10 MG Tablet PO SCH (09:13)
[2018-06-14] MEDS: Sertraline 100 MG Tablet PO SCH (09:13)
[2018-06-14] MEDS: Insulin Detemir Inj 1,000 UNIT/10 ML Vial SQ SCH (09:13)
[2018-06-14] MEDS: NUTRISOURCE FIBER G-TUBE SCH ×2 (09:14→20:49)
[2018-06-14] MEDS: Chlorhexidine 0.12% Oral Kit 15 ML UDC OROPHARYNG SCH ×2 (09:14→20:49)
[2018-06-14] MEDS ORDERED: Dextrose 50% in Water 50 ML Vial IV.PUSH PRN (10:23)
[2018-06-14] MEDS: Potassium Chloride 10 MEQ ER Capsule PO SCH ×3 (10:27→17:08)
--- NOTE | 2018-06-14 11:27 | P.PNIM ---
Subjective Interval history: Pt complains that he has right sided rib pain His cough is about the same, nonproductive Afebrile He also reported that both eyes started being itchy and draining last night and were crusted closed this morning. Pt is eating and drinking better today Physical Exam Vital signs: Vital Signs 06/13/18 12:00 06/13/18 14:00 06/13/18 15:12 Temperature 97.7 F 97.8 F 97.8 F Pulse Rate 88 90 80 Respiratory Rate 18 18 18 Blood Pressure 155/67 H 156/86 H 154/80 H Pulse Oximetry 96 96 92 L 06/13/18 20:00 06/14/18 00:00 06/14/18 04:00 Temperature 98.6 F 98.8 F 99 F Pulse Rate 74 74 72 Respiratory Rate 20 20 18 Blood Pressure 145/87 H 150/80 H 151/77 H Pulse Oximetry 96 93 L 93 L 06/14/18 08:00 Temperature 98.6 F Pulse Rate 91 H Respiratory Rate 18 Blood Pressure 116/71 Pulse Oximetry 95 Intake & Output 06/13/18 06/14/18 06/14/18 18:59 06:59 18:59 Intake Total 100 / 100 100 / 100 Output Total 500 / 500 700 / 700 Balance -400 / -400 -600 / -600 Weight 88.2 kg Intake: IV 100 / 100 100 / 100 Rocephin Inj 2,000 MG In NS Inj 100 / 100 100 / 100 100 ML @ 200 mls/hr IV.SIG Q12H [facility] Rx#:[id number] Output: Urine 500 / 500 700 / 700 Other: # Voids 3 Date of Last Bowel Movement 06/13/18 06/13/18 06/13/18 # Bowel Movements 2 Narrative: General: NAD, AAOx3 ENT: Bilateral eye with injection and drainage Chest: CTA, right sided rib pain with palpation. Cardiac: Regular Abd: +BS, soft ND Ext: No edema Back: Incision with granulation tissue noted, no pain or erythema or drainage from the incision. - Urinary Catheter Management Indwelling Urethral Catheter Cath placed during this visit: yes, but has since been removed by the nurse Reason for continuing: Decision to DC catheter Insertion date: 06/06/18 Insertion time: 23:50 Removal date: 06/12/18 Removal time: 08:00 Results - Labs CBC & Chem 7: 06/14/18 04:17 06/14/18 04:17 Laboratory Results - last 24 hr 06/13/18 06/13/18 06/13/18 12:53 16:13 19:14 WBC RBC Hgb Hct MCV MCH MCHC RDW Plt Count MPV Sodium Potassium 2.9 L* Chloride Carbon Dioxide Anion Gap BUN Creatinine Estimated GFR POC Glucose 249 H 177 H Random Glucose Calcium Phosphorus 06/13/18 06/13/18 06/13/18 19:16 22:54 23:44 WBC RBC Hgb Hct MCV MCH MCHC RDW Plt Count MPV Sodium Potassium Chloride Carbon Dioxide Anion Gap BUN Creatinine Estimated GFR POC Glucose 139 H 45 L* 137 H Random Glucose Calcium Phosphorus 06/14/18 06/14/18 06/14/18 04:17 04:17 04:27 WBC 5.9 RBC 3.50 L Hgb 11.4 L Hct 33.3 L MCV 95.3 MCH 32.7 MCHC 34.3 RDW 13.8 Plt Count 222 MPV 9.3 Sodium 144 Potassium 3.0 L Chloride 106 Carbon Dioxide 27.0 Anion Gap 11 BUN 5 L Creatinine 0.62 Estimated GFR Greater than 89 POC Glucose 110 Random Glucose 117 H Calcium 8.0 L Phosphorus 2.0 L D 06/14/18 07:58 WBC RBC Hgb Hct MCV MCH MCHC RDW Plt Count MPV Sodium Potassium Chloride Carbon Dioxide Anion Gap BUN Creatinine Estimated GFR POC Glucose 186 H Random Glucose Calcium Phosphorus Microbiology 06/08/18 15:40 Blood - Peripheral Aerobic Blood Culture - Final No growth in 5 days 06/08/18 15:40 Blood - Peripheral Anaerobic Blood Culture - Final No growth in 5 days 06/08/18 16:00 Blood - Peripheral Aerobic Blood Culture - Final No growth in 5 days 06/08/18 16:00 Blood - Peripheral Anaerobic Blood Culture - Final No growth in 5 days - Imaging Impressions Ribs X-Ray 06/13/18 00:00 CONCLUSION: Minimally displaced right lateral ninth rib fracture. No pneumothorax is visualized. Assessment and Plan - Assessment (1) Acute metabolic encephalopathy Code(s): G93.41 - Metabolic encephalopathy Status: Acute Plan: Acute metabolic encephalopathy, improving. Probable acute meningitis - Pt is a 58 y/o male with diabetes mellitus who recently underwent decompression surgery of the lumbar spine, left L3/4 and L4/5 hemilaminectomy/ mesial facetectomy/foraminotomy by Dr. Huff on 05/19, and was subsequently discharged on 05/[address] Huff. He was seen in follow-up as outpatient with Dr. Huff on 06/05. He developed worsening mental status on 06/06/18 and was brought to the ER where he was noted to be confused and disoriented and appeared dehydrated. His fingerstick glucose was 500s, ABG done in the ER revealed severe metabolic acidosis. He was admitted to ICU and was started on an insulin drip and IVF. - CT Brain (06/06) revealed no acute intracranial findings - Pt developed fevers on 06/07 which went as high as 103 degrees on 06/08. Pt was felt to be in severe sepsis and acidotic from tissue hypoperfusion and was emergently intubated on 06/08/18 for rapidly declining mental status and worsening respiratory failure. - MRI Brain (06/08/18) --> Mild degree of dural thickening and enhancement consistent with pachymeningitis, nonspecific. No acute or focal parenchymal brain abnormalities - MRI Lumbar spine (06/08/18) --> Minimal left sided epidural fluid and minimal fluid along the operative tract in the left paramedian back at the L4-5 level with moderate surrounding soft tissue edema and enhancement. - MRI of the cervical and thoracic spine were negative for abscess - Pt was started on Vanc/Cefepime/Flagyl on 06/08. - Blood cultures (06/06) with NGTD - Blood cultures (06/08) with NGTD - Pt was seen by on-call Neurosurgeon, Dr. Ba Aviles, on 06/08. He felt that no surgical intervention was felt to be necessary regarding the previous lumbar spine surgery as there was no significant fluid collection noted on MRI. He also noted that the dural thickening/enhancement noted on MRI could be suggestive of either meningitis but also can occur in the setting of CSF leak s/ p surgery. - Lumbar puncture was performed on 06/08 with culture being negative. CSF Glucose was 126, CSF lactic acid 3.2, CSF total protein 61.0, CSF VDRL negative , CSF cryptococcus Ag not detected, CSF Herpes I DNA and II DNA negative - EEG (06/10/18) negative for seizures. - Pt was able to be extubated on 06/11/18 - His antibiotics were de-escalated to Rocephin 2gm iv q12h on 06/12/18 and recommended to continue this through 06/22/18 to cover empirically for meningitis with a 2-week course. - Order PICC line placement - Pt will need [facility] for antibiotic administration teaching. - DVT prophylaxis with Heparin 5000units SQ Q8H Rib fracture - Pt fell walking to the bathroom on 06/13/18 - Rib Xray (06/13) --> Minimally displaced right lateral ninth rib fracture. No pneumothorax is visualized. - Add Ultram PRN for pain Conjunctivitis - Pt developed bilateral eye itchy, redness and drainage on 06/13 - Add Cipro eye drop Q2H on 06/14 Hypertension - Pt was resumed on home medication, Amlodipine 10 mg daily. - Patient is also on valsartan 80 mg daily but this is held due to recall - PRN Clonidine Acute hypoxic and hypercarbic respiratory failure- resolved Healthcare associated aspiration pneumonia - Sputum culture (06/08) --> Staph aureus, Klebsiella pneumoniae, and Beta strep not group A - Pt is on Rocephin - Albuterol nebs PRN - Pt saturating well on RA - Pulm toilet DKA - resolved Diabetes mellitus, uncontrolled, Hgb A1C 9.8% on 06/07 - Levemir 20 units SQ daily - NovoLog SSI - Accu checks Severe recurrent hypokalemia - Replace and monitor labs The exam, history, and the medical decision-making described in the above note were completed with the assistance of the mid-level provider. I reviewed and agree with the findings presented. I attest that I had a [id number] encounter with the patient on the same day, and personally performed and documented my assessment and findings in the medical record. (2) Aspiration pneumonia Code(s): J69.0 - Pneumonitis due to inhalation of food and vomit Status: Acute (3) HTN (hypertension) Code(s): I10 - Essential (primary) hypertension Status: Acute (4) Diabetes mellitus Code(s): E11.9 - Type 2 diabetes mellitus without complications Status: Acute (5) DKA (diabetic ketoacidoses) Code(s): E13.10 - Other specified diabetes mellitus with ketoacidosis without coma Status: Acute (6) Altered mental status Code(s): R41.82 - Altered mental status, unspecified Status: Acute (5) DKA (diabetic ketoacidoses) Qualifiers: Diabetes mellitus type: type 1 Diabetes mellitus complication detail: without coma Qualified Code(s): E10.10 - Type 1 diabetes mellitus with ketoacidosis without coma (6) Altered mental status Qualifiers: Altered mental status type: unspecified Qualified Code(s): R41.82 - Altered mental status, unspecified
[2018-06-14] MEDS: Insulin NovoLOG Aspart Correctional Sugar Inj SQ SCH ×3 (12:23→20:50)
[2018-06-14] MEDS: Ciprofloxacin 0.3% Opth Drops 5 ML Bottle EACH EYE SCH ×6 (17:07→21:43)
[2018-06-15] MEDS: Ciprofloxacin 0.3% Opth Drops 5 ML Bottle EACH EYE SCH ×12 (01:13→23:57)
[2018-06-15] MEDS: Oral Hygiene Kit OROPHARYNG SCH ×5 (01:13→23:58)
[2018-06-15] MEDS: Insulin NovoLOG Aspart Correctional Sugar Inj SQ SCH ×5 (03:11→22:05)
[2018-06-15 04:19] LABS: Anion Gap 11 meq/L (5-15); Blood Urea Nitrogen 4 mg/dL (7-18); Calcium 8.2 mg/dL (8.5-10.1); Carbon Dioxide 25.9 meq/L (21.0-32.0); Chloride 104 meq/L (98-107); Glomerular Filtration Rate Greater Than 89 mL/min (>89); Glucose,Random 149 mg/dL (74-106); Phosphorus 2.7 mg/dL (2.5-4.9); Potassium 3.9 meq/L (3.5-5.1); Sodium 141 meq/L (136-145)
[2018-06-15] MEDS: Heparin - SQ 10,000 UNITS/ML Vial SQ SCH ×3 (05:40→21:55)
[2018-06-15] MEDS: Sertraline 100 MG Tablet PO SCH (08:14)
[2018-06-15] MEDS: amLODIPine 10 MG Tablet PO SCH (08:14)
[2018-06-15] MEDS: Chlorhexidine 0.12% Oral Kit 15 ML UDC OROPHARYNG SCH ×2 (08:15→21:59)
[2018-06-15] MEDS: Insulin Detemir Inj 1,000 UNIT/10 ML Vial SQ SCH (08:15)
[2018-06-15] MEDS: Senna/Docusate Sodium 8.6/50 MG Tablet PO SCH ×2 (08:16→22:06)
[2018-06-15] MEDS: NUTRISOURCE FIBER G-TUBE SCH ×2 (08:16→21:50)
[2018-06-15 08:54] LABS: Hematocrit 32.4 % (39.0-51.0); Hemoglobin 11.2 gm/dL (13.0-17.0); Mean Corpuscular HGB Conc 34.5 % (32.0-36.0); Mean Corpuscular Hemoglobin 32.9 pg (27.0-34.0); Mean Corpuscular Volume 95.4 fL (80.0-100.0); Mean Platelet Volume 9.5 fL (7.0-11.0); Platelet Count 228 th/mm3 (150-450); Red Cell Distribution Width 13.8 % (11.6-17.2); White Blood Count 7.1 th/mm3 (4.0-11.0)
--- NOTE | 2018-06-15 09:43 | P.PNIM ---
Subjective Interval history: Pt is feeling well today Still with some pain on the right ribs Cough is non-productive. Eyes with less itching but still with drainage and crusting this morning Physical Exam Vital signs: Vital Signs 06/14/18 12:00 06/14/18 20:00 06/15/18 00:00 Temperature 98.0 F 97.7 F 98 F Pulse Rate 81 76 74 Respiratory Rate 19 20 20 Blood Pressure 168/92 H 155/86 H 167/88 H Pulse Oximetry 93 L 96 91 L 06/15/18 04:00 06/15/18 08:00 06/15/18 08:27 Temperature 97.3 F L 97.8 F Pulse Rate 76 78 78 Respiratory Rate 20 17 Blood Pressure 157/76 H 161/87 H Pulse Oximetry 95 95 06/15/18 08:31 Temperature 97.8 F Pulse Rate 78 Respiratory Rate 17 Blood Pressure 167/87 H Pulse Oximetry 95 Intake & Output 06/14/18 06/15/18 06/15/18 18:59 06:59 18:59 Intake Total 1200 / 1200 200 / 200 Balance 1200 / 1200 200 / 200 Weight 87.1 kg Intake: IV 200 / 200 Rocephin Inj 2,000 MG In NS Inj 200 / 200 100 ML @ 200 mls/hr IV.SIG Q12H [facility] Rx#:[id number] Oral 1200 / 1200 Other: # Voids 3 4 Date of Last Bowel Movement 06/13/18 Narrative: General: NAD, AAOx3 Chest: CTA, right sided rib pain, no crepitus Cardiac: regular Abd: +BS, soft ND Ext: No edema - Urinary Catheter Management Indwelling Urethral Catheter Cath placed during this visit: yes, but has since been removed by the nurse Reason for continuing: Decision to DC catheter Insertion date: 06/06/18 Insertion time: 23:50 Removal date: 06/12/18 Removal time: 08:00 Results - Labs CBC & Chem 7: 06/15/18 08:06 06/16/18 03:54 Laboratory Results - last 24 hr 06/14/18 06/14/18 06/14/18 12:15 17:12 20:46 WBC RBC Hgb Hct MCV MCH MCHC RDW Plt Count MPV Sodium Potassium Chloride Carbon Dioxide Anion Gap BUN Creatinine Estimated GFR POC Glucose 184 H 189 H 277 H Random Glucose Calcium Phosphorus 06/15/18 06/15/18 06/15/18 03:03 03:11 07:56 WBC RBC Hgb Hct MCV MCH MCHC RDW Plt Count MPV Sodium 141 Potassium 3.9 D Chloride 104 Carbon Dioxide 25.9 Anion Gap 11 BUN 4 L Creatinine 0.51 L Estimated GFR Greater than 89 POC Glucose 137 H 246 H Random Glucose 149 H Calcium 8.2 L Phosphorus 2.7 06/15/18 08:06 WBC 7.1 RBC 3.40 L Hgb 11.2 L Hct 32.4 L MCV 95.4 MCH 32.9 MCHC 34.5 RDW 13.8 Plt Count 228 MPV 9.5 Sodium Potassium Chloride Carbon Dioxide Anion Gap BUN Creatinine Estimated GFR POC Glucose Random Glucose Calcium Phosphorus - Imaging Chest X-Ray 06/06/18 18:57 CONCLUSION: The lungs are clear. Head CT 06/06/18 18:57 CONCLUSION: 1. Negative noncontrast CT brain. . Abdomen X-Ray 06/07/18 00:00 CONCLUSION: No concerning radiopaque foreign body is present that would preclude MRI. Cervical Spine MRI 06/08/18 00:00 CONCLUSION: 1. Degenerative change at the C5-C6 and C6-C7 levels as described above. 2. Increased signal suggesting edema in the posterior soft tissues of the nasopharynx, oropharynx and hypopharynx without focal fluid collection. Head MRI 06/08/18 00:00 CONCLUSION: 1. Mild degree of dural thickening and enhancement consistent with pachymeningitis, nonspecific. 2. No acute or focal parenchymal brain abnormalities. Lumbar Spine MRI 06/08/18 00:00 CONCLUSION: Minimal left sided epidural fluid and minimal fluid along the operative tract in the left paramedian back at the L4-5 level with moderate surrounding soft tissue edema and enhancement. Thoracic Spine MRI 06/08/18 00:00 CONCLUSION: Negative thoracic spine MRI examination. Chest X-Ray 06/08/18 09:48 CONCLUSION: 1. ETT in good position. NGT in the stomach. 2. Low lung volumes with minimal left lung base atelectasis. Lumbar Puncture Fluoroscopy 06/09/18 00:00 CONCLUSION: 1. Uncomplicated fluoroscopically guided lumbar puncture. Chest X-Ray 06/09/18 09:40 CONCLUSION: 1. Left subclavian central line distal tip in the superior vena cava. No pneumothorax is visualized. 2. Under inflation with bibasilar subsegmental atelectasis. Ribs X-Ray 06/13/18 00:00 CONCLUSION: Minimally displaced right lateral ninth rib fracture. No pneumothorax is visualized. Assessment and Plan - Assessment (1) Acute metabolic encephalopathy Code(s): G93.41 - Metabolic encephalopathy Status: Acute Plan: Acute metabolic encephalopathy, improving. Probable acute meningitis - Pt is a 58 y/o male with diabetes mellitus who recently underwent decompression surgery of the lumbar spine, left L3/4 and L4/5 hemilaminectomy/ mesial facetectomy/foraminotomy by Dr. Huff on 05/19, and was subsequently discharged on 05/[address] Huff. He was seen in follow-up as outpatient with Dr. Huff on 06/05. He developed worsening mental status on 06/06/18 and was brought to the ER where he was noted to be confused and disoriented and appeared dehydrated. His fingerstick glucose was 500s, ABG done in the ER revealed severe metabolic acidosis. He was admitted to ICU and was started on an insulin drip and IVF. - CT Brain (06/06) revealed no acute intracranial findings - Pt developed fevers on 06/07 which went as high as 103 degrees on 06/08. Pt was felt to be in severe sepsis and acidotic from tissue hypoperfusion and was emergently intubated on 06/08/18 for rapidly declining mental status and worsening respiratory failure. - MRI Brain (06/08/18) --> Mild degree of dural thickening and enhancement consistent with pachymeningitis, nonspecific. No acute or focal parenchymal brain abnormalities - MRI Lumbar spine (06/08/18) --> Minimal left sided epidural fluid and minimal fluid along the operative tract in the left paramedian back at the L4-5 level with moderate surrounding soft tissue edema and enhancement. - MRI of the cervical and thoracic spine were negative for abscess - Pt was started on Vanc/Cefepime/Flagyl on 06/08. - Blood cultures (06/06) with NGTD - Blood cultures (06/08) with NGTD - Pt was seen by on-call Neurosurgeon, Dr. Ba Aviles, on 06/08. He felt that no surgical intervention was felt to be necessary regarding the previous lumbar spine surgery as there was no significant fluid collection noted on MRI. He also noted that the dural thickening/enhancement noted on MRI could be suggestive of either meningitis but also can occur in the setting of CSF leak s/ p surgery. - Lumbar puncture was performed on 06/08 with culture being negative. CSF Glucose was 126, CSF lactic acid 3.2, CSF total protein 61.0, CSF VDRL negative , CSF cryptococcus Ag not detected, CSF Herpes I DNA and II DNA negative - EEG (06/10/18) negative for seizures. - Pt was able to be extubated on 06/11/18 - His antibiotics were de-escalated to Rocephin 2gm iv q12h on 06/12/18 and recommended to continue this through 06/22/18 to cover empirically for meningitis with a 2-week course. - Midline placed on 06/14 - Will write orders for HHC/PT and Abx orders. Pt does not want to go to SNF. - DVT prophylaxis with Heparin 5000units SQ Q8H Hypertension - Pt was resumed on home medication, Amlodipine 10 mg daily. - Patient is also on valsartan 80 mg daily but this is held due to recall - PRN Clonidine Acute hypoxic and hypercarbic respiratory failure- resolved Healthcare associated aspiration pneumonia - Sputum culture (06/08) --> Staph aureus, Klebsiella pneumoniae, and Beta strep not group A - Pt is on Rocephin - Albuterol nebs PRN - Wean supplemental O2 for goal spo2 > 90% - Pulm toilet DKA - resolved Diabetes mellitus, uncontrolled, Hgb A1C 9.8% on 06/07 - Levemir 20 units SQ daily - NovoLog SSI - Accu checks Severe recurrent hypokalemia - Replace and monitor labs (2) Aspiration pneumonia Code(s): J69.0 - Pneumonitis due to inhalation of food and vomit Status: Acute (3) HTN (hypertension) Code(s): I10 - Essential (primary) hypertension Status: Acute (4) Diabetes mellitus Code(s): E11.9 - Type 2 diabetes mellitus without complications Status: Acute (5) DKA (diabetic ketoacidoses) Code(s): E13.10 - Other specified diabetes mellitus with ketoacidosis without coma Status: Acute (6) Altered mental status Code(s): R41.82 - Altered mental status, unspecified Status: Acute - Attending Attestation Patient examined. Assessment and plan formulated with Fanny Lutz PA-C. I agree with the above. (5) DKA (diabetic ketoacidoses) Qualifiers: Diabetes mellitus type: type 1 Diabetes mellitus complication detail: without coma Qualified Code(s): E10.10 - Type 1 diabetes mellitus with ketoacidosis without coma (6) Altered mental status Qualifiers: Altered mental status type: unspecified Qualified Code(s): R41.82 - Altered mental status, unspecified
--- NOTE | 2018-06-15 09:55 | P.DCO ---
Post Hospital Infusion Therapy Location of Infusion Therapy: Home Health Care IV Infusion Order Patient Weight: 87.1 kg Allergies metformin Allergy (Severe, Verified 05/19/18 07:07) Abdominal Pain UPSET STOMACH, DIGESTIVE PROBLEMS prednisone Allergy (Severe, Verified 05/19/18 07:07) Rash RASH; THROAT SWOLLEN - SEVERE REACTION diclofenac Allergy (Intermediate, Verified 05/19/18 07:07) Swelling FELT SICK lisinopril Allergy (Mild, Verified 05/19/18 07:07) DRY COUGH - Diagnosis (1) Meningitis Code(s): G03.9 - Meningitis, unspecified (2) Aspiration pneumonia Code(s): J69.0 - Pneumonitis due to inhalation of food and vomit - Administer Medication Ceftriaxone Dose: 2 grams IV Directions: q 12 hours Stop Treatment: 06/22/18 - Additional Information Venous Access: Other (Midline PICC) Additional Instructions: [x] Peripheral flush and dressing changes per protocol [x] Implanted port and central line maintenance supervisor: * Implanted port: 10 ml Normal Saline followed by 5 ml Heparin 100 units/ml Heparin flush after each use and monthly to maintain. [] May leave port accessed during therapy. [] May leave peripheral site accessed for duration of therapy. [x] If patient has SOB or respiratory distress, check oxygen saturation. If less than 90% or clinical signs of respiratory distress, administer oxygen at 2 L/min. via nasal cannula and notify physician. [x] Anaphylaxis/Reaction orders: * Stop infusion. * Keep IV line open with saline flush. * Notify physician. * Monitor vital signs every 15 minutes until symptoms resolve. * Check Oxygen saturation; Oxygen at 2 L/min. via nasal cannula if less than 90% or clinical signs of respiratory distress. * Administer diphenhydramine (Benadryl) 25 mg IV STAT, (unless patient has received as pre-med). May repeat once, if necessary. * Solu-Cortef 250 mg IVP over 30-60 seconds, use 100 mg vials for each dissolution. * Epinephrine (1mg/1 ml) 0.3 mg subcutaneously or IVP now with any signs of respiratory distress. * Check with physician for new additional pre-med orders if patient is re- challenged or re-treated. [x] May remove PICC line when treatment complete, after confirming with Physician. [x] If the patient is admitted to the hospital, the ED, or transferred via [facility] , complete transfer form including medication reconciliation order sheet. Weekly Labs: BMP, CBC w/diff Case Management Consult: Yes
--- NOTE | 2018-06-15 09:58 | P.DCO ---
- Physical Therapy Order: Evaluate and treat - Home Health Nursing Order: Medical education, Signs/symptoms of disease process, Nursing assessment with vital signs, IV medication administration Instructions: Check CBC with diff and BMP on 06/18/18 and Friday06/22/18 with results to the pts PCP, Dr. Nathalia Cordon. - Certification I have seen patient Reddy Tim on 06/15/18. My clinical findings support the need for the requested home health care services because: Deconditioned with increased weakness, Infection with risk of complications I certify that my clinical findings support that this patient is homebound because: Post-op weakness, Unsteady gait/balance
[2018-06-16] MEDS: Ciprofloxacin 0.3% Opth Drops 5 ML Bottle EACH EYE SCH ×8 (02:58→16:06)
[2018-06-16] MEDS: Oral Hygiene Kit OROPHARYNG SCH ×3 (05:17→16:05)
[2018-06-16 05:18] LABS: Anion Gap 11 meq/L (5-15); Blood Urea Nitrogen 5 mg/dL (7-18); Calcium 8.5 mg/dL (8.5-10.1); Chloride 104 meq/L (98-107); Glomerular Filtration Rate Greater Than 89 mL/min (>89); Glucose,Random 169 mg/dL (74-106); Potassium 3.4 meq/L (3.5-5.1); Sodium 142 meq/L (136-145)
[2018-06-16] MEDS: Heparin - SQ 10,000 UNITS/ML Vial SQ SCH ×2 (05:22→16:05)
[2018-06-16] MEDS: Insulin NovoLOG Aspart Correctional Sugar Inj SQ SCH ×4 (05:24→17:56)
[2018-06-16] MEDS: Chlorhexidine 0.12% Oral Kit 15 ML UDC OROPHARYNG SCH (09:54)
[2018-06-16] MEDS: amLODIPine 10 MG Tablet PO SCH (09:54)
[2018-06-16] MEDS: Sertraline 100 MG Tablet PO SCH (09:54)
[2018-06-16] MEDS: Insulin Detemir Inj 1,000 UNIT/10 ML Vial SQ SCH (09:54)
[2018-06-16] MEDS: Senna/Docusate Sodium 8.6/50 MG Tablet PO SCH (09:54)
[2018-06-16] MEDS: NUTRISOURCE FIBER G-TUBE SCH (09:55)
--- NOTE | 2018-06-16 10:15 | P.DS ---
Date of admission: 06/06/18 20:38 Primary care physician: Nathalia Cordon MD Attending physician on discharge: Franc Jones Anticipated date of discharge: 06/16/18 Brief History from admission: 58-year-old male with a medical history significant for diabetes mellitus who recently underwent decompression surgery for lumbar spine on 05/19 and was subsequently discharged on 05/[address] Huff. He underwent a follow-up as outpatient with Dr. Huff's office on 06/05. He reportedly had stopped taking his insulin 2 days back and he developed worsening mental status since yesterday and was brought to the ER by his today where he was noted to be confused and disoriented and appeared dehydrated. His fingerstick glucose was 500s, ABG done in the ER revealed severe metabolic acidosis. BMP was still pending when I evaluated the patient. He had received IV insulin and was to be started on an insulin drip at the time of my evaluation. He had also received 2 L normal saline bolus and was getting his third liter IV fluid. Patient was awake and alert however could not tell me the date month or year. He could not tell me that he was in the hospital though he was following commands appropriately. He was slightly tachypneic however did not appear to be in any acute distress. ER and diagnosed patient with diabetic ketoacidosis earlier and has instituted DKA protocol. DS: Diagnosis - Discharge Diagnosis (1) Meningitis Status: Acute (2) Aspiration pneumonia Status: Acute (3) DKA (diabetic ketoacidoses) Status: Acute (4) Altered mental status Status: Acute (5) Acute metabolic encephalopathy Status: Acute (6) HTN (hypertension) Status: Acute (7) Diabetes mellitus Status: Acute DS: Medications - Discharge Medications Prescriptions: ciprofloxacin HCl 1 drop EACH EYE Q4HR 5 Days ml benzonatate [Tessalon Perles] 200 mg PO Q8H PRN 7 Days cap PRN Reason: Cough DS: Summary Hospital Course: Acute metabolic encephalopathy, improving. Probable acute meningitis - Pt is a 58 y/o male with diabetes mellitus who recently underwent decompression surgery of the lumbar spine, left L3/4 and L4/5 hemilaminectomy/ mesial facetectomy/foraminotomy by Dr. Huff on 05/19, and was subsequently discharged on 05/[address] Huff. He was seen in follow-up as outpatient with Dr. Huff on 06/05. He developed worsening mental status on 06/06/18 and was brought to the ER where he was noted to be confused and disoriented and appeared dehydrated. His fingerstick glucose was 500s, ABG done in the ER revealed severe metabolic acidosis. He was admitted to ICU and was started on an insulin drip and IVF. CT Brain (06/06) revealed no acute intracranial findings. Pt developed fevers on 06/07 which went as high as 103 degrees on . Pt was felt to be in severe sepsis and acidotic from tissue hypoperfusion and was emergently intubated on 06/08/18 for rapidly declining mental status and worsening respiratory failure. - MRI Brain (06/08/18) --> Mild degree of dural thickening and enhancement consistent with pachymeningitis, nonspecific. No acute or focal parenchymal brain abnormalities - MRI Lumbar spine (06/08/18) --> Minimal left sided epidural fluid and minimal fluid along the operative tract in the left paramedian back at the L4-5 level with moderate surrounding soft tissue edema and enhancement. - MRI of the cervical and thoracic spine were negative for abscess Pt was started on Vanc/Cefepime/Flagyl on 06/08. Blood cultures (06/06) with NGTD. Blood cultures (06/08) with NGTD. Pt was seen by on-call Neurosurgeon, Dr. Ba Aviles, on 06/08. He felt that no surgical intervention was felt to be necessary regarding the previous lumbar spine surgery as there was no significant fluid collection noted on MRI. He also noted that the dural thickening/enhancement noted on MRI could be suggestive of either meningitis but also can occur in the setting of CSF leak s/p surgery. Lumbar puncture was performed on 06/08 with culture being negative. CSF Glucose was 126, CSF lactic acid 3.2, CSF total protein 61.0, CSF VDRL negative, CSF cryptococcus Ag not detected, CSF Herpes I DNA and II DNA negative. EEG (06/10/18) negative for seizures. Pt was able to be extubated on 06/11/18. His antibiotics were de- escalated to Rocephin 2gm iv q12h on 06/12/18. Midline was placed on 06/14 in anticipation for continuing home antibiotics. The case was reviewed by ID on the day of discharge. Per ID notes, it was felt that the pt aspiration PNA was treated completely. The abnormal CSF and MRI findings were felt to be more consistent with possibly viral meningitis vs. post op changes related to recent laminectomy 3 wks prior to LP ID recommended stopping the antibiotics and remove the midline. Pt does not want to go to SNF. We will have [facility] recheck CBC and BMP on 06/18/18 and Friday06/22/[address] Cordon Rib fracture - Pt fell walking to the bathroom on 06/13/18. Rib Xray (06/13) --> Minimally displaced right lateral ninth rib fracture. No pneumothorax is visualized. PT re -evaluated on 06/15 and recommended SNF but pt refusing. Ultram PRN for pain Conjunctivitis - Pt developed bilateral eye itchy, redness and drainage on 06/13. He was started on Cipro eye drop Q2H on 06/14. Decreased dose to Q4H at discharge and complete 5 more days. Hypertension - Pt was resumed on home medication, Amlodipine 10 mg daily. Patient is also on valsartan 80 mg daily but this is held due to recall. Acute hypoxic and hypercarbic respiratory failure- resolved Healthcare associated aspiration pneumonia - Sputum culture (06/08) --> Staph aureus, Klebsiella pneumoniae, and Beta strep not group A. Pt was weaned off supplemental O2 with stable O2 sats. If was felt by ID that the pt completed treatment for the aspiration pneumonia. DKA - resolved Diabetes mellitus, uncontrolled, Hgb A1C 9.8% on 06/07 - Pt will be resumed on his home regimen upon discharge. Recurrent hypokalemia - Pt received replacement almost daily and will be discharged on KCl 10meq po daily and monitor labs as an outp. - Time Spent with Patient Total time spent providing and/or coordinating discharge services: Greater than 30 minutes - Quality: VTE Deep Vein Thrombosis/Pulmonary Embolism Present on Admission: No Exam Vital signs: Vital Signs 06/15/18 12:00 06/15/18 12:37 06/15/18 16:00 Temperature 97.4 F L 97.8 F Pulse Rate 75 95 H 72 Respiratory Rate 17 17 Blood Pressure 147/81 H 150/70 H Pulse Oximetry 94 L 94 L 06/15/18 20:00 06/16/18 00:00 06/16/18 04:00 Temperature 98 F 98 F 98.5 F Pulse Rate 77 77 75 Respiratory Rate 18 18 18 Blood Pressure 153/79 H 161/81 H 161/87 H Pulse Oximetry 93 L 96 95 06/16/18 08:00 Temperature 98.2 F Pulse Rate 82 Respiratory Rate 18 Blood Pressure 154/88 H Pulse Oximetry 95 Intake & Output 06/15/18 06/16/18 06/16/18 18:59 06:59 18:59 Intake Total 1000 / 1000 1200 / 1200 Output Total 150 / 150 Balance 1000 / 1000 1050 / 1050 Weight 87.1 kg 86.8 kg Intake: IV 100 / 100 1200 / 1200 Rocephin Inj 2,000 MG In NS Inj 100 / 100 100 / 100 100 ML @ 200 mls/hr IV.SIG Q12H [facility] Rx#:[id number] Oral 900 / 900 Output: Urine 150 / 150 Other: # Voids 10 2 Date of Last Bowel Movement 06/15/18 # Bowel Movements 2 Results Procedures completed during hospitalization: See above Labs on day of discharge: Labs from last 24 hours 06/16/18 06/16/18 06/15/18 05:15 03:54 22:01 Sodium 142 Potassium 3.4 L Chloride 104 Carbon Dioxide 27.0 Anion Gap 11 BUN 5 L Creatinine 0.54 L Estimated GFR Greater than 89 POC Glucose 220 H 275 H Random Glucose 169 H Calcium 8.5 06/15/18 06/15/18 18:11 12:44 Sodium Potassium Chloride Carbon Dioxide Anion Gap BUN Creatinine Estimated GFR POC Glucose 116 H 265 H Random Glucose Calcium - Impressions ITS Impressions Head CT 06/06/18 18:57 CONCLUSION: 1. Negative noncontrast CT brain. . Abdomen X-Ray 06/07/18 00:00 CONCLUSION: No concerning radiopaque foreign body is present that would preclude MRI. Cervical Spine MRI 06/08/18 00:00 CONCLUSION: 1. Degenerative change at the C5-C6 and C6-C7 levels as described above. 2. Increased signal suggesting edema in the posterior soft tissues of the nasopharynx, oropharynx and hypopharynx without focal fluid collection. Head MRI 06/08/18 00:00 CONCLUSION: 1. Mild degree of dural thickening and enhancement consistent with pachymeningitis, nonspecific. 2. No acute or focal parenchymal brain abnormalities. Lumbar Spine MRI 06/08/18 00:00 CONCLUSION: Minimal left sided epidural fluid and minimal fluid along the operative tract in the left paramedian back at the L4-5 level with moderate surrounding soft tissue edema and enhancement. Thoracic Spine MRI 06/08/18 00:00 CONCLUSION: Negative thoracic spine MRI examination. Lumbar Puncture Fluoroscopy 06/09/18 00:00 CONCLUSION: 1. Uncomplicated fluoroscopically guided lumbar puncture. Chest X-Ray 06/09/18 09:40 CONCLUSION: 1. Left subclavian central line distal tip in the superior vena cava. No pneumothorax is visualized. 2. Under inflation with bibasilar subsegmental atelectasis. Ribs X-Ray 06/13/18 00:00 CONCLUSION: Minimally displaced right lateral ninth rib fracture. No pneumothorax is visualized. Discharge Plan - Discharge Disposition Patient Disposition: W/Home Health Service - Discharge Condition Condition: Stable - Discharge Details Anticipated Discharge Date: 06/16/18 Discharge Comment: Follouwp with Dr. Cordon in 1 week, call for an appt - Physicians Team Primary Care Provider: Nathalia Cordon Attending Provider: Craig Silva Other Providers: Ba Aviles MD ; Gurjit De Los Santos MD ; [facility] ; Fara Chan MD
--- NOTE | 2018-06-16 10:54 | P.DIET ---
Nutritional Evaluation Type of nutrition evaluation: follow-up Nutrition consult regarding: Tube Feeding Screening comments: TFing was d/c'ed on 06/11. Pt is eating 75-100% of his Regular diet. BMI is 29.1. Pt no longer at high nutrition risk. Consult RD if needed. Objective - Diagnosis Acute DKA - Objective % IBW: 130 (IBW = 154#) Body Weight Used for Calculations: IBW (70 kg) Energy Needs - Lower Range (kCal/kg): 25 Energy Needs - Upper Range (kCal/kg): 30 Lower Limit kCal/kg (kCals): 1,750 Upper Limit kCal/kg (kCals): 2,100 Lower Limit Protein Factor (Grams per Kg): 1.0 Upper Limit Protein Factor (Grams per Kg): 1.5 Lower Protein Needs (Protein): 70 Upper Protein Needs (Protein): 105 Dietitian Reviewed in Medical Record: Curent medications, Labs, Medical history , Tube feeding Diet Order: NPO Objective Comments: 05/19 decompressive surgery for lumbar spine HgA1c 9.8 Assessment Recommendations: Consult RD if needed.
[2018-06-16] MEDS ORDERED: Potassium Chloride 10 MEQ ER Capsule PO ONE (11:30)
--- NOTE | 2018-06-16 14:08 | P.CONID ---
History of Present Illness Service: ID Consult date: 06/16/18 Requesting Physician: Franc Jones Reason for Consult: meningitis aspiration PNA Primary Care Provider: Nathalia Cordon MD Family Provider: Nathalia Cordon MD Chief Complaint: possible wound infection History of Present Illness: 58 yo male diabetic, non compliant , HTN sp L sppine laminectomy 05/19 admitted with mental status change and DKA on 06/08 Pt denies any headachm, but endorses cough initially dry later with expectoration wich now resolved No w c/o ichy eyes W/u included meningeal enchancement on brain MRI CSF with protein of 60, increased RBC, 31 of WBC (99% lymphs) Gstain and final culture negative as well Pt on broad spectrum abx since admission, later changed to ROcephin His spiutum was positive for Kleb pnumo, strep and MSSA Pt was diagnosed with aspiration PNA family hx non contributory to curent illness Review of Systems All other systems reviewed negative except as stated in HPI PMFSH - History History Provided By: Patient - Medical History Medical History: Medical History (Last Reviewed 06/16/18 @ 13:50 by Fara Chan MD) Back pain Diabetes GERD (gastroesophageal reflux disease) Hypertension Tear of biceps muscle - Surgical History Surgical History: Surgical History (Last Reviewed 06/16/18 @ 13:50 by Fara Chan MD) Previous back surgery History of tonsillectomy and adenoidectomy History of total replacement of right hip Hx of cataract surgery - Tobacco History Second Hand Smoke Exposure: No Tobacco Use In Past 30 Days: No Smoking Status: Former smoker - Alcohol History How Often Do You Have a Drink Containing Alcohol: 4 or more times a week - Substance Use History Substance History: Active Abuse - Travel History Recent Travel in the [place] Within the Last 8 Weeks: No Recent Travel Out of the Country Within the Last 8 Weeks: No - Immunization History Tetanus Immunization: Unsure Hx Influenza Vaccine This Season: No Medications and Allergies Active Medications: Active Medications Acetaminophen (Tylenol) 650 mg PO Q6H PRN PRN Reason: PAIN 1-2 AND/OR FEVER >101F Last Admin: 06/13/18 05:21 Dose: 650 mg Al Hydroxide/Mg Hydroxide (Milk Of Magnesia Liq) 30 ml PO Q12H PRN PRN Reason: Mild Constipation Albuterol (Albuterol Neb (Prn)) 2.5 mg NEB Q2HR NEB PRN PRN Reason: DYSPNEA Amlodipine Besylate (Norvasc) 10 mg PO DAILY [facility] Last Admin: 06/16/18 09:54 Dose: 10 mg Benzonatate (Tessalon Perles) 200 mg PO Q8H PRN PRN Reason: COUGH Last Admin: 06/13/18 20:49 Dose: 200 mg Bisacodyl (Dulcolax Supp) 10 mg RECTAL DAILY PRN PRN Reason: SEVERE CONSITIPATION Chlorhexidine Gluconate (Peridex 0.12% Oral Kit) 15 ml OROPHARYNG BID@0800, 2000 [facility] Last Admin: 06/16/18 09:54 Dose: Not Given Ciprofloxacin HCl (Ciloxan 0.3% Opth Drops) 1 drop EACH EYE Q2HR [facility] Last Admin: 06/16/18 12:25 Dose: 1 drop Clonidine HCl (Catapres) 0.1 mg PO Q6H PRN PRN Reason: systolic BP over 170 Dextrose (D50w Vial) 50 ml IV.PUSH UNSCH PRN PRN Reason: PER HYPOGLYCEMIA PROTOCOL Glucagon (Glucagon Inj) 1 mg OTHER PRN PRN PRN Reason: for Hypoglycemia Protocol Guar Gum (Nutrisource Fiber Powder) 1 packet G-TUBE BID [facility] Last Admin: 06/16/18 09:55 Dose: Not Given Heparin Sodium (Porcine) (Heparin Inj) 5,000 units SQ Q8HR [facility] Last Admin: 06/16/18 05:22 Dose: 5,000 units Ceftriaxone Sodium 2,000 mg/ (Sodium Chloride) 100 mls @ 200 mls/hr IV.SIG Q12H [facility] Stop: 06/22/18 17:00 Last Infusion: 06/16/18 05:59 Dose: Infused Insulin Aspart (Novolog Insulin Correctional Sugar Inj) 0 unit SQ ACHS AND 3AM [facility]; Protocol Last Admin: 06/16/18 12:31 Dose: 7 unit Insulin Detemir (Levemir Inj) 20 unit SQ DAILY [facility] Last Admin: 06/16/18 09:54 Dose: 20 unit Lactulose (Lactulose Liq) 30 ml PO DAILY PRN PRN Reason: SEVERE CONSITIPATION Losartan Potassium (Cozaar) 50 mg PO DAILY [facility] Last Admin: 06/16/18 12:29 Dose: 50 mg Ondansetron HCl (Zofran Inj) 4 mg IV.PUSH Q6H PRN PRN Reason: NAUSEA OR VOMITING Last Admin: 06/11/18 19:02 Dose: 4 mg Senna/Docusate Sodium (Tania-Colace) 1 tab PO BID [facility] Last Admin: 06/16/18 09:54 Dose: Not Given Sennosides (Senokot) 17.2 mg PO Q12H PRN PRN Reason: Moderate Constipation Sertraline HCl (Zoloft) 200 mg PO DAILY [facility] Last Admin: 06/16/18 09:54 Dose: 200 mg Sodium Chloride (Ns Flush) 2 ml IV.FLUSH BID [facility] Last Admin: 06/16/18 09:58 Dose: 2 ml Sodium Chloride (Ns Flush) 2 ml IV.FLUSH PRN PRN PRN Reason: FLUSH AFTER USING IV ACCESS Last Admin: 06/12/18 00:43 Dose: 2 ml Tramadol HCl (Ultram) 50 mg PO Q4H PRN PRN Reason: pain 3-10 Last Admin: 06/15/18 08:14 Dose: 50 mg Allergies Allergy/AdvReac Type Severity Reaction Status Date / Time metformin Allergy Severe Abdominal Verified 05/19/18 07:07 Pain prednisone Allergy Severe Rash Verified 05/19/18 07:07 diclofenac Allergy Intermediate Swelling Verified 05/19/18 07:07 lisinopril Allergy Mild DRY COUGH Verified 05/19/18 07:07 Home Medications Medication Instructions Recorded Confirmed Type amlodipine 10 mg PO DAILY 05/18/18 05/19/18 History empagliflozin [Jardiance] 25 mg PO DAILY 05/18/18 05/19/18 History insulin aspart U-100 [Novolog 7 unit SUB-Q TID 05/18/18 05/19/18 History Flexpen U-100 Insulin] insulin degludec [Tresiba 36 unit SUB-Q DAILY 05/18/18 05/19/18 History FlexTouch U-100] linagliptin [Tradjenta] 5 mg PO DAILY 05/18/18 05/19/18 History omeprazole 20 mg PO DAILY 05/18/18 05/19/18 History sertraline 200 mg PO DAILY 05/18/18 05/19/18 History valsartan 80 mg PO DAILY 05/18/18 05/19/18 History Exam Vital signs: Vital Signs 06/15/18 16:00 06/15/18 20:00 06/16/18 00:00 Temperature 97.8 F 98 F 98 F Pulse Rate 72 77 77 Respiratory Rate 17 18 18 Blood Pressure 150/70 H 153/79 H 161/81 H Pulse Oximetry 94 L 93 L 96 06/16/18 04:00 06/16/18 08:00 06/16/18 12:00 Temperature 98.5 F 98.2 F 98.3 F Pulse Rate 75 82 88 Respiratory Rate 18 18 17 Blood Pressure 161/87 H 154/88 H 147/77 H Pulse Oximetry 95 95 94 L Intake & Output 06/15/18 06/16/18 06/16/18 18:59 06:59 18:59 Intake Total 1000 / 1000 1200 / 1200 Output Total 150 / 150 Balance 1000 / 1000 1050 / 1050 Weight 87.1 kg 86.8 kg Intake: IV 100 / 100 1200 / 1200 Rocephin Inj 2,000 MG In NS Inj 100 / 100 100 / 100 100 ML @ 200 mls/hr IV.SIG Q12H [facility] Rx#:[id number] Oral 900 / 900 Output: Urine 150 / 150 Other: # Voids 10 2 Date of Last Bowel Movement 06/15/18 # Bowel Movements 2 - Constitutional no acute distress, average body habitus - Routine HEENT Exam Head: Present: normocephalic, atraumatic Eye: Present: EOMI, PERRL, conjunctivae pink - Routine Neck Exam Present: supple, full ROM - Routine Respiratory Exam Present: CTA bilaterally Comments: good effort - Routine Cardiovascular Exam Present: RRR, S1, S2 Comments: no murmurs, rubs gallops - Routine Abdominal Exam Present: soft, normoactive bowel sounds Comments: no organomegaly, no masses - Routine Extremities Exam Comments: no cyanosis, clubbing or edema - Routine Skin Exam Present: intact, dry, warm - Routine Neurological Exam Present: alert, oriented X3, CN II-XII intact, moving all extremities, vision grossly intact, hearing grossly intact - Routine Psychiatric Exam Present: normal affect, normal thought process, cooperative Results - Labs CBC & Chem 7: 06/15/18 08:06 06/16/18 03:54 Labs: Laboratory Results - last 24 hr 06/15/18 06/15/18 06/16/18 18:11 22:01 03:54 Sodium 142 Potassium 3.4 L Chloride 104 Carbon Dioxide 27.0 Anion Gap 11 BUN 5 L Creatinine 0.54 L Estimated GFR Greater than 89 POC Glucose 116 H 275 H Random Glucose 169 H Calcium 8.5 06/16/18 06/16/18 06/16/18 05:15 09:51 12:08 Sodium Potassium Chloride Carbon Dioxide Anion Gap BUN Creatinine Estimated GFR POC Glucose 220 H 286 H 280 H Random Glucose Calcium - Imaging Chest X-Ray 06/06/18 18:57 CONCLUSION: The lungs are clear. Head CT 06/06/18 18:57 CONCLUSION: 1. Negative noncontrast CT brain. . Abdomen X-Ray 06/07/18 00:00 CONCLUSION: No concerning radiopaque foreign body is present that would preclude MRI. Cervical Spine MRI 06/08/18 00:00 CONCLUSION: 1. Degenerative change at the C5-C6 and C6-C7 levels as described above. 2. Increased signal suggesting edema in the posterior soft tissues of the nasopharynx, oropharynx and hypopharynx without focal fluid collection. Head MRI 06/08/18 00:00 CONCLUSION: 1. Mild degree of dural thickening and enhancement consistent with pachymeningitis, nonspecific. 2. No acute or focal parenchymal brain abnormalities. Lumbar Spine MRI 06/08/18 00:00 CONCLUSION: Minimal left sided epidural fluid and minimal fluid along the operative tract in the left paramedian back at the L4-5 level with moderate surrounding soft tissue edema and enhancement. Thoracic Spine MRI 06/08/18 00:00 CONCLUSION: Negative thoracic spine MRI examination. Chest X-Ray 06/08/18 09:48 CONCLUSION: 1. ETT in good position. NGT in the stomach. 2. Low lung volumes with minimal left lung base atelectasis. Lumbar Puncture Fluoroscopy 06/09/18 00:00 CONCLUSION: 1. Uncomplicated fluoroscopically guided lumbar puncture. Chest X-Ray 06/09/18 09:40 CONCLUSION: 1. Left subclavian central line distal tip in the superior vena cava. No pneumothorax is visualized. 2. Under inflation with bibasilar subsegmental atelectasis. Ribs X-Ray 06/13/18 00:00 CONCLUSION: Minimally displaced right lateral ninth rib fracture. No pneumothorax is visualized. Assessment and Plan - Plan Aspiration PNA sp completed treatment Abnormal CSF Possibly viral meningitis vs post op changes 2/2 recent laminectomy 3 wks prior to LP - MR was dw with Dr Guerrero: pachymeningeal enchancement is non specific OK to dc home Stop abx dw Dr Jones
--- NOTE | 2018-06-16 16:40 | P.DCO ---
- Diagnosis (1) DKA (diabetic ketoacidoses) (2) Altered mental status - Physical Therapy Order: Evaluate and treat, Improve ambulation, Strength and gait training - Home Health Nursing Order: Medical education, Signs/symptoms of disease process, Diabetic education , Medication education-adverse effect, Wound care and dressing changes, Nursing assessment with vital signs - Certification I have seen patient Reddy Tim on 06/16/18. My clinical findings support the need for the requested home health care services because: Limited mobility due to disease progression, Deconditioned with increased weakness, Medication compliance is questionable, Limited ability to care for self, Need for psychosocial assistance I certify that my clinical findings support that this patient is homebound because: Post-op weakness, Unsafe to leave home unassisted, Need for psychosocial assistance, Unable to use public transportation (1) DKA (diabetic ketoacidoses) Qualifiers: Diabetes mellitus type: type 1 Diabetes mellitus complication detail: without coma Qualified Code(s): E10.10 - Type 1 diabetes mellitus with ketoacidosis without coma (2) Altered mental status Qualifiers: Altered mental status type: unspecified Qualified Code(s): R41.82 - Altered mental status, unspecified
--- NOTE | 2018-06-20 10:13 | P.DS ---
Date of admission: 06/06/18 20:38 Primary care physician: Nathalia Cordon MD Anticipated date of discharge: 06/16/18 Brief History from admission: 58-year-old male with a medical history significant for diabetes mellitus who recently underwent decompression surgery for lumbar spine on 05/19 and was subsequently discharged on 05/[address] Huff. He underwent a follow-up as outpatient with Dr. Huff's office on 06/05. He reportedly had stopped taking his insulin 2 days back and he developed worsening mental status since yesterday and was brought to the ER by his today where he was noted to be confused and disoriented and appeared dehydrated. His fingerstick glucose was 500s, ABG done in the ER revealed severe metabolic acidosis. BMP was still pending when I evaluated the patient. He had received IV insulin and was to be started on an insulin drip at the time of my evaluation. He had also received 2 L normal saline bolus and was getting his third liter IV fluid. Patient was awake and alert however could not tell me the date month or year. He could not tell me that he was in the hospital though he was following commands appropriately. He was slightly tachypneic however did not appear to be in any acute distress. ER and diagnosed patient with diabetic ketoacidosis earlier and has instituted DKA protocol. DS: Diagnosis - Discharge Diagnosis (1) Acute metabolic encephalopathy Status: Acute (2) Altered mental status Status: Acute (3) Aspiration pneumonia Status: Acute (4) DKA (diabetic ketoacidoses) Status: Acute (5) Diabetes mellitus Status: Acute (6) HTN (hypertension) Status: Acute (7) Lumbar spinal stenosis Status: Acute DS: Medications - Discharge Medications Prescriptions: ciprofloxacin HCl 1 drop EACH EYE Q4HR 5 Days ml benzonatate [Tessalon Perles] 200 mg PO Q8H PRN 7 Days cap PRN Reason: Cough losartan [Cozaar] 50 mg PO DAILY 30 Days #30 tab potassium chloride [K-Tab] 10 meq PO DAILY #14 tab DS: Summary Hospital Course: Hospital Course: Acute metabolic encephalopathy, improving. - Pt is a 58 y/o male with diabetes mellitus who recently underwent decompression surgery of the lumbar spine, left L3/4 and L4/5 hemilaminectomy/ mesial facetectomy/foraminotomy by Dr. Huff on 05/19, and was subsequently discharged on 05/[address] Huff. - Pt was seen in follow-up as outpatient with Dr. Huff on 06/05. - Pt developed worsening mental status on 06/06/18 and was brought to the ER where he was noted to be confused and disoriented and appeared dehydrated. - Pt's fingerstick glucose was 500s, ABG done in the ER revealed severe metabolic acidosis. - Pt was admitted to ICU and was started on an insulin drip and IVF. - CT Brain (06/06) revealed no acute intracranial findings. - Pt developed fevers on 06/07 which went as high as 103 degrees on 06/08. Pt was felt to be in severe sepsis and acidotic from tissue hypoperfusion and was emergently intubated on 06/08/18 for rapidly declining mental status and worsening respiratory failure. - MRI Brain (06/08/18) --> Mild degree of dural thickening and enhancement consistent with pachymeningitis, nonspecific. No acute or focal parenchymal brain abnormalities - MRI Lumbar spine (06/08/18) --> Minimal left sided epidural fluid and minimal fluid along the operative tract in the left paramedian back at the L4-5 level with moderate surrounding soft tissue edema and enhancement. - MRI of the cervical and thoracic spine were negative for abscess - Pt was started on Vanc/Cefepime/Flagyl on 06/08. Blood cultures (06/06) with NGTD. Blood cultures (06/08) with NGTD. - Pt was seen by on-call Neurosurgeon, Dr. Ba Aviles, on 06/08. He felt that no surgical intervention was felt to be necessary regarding the previous lumbar spine surgery as there was no significant fluid collection noted on MRI. - NSX noted that the dural thickening/enhancement noted on MRI could be suggestive of either meningitis but also can occur in the setting of CSF leak s/ p surgery. - Lumbar puncture 06/08 with culture being negative. - CSF Glucose was 126, CSF lactic acid 3.2, CSF total protein 61.0, CSF VDRL negative, CSF cryptococcus Ag not detected, CSF Herpes I DNA and II DNA negative. - EEG (06/10/18) negative for seizures. - Pt was able to be extubated on 06/11/18. - Pt ABX were de-escalated to Rocephin 2gm iv q12h on 06/12/18. Midline was placed on 06/14 in anticipation for continuing home antibiotics. - Case was reviewed with Radiology on the day of discharge 06/16. Brain MRI findings were felt to NOT be c/w meningitis - Case was reviewed with pt's Neurosurgeon, Dr. Huff on the day of discharge . Dr. Huff felt that findings were NOT c/w meningitis. - Consult obtained with ID, Dr. Chan, (06/16/18). - Dr. Chan opined that the pt aspiration PNA was treated completely. The abnormal CSF and MRI findings were felt to be more consistent with possibly viral meningitis vs. post op changes related to recent laminectomy 3 wks prior to LP - Per ID recommendation ABX stopped, midline removed, and pt discharged to home without further antibiotic exposure. - Pt adamantly declined SNF - [facility] arranged to recheck CBC and BMP on 06/18/18 and Friday06/22/[address] Cordon Rib fracture - Pt fell walking to the bathroom on 06/13/18. Rib Xray (06/13) --> Minimally displaced right lateral ninth rib fracture. No pneumothorax is visualized. PT re -evaluated on 06/15 and recommended SNF but pt refusing. Ultram PRN for pain Conjunctivitis - Pt developed bilateral eye itchy, redness and drainage on 06/13. He was started on Cipro eye drop Q2H on 06/14. Decreased dose to Q4H at discharge and complete 5 more days. Hypertension - Pt was resumed on home medication, Amlodipine 10 mg daily. Patient is also on valsartan 80 mg daily but this is held due to recall. Acute hypoxic and hypercarbic respiratory failure- resolved Healthcare associated aspiration pneumonia - Sputum culture (06/08) --> Staph aureus, Klebsiella pneumoniae, and Beta strep not group A. Pt was weaned off supplemental O2 with stable O2 sats. If was felt by ID that the pt completed treatment for the aspiration pneumonia. DKA - resolved Diabetes mellitus, uncontrolled, Hgb A1C 9.8% on 06/07 - Pt will be resumed on his home regimen upon discharge. - f/u with PCP in 1 week Recurrent hypokalemia - Pt received replacement almost daily and will be discharged on KCl 10meq po daily and monitor labs as an outp. - Time Spent with Patient Total time spent providing and/or coordinating discharge services: Greater than 30 minutes - Quality: VTE Deep Vein Thrombosis/Pulmonary Embolism Present on Admission: No Exam Vital signs: see chart Narrative: GENERAL: This is a well-nourished, well-developed patient, in no apparent distress. CARDIOVASCULAR: Regular rate and rhythm without murmurs, gallops, or rubs. RESPIRATORY: Clear to auscultation. Breath sounds equal bilaterally. No wheezes , rales, or rhonchi. GASTROINTESTINAL: Abdomen soft, non-tender, nondistended. Normal active bowel sounds MUSCULOSKELETAL: Extremities without clubbing, cyanosis, or edema. NEURO: Alert & Oriented x4 to person, place, time, situation. Moves all ext x4 Results Procedures completed during hospitalization: See above Labs on day of discharge: Preliminary micro results at discharge 06/08/18 14:04 Mycobacterial Culture - Preliminary Cerebral Spinal Fluid - Lumbar Puncture No growth in 1 week - Impressions Head CT 06/06/18 18:57 CONCLUSION: 1. Negative noncontrast CT brain. Abdomen X-Ray 06/07/18 00:00 CONCLUSION: No concerning radiopaque foreign body is present that would preclude MRI. Cervical Spine MRI 06/08/18 00:00 CONCLUSION: 1. Degenerative change at the C5-C6 and C6-C7 levels as described above. 2. Increased signal suggesting edema in the posterior soft tissues of the nasopharynx, oropharynx and hypopharynx without focal fluid collection. Head MRI 06/08/18 00:00 CONCLUSION: 1. Mild degree of dural thickening and enhancement consistent with pachymeningitis, nonspecific. 2. No acute or focal parenchymal brain abnormalities. Lumbar Spine MRI 06/08/18 00:00 CONCLUSION: Minimal left sided epidural fluid and minimal fluid along the operative tract in the left paramedian back at the L4-5 level with moderate surrounding soft tissue edema and enhancement. Thoracic Spine MRI 06/08/18 00:00 CONCLUSION: Negative thoracic spine MRI examination. Lumbar Puncture Fluoroscopy 06/09/18 00:00 CONCLUSION: 1. Uncomplicated fluoroscopically guided lumbar puncture. Chest X-Ray 06/09/18 09:40 CONCLUSION: 1. Left subclavian central line distal tip in the superior vena cava. No pneumothorax is visualized. 2. Under inflation with bibasilar subsegmental atelectasis. Ribs X-Ray 06/13/18 00:00 CONCLUSION: Minimally displaced right lateral ninth rib fracture. No pneumothorax is visualized. Discharge Plan - Discharge Disposition Patient Disposition: W/Home Health Service - Discharge Condition Condition: Stable - Discharge Order Discharge Orders: Discharge Order (Routine); Ordered 06/16/18 Ordered By: Fanny Lutz - Discharge Details Anticipated Discharge Date: 06/16/18 Discharge Comment: Follouwp with Dr. Cordon in 1 week, call for an appt - Physicians Team Primary Care Provider: Nathalia Cordon Attending Provider: Craig Silva Other Providers: Ba Aviles MD ; Gurjit De Los Santos MD ; [facility],[place] ; Fara Chan MD
== END 2018-06-16 17:50 | disposition home health service (06) ==
LOC: NEPC 18:14 → NEDA 20:38 → HIMC 22:00 → N07 06-12 16:41 → PH3 06-12 17:49 → N07 06-12 18:08
PROVIDERS: ADMIT Internal Medicine Critical Care Medicine; ATTEND Internal Medicine Critical Care Medicine